=== PATIENT | female | born 1965 | race African-American/Black ===

== ENCOUNTER 2018-02-28 01:24 | Emergency (ER) | payer OTHER ==
[2018-02-28 01:55] LABS: Protime INR 1.03
[2018-02-28 02:04] LABS: Absolute Lymphocytes (CBC) 0.8 K/uL (0.7-4.9); Absolute Monocytes 0.1 K/uL (0.1-1.3); Absolute Neutrophil 5.6 K/uL (1.8-8.0); Basophils % 0.3 % (0-1.3); Eosinophils % 0.2 % (0-4.4); Hematocrit 39.4 % (36.0-45.0); Lymphocytes % 12.7 % (15.3-44.8); MCH 26.5 pg (27.0-35.0); MCV 85.3 fL (80-100); MPV 8.9 fL (7.6-11.3); Monocytes % 2.3 % (3.3-12.3); RBC Red Blood Cell Count 4.62 M/uL (3.86-4.86)
[2018-02-28 02:11] LABS: ALT/SGPT 14 U/L (12-78); AST/SGOT 15 U/L (15-37); Albumin 3.5 g/dL (3.4-5.0); Alkaline Phosphatase 72 U/L (45-117); BUN Blood Urea Nitrogen 8 mg/dL (7-18); Bicarbonate 28 mmol/L (21-32); Bilirubin Direct < 0.1 mg/dL (0-0.2); Bilirubin Total 0.1 mg/dL (0.2-1.0); Glucose Level 106 mg/dL (74-106); Magnesium 2.1 mg/dL (1.8-2.4); Potassium 4.2 mmol/L (3.5-5.1); Protein, Total 7.3 g/dL (6.4-8.2); Sodium Level 139 mmol/L (136-145)
[2018-02-28] MEDS ORDERED: IPRATROPIUM BROM 0.5MG/2.5ML ONE (02:43)
[2018-02-28] MEDS ORDERED: ALBUTEROL 2.5 MG/3 ML NEB SOL ONE (02:43)
[2018-02-28] MEDS ORDERED: ONDANSETRON 4 MG/2 ML VIAL ONE (02:43)
[2018-02-28] MEDS ORDERED: KETOROLAC 30 MG/ML INJ ONE (04:12)
--- NOTE | 2018-02-28 05:50 | ER ---
Nurse's Notes [facility] Name: Martha Riojas Age: 52 yrs Sex: Female : 1965 Arrival Date: 02/28/2018 Time: 01:30 Bed 27 Private MD: Diagnosis: Chest pain, unspecified Presentation: 02/28 01:31 Presenting complaint: EMS states: they were toned out for report of chest pain, SOB x 4 bb days pain is worsening. Transition of care: patient was not received from another setting of care. Onset of symptoms was February 23, 2018. Risk Assessment: Do you want to hurt yourself or someone else? Patient reports no desire to harm self or others. Initial Sepsis Screen: Does the patient meet any 2 criteria? No. Patient's initial sepsis screen is negative. Does the patient have a suspected source of infection? No. Patient's initial sepsis screen is negative. Care prior to arrival: Medication(s) given: ASA, 325 mg, x 1, Nitroglycerin, 0.4 mg SL x 1, zofran 4 mg, IV initiated. 20 GA, in the left antecubital area, Oxygen administered. via nasal cannula. 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 bb Historical: - Allergies: 01:40 Prednisone; I'M ALLERGIC TO IT BUT I HAVE TO TAKE IT FROM TIME TO TIME.; bb - Home Meds: 01:40 amlodipine 5 mg tab 1 tab once daily [Active]; metoprolol tartrate 100 mg Oral tab 1 bb tab 2 times per day [Active]; potassium chloride 10 mEq Oral cpER 1 cap once daily [Active]; metoprolol tartrate 25 mg Oral tab [Active]; furosemide 40 mg Oral tab 1 tab 2 times per day [Active]; nitroglycerin 0.4 mg SL subl as needed [Active]; cyclobenzaprine 10 mg Oral tab [Active]; Promethazine Oral [Active]; Zolpidem Tartrate Oral [Active]; - PMHx: 01:40 CHF; COPD; CVA; Diabetes - IDDM; Hypertension; Myocardial infarction; bb - PSHx: 01:40 Tubal ligation; cyst removal; bb - Immunization history:: Adult Immunizations up to date. - Social history:: Smoking status: Patient/guardian denies using tobacco, Patient/guardian denies using alcohol, street drugs. - Ebola Screening: : No symptoms or risks identified at this time. Screenin:43 Abuse screen: Denies threats or abuse. Nutritional screening: No deficits noted. bb Tuberculosis screening: No symptoms or risk factors identified. Fall Risk Secondary diagnosis (15 points) IV access (20 points). Ambulatory Aid- None/Bed Rest/Nurse Assist (0 pts). Mental Status- Oriented to own ability (0 pts). Total Lovell Fall Scale indicates Low Risk Score (25-44 pts). Fall prevention measures have been instituted. Side Rails Up X 2 As available Patient and Family Educated on Fall Prevention Program and strategies. Assessment: 02:25 General: Appears distressed, uncomfortable, Behavior is calm, cooperative, appropriate mb3 for age. Pain: Complains of pain in chest Pain does not radiate. Pain began gradually. Neuro: Level of Consciousness is awake, alert, obeys commands, Oriented to person, place, time, situation, Appropriate for age. Cardiovascular: Reports chest pain, nausea, shortness of breath, Heart tones present Capillary refill < 3 seconds Patient's skin is warm and dry. Pulses are palpable in right radial artery, right dorsalis pedis artery, left radial artery and left dorsalis pedis artery. Respiratory: Airway is patent Respiratory effort is even, labored, Respiratory pattern is tachypnea Stridor noted Breath sounds with wheezes bilaterally. GI: Abdomen is round obese, Bowel sounds present X 4 quads. Abd is soft and non tender Reports nausea. : No deficits noted. No signs and/or symptoms were reported regarding the genitourinary system. 04:03 Reassessment: Patient and/or family updated on plan of care and expected duration. Pain bb level reassessed. pt returned from CT scan via stretcher and is A\T\O x 4, resp unlabored, states she is having chest pain 06/18 Dr Solorio notified awaiting new orders. 05:05 Reassessment: pt appears to be sleeping, eyes closed, resp unlabored, no signs of bb discomfort noted, pt is awaiting CT results. 06:01 Reassessment: Pt is A\T\O x 4, resp unlabored, Dr Solorio at bedside for discussion of bb findings and recommendations pt to be discharged home and follow-up with PCP pt verbalized understanding of and agrees to plan of care. Pt awaiting arrival of daughter for transport home. Vital Signs: 01:40 BP 153 / 93; Pulse 69; Resp 18 S; Temp 97.8(O); Pulse Ox 96% on 2 lpm NC; Weight 81.65 bb kg (R); Height 5 ft. 3 in. (160.02 cm) (R); Pain 8/10; 02:54 BP 129 / 87; Pulse 70; Resp 19; Pulse Ox 100% on 3 lpm NC; mb3 04:04 BP 146 / 69; Pulse 80; Resp 20 S; Temp 98.4(O); Pulse Ox 96% on 2 lpm NC; Pain 10/10; bb 05:06 BP 104 / 68; Pulse 71; Resp 16; Pulse Ox 96% on 2 lpm NC; bb 06:02 BP 136 / 90; Pulse 72; Resp 14 S; Temp 98.4(O); Pulse Ox 97% on R/A; Pain 4/10; bb 01:40 Body Mass Index 31.89 (81.65 kg, 160.02 cm) bb ED Course: 01:30 Patient arrived in ED. bb 01:32 Bran Solorio MD is Attending Physician. gs 01:34 Triage completed. bb 01:40 Arm band placed on Patient placed in an exam room, on a stretcher, on oxygen. EKG bb completed in triage. Results shown to MD. 01:43 Initial lab(s) drawn, by ED staff, sent to lab. EKG done. Oxygen administration via bb nasal cannula \T\ 2L/min. 01:44 Patient has correct armband on for positive identification. Placed in gown. Bed in low bb position. Call light in reach. Side rails up X2. quality assurance monitor chassis on. Pulse ox on. NIBP on. 01:50 X-ray completed. Portable x-ray completed in exam room. Patient tolerated procedure kw well. 01:51 XRAY Chest (1 view) In Process Unspecified. EDMS 04:11 CT completed. Patient tolerated procedure well. Patient moved to CT via stretcher. Patient moved back from CT. 04:16 CT Chest For PE Angio In Process Unspecified. EDMS 04:23 Repeat lab(s) drawn. by me, sent to lab. bb 06:03 No provider procedures requiring assistance completed. IV discontinued, intact, bb bleeding controlled, No redness/swelling at site. Pressure dressing applied. Administered Medications: 02:47 Drug: Zofran 4 mg Route: IVP; Site: left antecubital; mb3 04:15 Follow up: Response: No adverse reaction bb 02:47 Drug: Albuterol 2.5 mg Route: Inhalation; mb3 02:47 Drug: AtroVENT Aerosol 0.5 mg Route: Inhalation; mb3 04:15 Drug: TORadol 30 mg Route: IVP; Site: left antecubital; bb 05:07 Follow up: Response: No adverse reaction; Pain is decreased bb Outcome: 05:49 Discharge ordered by . 06:06 Discharged to home with family. bb 06:06 Condition: stable 06:06 Discharge instructions given to patient, Instructed on discharge instructions, follow up and referral plans. medication usage, Demonstrated understanding of instructions, follow-up care. 06:58 Patient left the ED. bb Signatures: Dispatcher [employer] EDMS Evans Ochoa Brenda, RN RN bb Alize Millan Gregory, MD MD Shaw Townsend, RN RN mb3
--- NOTE | 2018-02-28 05:50 | EDPHYS ---
Physician Documentation [facility] Name: Martha Riojas Age: 52 yrs Sex: Female : 1965 Arrival Date: 02/28/2018 Time: 01:30 Bed 27 Private MD: ED Physician Bran Solorio HPI: 02/28 05:42 This 52 yrs old Black Female presents to ER via EMS with complaints of Chest Pain > 30 gs y/o. 05:42 The patient or guardian reports chest pain that is located primarily in the anterior gs chest wall. Onset: 5 day(s) ago. Associated signs and symptoms: Pertinent negatives: diaphoresis, shortness of breath, syncope. The chest pain is described as dull. Duration: The patient or guardian reports a single episode, that is still ongoing, and unchanged. Modifying factors: The symptoms are alleviated by nothing. the symptoms are aggravated by nothing. Severity of pain: At its worst the pain was moderate in the emergency department the pain has improved mildly. The patient has experienced similar episodes in the past, a few times. 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 bb Historical: - Allergies: 01:40 Prednisone; I'M ALLERGIC TO IT BUT I HAVE TO TAKE IT FROM TIME TO TIME.; bb - Home Meds: 01:40 amlodipine 5 mg tab 1 tab once daily [Active]; metoprolol tartrate 100 mg Oral tab 1 bb tab 2 times per day [Active]; potassium chloride 10 mEq Oral cpER 1 cap once daily [Active]; metoprolol tartrate 25 mg Oral tab [Active]; furosemide 40 mg Oral tab 1 tab 2 times per day [Active]; nitroglycerin 0.4 mg SL subl as needed [Active]; cyclobenzaprine 10 mg Oral tab [Active]; Promethazine Oral [Active]; Zolpidem Tartrate Oral [Active]; - PMHx: 01:40 CHF; COPD; CVA; Diabetes - IDDM; Hypertension; Myocardial infarction; bb - PSHx: 01:40 Tubal ligation; cyst removal; bb - Immunization history:: Adult Immunizations up to date. - Social history:: Smoking status: Patient/guardian denies using tobacco, Patient/guardian denies using alcohol, street drugs. - Ebola Screening: : No symptoms or risks identified at this time. ROS: 05:42 All other systems are negative. gs Exam: 05:42 Head/Face: Normocephalic, atraumatic. Eyes: Pupils equal round and reactive to light, gs extra-ocular motions intact. Lids and lashes normal. Conjunctiva and sclera are non-icteric and not injected. Cornea within normal limits. Periorbital areas with no swelling, redness, or edema. ENT: Nares patent. No nasal discharge, no septal abnormalities noted. Tympanic membranes are normal and external auditory canals are clear. Oropharynx with no redness, swelling, or masses, exudates, or evidence of obstruction, uvula midline. Mucous membranes moist. Neck: Trachea midline, no thyromegaly or masses palpated, and no cervical lymphadenopathy. Supple, full range of motion without nuchal rigidity, or vertebral point tenderness. No Meningismus. Chest/axilla: Normal chest wall appearance and motion. Nontender with no deformity. No lesions are appreciated. Cardiovascular: Regular rate and rhythm with a normal S1 and S2. No gallops, murmurs, or rubs. Normal PMI, no JVD. No pulse deficits. Respiratory: Lungs have equal breath sounds bilaterally, clear to auscultation and percussion. No rales, rhonchi or wheezes noted. No increased work of breathing, no retractions or nasal flaring. Abdomen/GI: Soft, non-tender, with normal bowel sounds. No distension or tympany. No guarding or rebound. No evidence of tenderness throughout. Back: No spinal tenderness. No costovertebral tenderness. Full range of motion. Skin: Warm, dry with normal turgor. Normal color with no rashes, no lesions, and no evidence of cellulitis. MS/ Extremity: Pulses equal, no cyanosis. Neurovascular intact. Full, normal range of motion. Neuro: Awake and alert, GCS 15, oriented to person, place, time, and situation. Cranial nerves II-XII grossly intact. Motor strength 5/5 in all extremities. Sensory grossly intact. Cerebellar exam normal. Normal gait. 05:42 Constitutional: The patient appears alert, awake. 05:42 ECG was reviewed by the Attending Physician. Vital Signs: 01:40 BP 153 / 93; Pulse 69; Resp 18 S; Temp 97.8(O); Pulse Ox 96% on 2 lpm NC; Weight 81.65 bb kg (R); Height 5 ft. 3 in. (160.02 cm) (R); Pain 8/10; 02:54 BP 129 / 87; Pulse 70; Resp 19; Pulse Ox 100% on 3 lpm NC; mb3 04:04 BP 146 / 69; Pulse 80; Resp 20 S; Temp 98.4(O); Pulse Ox 96% on 2 lpm NC; Pain 10/10; bb 05:06 BP 104 / 68; Pulse 71; Resp 16; Pulse Ox 96% on 2 lpm NC; bb 06:02 BP 136 / 90; Pulse 72; Resp 14 S; Temp 98.4(O); Pulse Ox 97% on R/A; Pain 4/10; bb 01:40 Body Mass Index 31.89 (81.65 kg, 160.02 cm) MDM: 01:39 Patient medically screened. 05:42 Differential diagnosis: abnormal EKG, coronary artery disease chest wall pain. Data gs reviewed: vital signs, nurses notes. Data reviewed: lab test result(s), EKG, radiologic studies. Response to treatment: the patient's symptoms have resolved after treatment, and as a result, I will discharge patient. 02/28 01:40 Order name: Basic Metabolic Panel 02/28 01:40 Order name: CBC with Diff 02/28 01:40 Order name: LFT's; Complete Time: 02:26 02/28 01:40 Order name: Magnesium; Complete Time: 02:26 02/28 01:40 Order name: PT-INR; Complete Time: 02:26 02/28 01:40 Order name: Troponin (emerg Dept Use Only); Complete Time: 02:26 02/28 01:40 Order name: XRAY Chest (1 view) 02/28 01:40 Order name: Basic Metabolic Panel; Complete Time: 02:26 EDMS 02/28 01:40 Order name: CBC with Automated Diff; Complete Time: 02:26 EDMS 02/28 03:23 Order name: CT Chest For PE Angio 02/28 03:23 Order name: Troponin I; Complete Time: 05:29 02/28 01:40 Order name: EKG; Complete Time: 01:41 02/28 01:40 Order name: Cardiac monitoring; Complete Time: 01:42 02/28 01:40 Order name: EKG - Nurse/Tech; Complete Time: :42 02/28 01:40 Order name: IV Saline Lock; Complete Time: 02/28 01:40 Order name: Labs collected and sent; Complete Time: :43 02/28 01:40 Order name: O2 Per Protocol; Complete Time: : 02/28 01:40 Order name: O2 Sat Monitoring; Complete Time: EC:42 Rate is 63 beats/min. Rhythm is regular. MT interval is normal. QRS interval is normal. QT interval is normal. T waves are Flattened in lead aVL. Clinical impression: Abnormal EKG without significant change. Interpreted by me. Administered Medications: 02:47 Drug: Zofran 4 mg Route: IVP; Site: left antecubital; mb3 04:15 Follow up: Response: No adverse reaction bb 02:47 Drug: Albuterol 2.5 mg Route: Inhalation; mb3 02:47 Drug: AtroVENT Aerosol 0.5 mg Route: Inhalation; mb3 04:15 Drug: TORadol 30 mg Route: IVP; Site: left antecubital; bb 05:07 Follow up: Response: No adverse reaction; Pain is decreased bb Disposition: 02/28/18 05:49 Discharged to Home. Impression: Chest pain, unspecified. - Condition is Stable. - Discharge Instructions: Nonspecific Chest Pain. - Medication Reconciliation Form, Thank You Letter, Antibiotic Education, Prescription Opioid Use form. - Follow up: Private Physician; When: 2 - 3 days; Reason: Re-evaluation by your physician. Signatures: Dispatcher [employer] Crissy Lauren RN RN Bran Green MD MD gs Barnett, Mark, RN RN mb3 Corrections: (The following items were deleted from the chart) 06:58 05:49 02/28/2018 05:49 Discharged to Home. Impression: Chest pain, unspecified. bb Condition is Stable. Forms are Medication Reconciliation Form, Thank You Letter, Antibiotic Education, Prescription Opioid Use. Follow up: Private Physician; When: 2 - 3 days; Reason: Re-evaluation by your physician.
[2018-02-28 07:05] VITALS: TEMP 98.4
[2018-02-28 07:08] VITALS: BP 136/90; O2SAT 97
--- NOTE | 2018-02-28 09:39 | RAD REPORT ---
EXAM DESCRIPTION: CT - Chest For Pe Angio - 02/28/2018 6:58 am CLINICAL HISTORY: Chest pain and shortness of breath for 4 days COMPARISON: January 2017 TECHNIQUE: Dynamically enhanced axial 3 mm thick images of the chest were obtained during administra tion of <100> mL Isovue 370 IV contrast. Coronal and oblique reconstruction images were generated and reviewed. Exam utilizes a protocol for optimal evaluation of pulmonary arterial tree.A preliminary r eport was generated by virtual radiologic and reviewed prior to this dictation Maximum intensity projections 3D imaging was utilized All CT scans are performed using dose optimization technique as appropriate and may include automated exposure control or mA/KV adjustment according to patient size. FINDINGS: A pulmonary embolus is not seen. Evaluation of the peripheral pulmonary arteries is somewh at limited secondary to respiratory motion artifact. A thoracic aortic aneurysm is not noted. A pleural effusion is not seen. A pericardial effusion is not seen. A lung consolidation is not present. IMPRESSION: Negative for a pulmonary embolism.
--- NOTE | 2018-02-28 09:55 | RAD REPORT ---
EXAM DESCRIPTION: Jo Single View02/28/2018 1:53 am CLINICAL HISTORY: Chest pain COMPARISON: January 2017 FINDINGS: The lungs appear clear of acute infiltrate. The heart is normal size IMPRESSION: No acute abnormalities displayed
--- NOTE | 2018-02-28 11:13 | EKG ---
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
== END 2018-02-28 06:58 | disposition home or self-care (01) ==
LOC: ER 01:24
DX: R07.9 Chest pain, unspecified (principal); I10 Essential (primary) hypertension; I25.2 Old myocardial infarction; J44.9 Chronic obstructive pulmonary disease, unspecified
CPT/HCPCS: 36415; 71045; 71275; 80048; 80076; 83735; 84484 ×2; 85025; 85610; 93005; 96374; 96375; 99285; J2405; Q9967

== ENCOUNTER 2018-04-06 06:46 | Emergency (ER) | payer OTHER ==
[2018-04-06] MEDS ORDERED: NA CHLORIDE 0.9% 1,000 ML ONE (07:31)
--- NOTE | 2018-04-06 07:42 | RAD REPORT ---
EXAM DESCRIPTION: CT - Ct Stroke Brain Wo Cont - 04/06/2018 7:30 am CLINICAL HISTORY: Left-sided weakness, slurred speech CLINICAL HISTORY: None. TECHNIQUE: Axial 5 millimeter thick images of the head were obtained without IV contrast. All CT scans are performed using dose optimization technique as appropriate and may include automated exposure control or mA/KV adjustment according to patient size. FINDINGS: No intracranial hemorrhage, mass, or cerebral edema. No acute cortical based infarction. A trophy changes are minimal. Moderate chronic ischemic change in the cerebral white matter. Findings a re advanced for age. Chronic ischemic changes still most likely rather than metabolic white matter di sease. No extra-axial fluid collections. Soni matter-white matter differentiation is preserved. Visualized portions of the mastoid air cells, paranasal sinuses, and orbits are unremarkable. Findings telephoned to the referring clinician 7:36 a.m. IMPRESSION: No intracranial hemorrhage and no acute cortical based infarction identifiable. Patient has moderate severity white matter disease. This is advanced for age but still favored to be chronic ischemic change rather than a metabolic white matter process.
[2018-04-06] MEDS ORDERED: IPRATROPIUM BROM 0.5MG/2.5ML ONE (08:16)
[2018-04-06] MEDS ORDERED: ALBUTEROL 2.5 MG/3 ML NEB SOL ONE (08:16)
[2018-04-06] MEDS ORDERED: HYDRALAZINE HCL 20 MG/ML VIAL ONE (08:17)
[2018-04-06] MEDS ORDERED: HYDROCODONE/APAP 7.5/325 MG TAB ONE (08:17)
[2018-04-06 08:37] LABS: Absolute Lymphocytes (CBC) 2.2 K/uL (0.7-4.9); Absolute Monocytes 0.5 K/uL (0.1-1.3); Absolute Neutrophil 2.9 K/uL (1.8-8.0); Basophils % 0.6 % (0-1.3); Eosinophils % 0.8 % (0-4.4); Hematocrit 36.9 % (36.0-45.0); Lymphocytes % 38.9 % (15.3-44.8); MCH 28.5 pg (27.0-35.0); MCV 87.4 fL (80-100); Monocytes % 8.9 % (3.3-12.3); RBC Red Blood Cell Count 4.22 M/uL (3.86-4.86)
[2018-04-06 08:41] LABS: Protime INR 1.03
[2018-04-06 08:54] LABS: ALT/SGPT 12 U/L (12-78); AST/SGOT 15 U/L (15-37); Albumin 3.2 g/dL (3.4-5.0); Alkaline Phosphatase 68 U/L (45-117); BUN Blood Urea Nitrogen 8 mg/dL (7-18); Bicarbonate 27 mmol/L (21-32); Bilirubin Direct < 0.1 mg/dL (0-0.2); Bilirubin Total 0.2 mg/dL (0.2-1.0); CKMB Creatine Kinase MB < 1.0 ng/mL (0.3-3.6); Creatine Phosphokinase 172 U/L (26-192); Glucose Level 78 mg/dL (74-106); Magnesium 2.3 mg/dL (1.8-2.4); NT PRO-BNP 31 pg/mL (<125); Potassium 3.9 mmol/L (3.5-5.1); Protein, Total 6.8 g/dL (6.4-8.2); Sodium Level 142 mmol/L (136-145)
[2018-04-06 09:15] LABS: Platelet Estimate DECR
[2018-04-06 09:16] LABS: Blood Morphology Comment NOT SEEN (NOT SEEN)
[2018-04-06 09:17] LABS: Urine White Blood Cell Casts OK
[2018-04-06 09:58] LABS: Urine Blood TRACE (NEG); Urine Glucose NEGATIVE (NEG); Urine Protein TRACE (NEG); Urine pH 5.5 (5.0-7.0)
[2018-04-06 10:04] LABS: Urine Amorphous Sediment 1+ /HPF (NONE SEEN); Urine Bacteria <20 /HPF (<20); Urine Culture Reflex Order REFLEXED; Urine Yeast FEW (NONE SEEN)
--- NOTE | 2018-04-06 10:19 | ER ---
Nurse's Notes [facility] Name: Martha Riojas Age: 52 yrs Sex: Female : 1965 Arrival Date: 04/06/2018 Time: 06:49 Bed 13 Private MD: Nikole Johnston H Diagnosis: Unspecified abdominal pain;Hypokalemia;Alcohol abuse with intoxication;Candidiasis of vulva and vagina Presentation: 04/06 06:50 Method Of Arrival: Ambulatory 06:50 Acuity: SOL 3 06:50 Presenting complaint: Patient states: that at 1800 last night she started to have left fc arm and leg numbness along with chest pain. Also having dizziness, nausea, vomiting and diarrhea. Pt states that she saw Dr Johnston last Saturday for a stroke that he thinks she had 1 week ago. Transition of care: patient was not received from another setting of care. Onset of symptoms was April 05, 2018 at 18:00. Risk Assessment: Do you want to hurt yourself or someone else? Patient reports no desire to harm self or others. Initial Sepsis Screen: Does the patient meet any 2 criteria? No. Patient's initial sepsis screen is negative. Does the patient have a suspected source of infection? No. Patient's initial sepsis screen is negative. Care prior to arrival: Medication(s) given: Nitroglycerin, 0.4 mg SL x 2, Tylenol, at 0100 at 0045. 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 Historical: - Allergies: 07:18 Prednisone; I'M ALLERGIC TO IT BUT I HAVE TO TAKE IT FROM TIME TO TIME.; fc - Home Meds: 07:00 amlodipine 5 mg tab 1 tab once daily [Active]; cyclobenzaprine 10 mg Oral tab [Active]; rb1 furosemide 40 mg Oral tab 1 tab 2 times per day [Active]; metoprolol tartrate 100 mg Oral tab 1 tab 2 times per day [Active]; metoprolol tartrate 25 mg Oral tab [Active]; nitroglycerin 0.4 mg SL subl as needed [Active]; potassium chloride 10 mEq Oral cpER 1 cap once daily [Active]; Promethazine Oral [Active]; Zolpidem Tartrate Oral [Active]; - PMHx: 07:18 CHF; COPD; CVA; Diabetes - IDDM; Hypertension; Myocardial infarction; fc - PSHx: 07:18 ; fc 07:00 Tubal ligation; rb1 - Immunization history:: Last tetanus immunization: unknown. - Social history:: Smoking status: Patient/guardian denies using tobacco. - Ebola Screening: : Patient negative for fever greater than or equal to 101.5 degrees Fahrenheit, and additional compatible Ebola Virus Disease symptoms Patient denies exposure to infectious person Patient denies travel to an Ebola-affected area in the 21 days before illness onset. Screenin:50 Abuse screen: Denies threats or abuse. Nutritional screening: No deficits noted. fc Tuberculosis screening: No symptoms or risk factors identified. Fall Risk None identified. Assessment: 06:55 General: Appears in no apparent distress. comfortable, Behavior is Denies fever. Pain: rb1 Complains of pain in mid-sternal area Pain currently is 6 out of 10 on a pain scale. Pain began last night. Neuro: Level of Consciousness is awake, alert, obeys commands, Oriented to person, place, time, situation. Neuro: Box Tender are weak on left Weakness in left Gait is steady, Speech is normal, Facial symmetry appears normal, Pupils are PERRLA. Cardiovascular: Capillary refill < 3 seconds is brisk in bilateral fingers. Respiratory: Airway is patent Respiratory effort is even, unlabored, Respiratory pattern is regular, symmetrical. GI: Reports diarrhea, nausea. : No signs and/or symptoms were reported regarding the genitourinary system. Derm: Skin is dry, Skin is normal, Skin temperature is warm. Musculoskeletal: Range of motion: intact in all extremities. 07:52 Reassessment: Patient appears in no apparent distress at this time. No changes from rb1 previously documented assessment. 08:50 Reassessment: Patient appears in no apparent distress at this time. Patient and/or rb1 family updated on plan of care and expected duration. Pain level reassessed. Patient is alert, oriented x 3, equal unlabored respirations, skin warm/dry/pink. 09:10 Reassessment: Pt. ambulated to the restroom with standby assist without difficulty. rb1 10:00 Reassessment: Patient and/or family updated on plan of care and expected duration. Pain rb1 level reassessed. Patient is alert, oriented x 3, equal unlabored respirations, skin warm/dry/pink. 10:45 Reassessment: Patient appears in no apparent distress at this time. No changes from rb1 previously documented assessment. Vital Signs: 06:50 BP 190 / 82; Pulse 70; Resp 20; Temp 97.2(O); Pulse Ox 97% on R/A; Weight 83.01 kg (R); fc Height 5 ft. 3 in. (160.02 cm) (R); Pain 6/10; 07:45 BP 131 / 70; Pulse 58; Resp 15; Pulse Ox 97% on R/A; rb1 08:30 BP 165 / 67; Pulse 51; Resp 13; Pulse Ox 97% on R/A; rb1 09:00 BP 139 / 79; Pulse 74; Resp 20; Pulse Ox 95% on R/A; rb1 10:00 BP 141 / 82; Pulse 68; Resp 19; Pulse Ox 99% on R/A; rb1 06:50 Body Mass Index 32.42 (83.01 kg, 160.02 cm) ED Course: 06:49 Patient arrived in ED. es 06:50 Nikole Johnston DO is Private Physician. es 06:50 Karine Sanchez F[facility] kav 06:50 Thanh Echevarria MD is Attending Physician. kav 06:50 Arm band placed on Patient placed in an exam room, on a stretcher. fc 06:50 Patient has correct armband on for positive identification. Placed in gown. Bed in low fc position. Call light in reach. Side rails up X 1. cafeteria monitor on. Pulse ox on. NIBP on. 06:50 No provider procedures requiring assistance completed. fc 07:12 Triage completed. fc 07:15 Vale Basurto, RN is Primary Nurse. rb1 07:30 CT Stroke Brain w/o Contrast In Process Unspecified. EDMS 08:00 X-ray completed. Portable x-ray completed in exam room. Patient tolerated procedure mh1 well. 08:01 XRAY Chest (1 view) In Process Unspecified. EDMS 08:23 Inserted saline lock: 20 gauge in left antecubital area, using aseptic technique. em 08:28 Missed attempt(s): 20 gauge in right antecubital area. Blood collected and sent.. ag Bleeding controlled, band aid applied, catheter tip intact. 08:31 Basic Metabolic Panel Sent. ag 08:31 CBC with Diff Sent. ag 08:31 Ckmb Sent. ag 08:31 CPK Sent. ag 08:31 LFT's Sent. ag 08:31 Magnesium Sent. ag 08:31 NT PRO-BNP Sent. ag 08:31 PT-INR Sent. ag 08:31 Ptt, Activated Sent. ag 10:17 Vickie EmmaDO Sebastian is Referral Physician. kav 10:53 Patient did not have IV access during this emergency room visit. rb1 Administered Medications: 08:23 Drug: DuoNeb (3:1) (2.5 mg - 0.5 mg) 3 ml {Note: I was in with a trauma pt..} Route: rb1 Nebulizer; 08:43 Follow up: Response: No adverse reaction; Marked relief of symptoms rb1 08:23 Drug: [place] (7.5 mg-325 mg) 1 tabs {Note: I was in with a trauma pt..} Route: PO; rb1 09:00 Follow up: Response: No adverse reaction; Pain is decreased rb1 09:40 Not Given (md): hydrALAZINE 10 mg IV at bolus once [facility] Point of Care Testing: Blood Glucose: 08:37 Blood Glucose: 65 mg/dL; rb1 09:18 Blood Glucose: 113 mg/dL; rb1 Ranges: Outcome: 10:18 Discharge ordered by MD. ka 10:53 Patient left the ED. ss 10:53 Discharged to home ambulatory. rb1 10:53 Discharged to home with family. 10:53 Condition: stable 10:53 Discharge instructions given to patient, Instructed on discharge instructions, follow up and referral plans. Demonstrated understanding of instructions, follow-up care, medications, Prescriptions given X 2. Signatures: Dispatcher [employer] Karine Eng, WELCOME DESK AGENT WELCOME DESK AGENT kaMelissa Maki Martha 1 Tati Shay, Louis Chaidez RN, TRANSISTOR TESTER TRANSISTOR TESTER Mercedes Souza RN RN Kinza Cochran Rebecca, RN RN rb1
--- NOTE | 2018-04-06 10:19 | EDPHYS ---
Physician Documentation [facility] Name: Martha Riojas Age: 52 yrs Sex: Female : 1965 Arrival Date: 04/06/2018 Time: 06:49 Bed 13 Private MD: Nikole Johnston H ED Physician Thanh Echevarria HPI: 04/06 06:50 This 52 yrs old Black Female presents to ER via Unassigned with complaints of Numbness. kav 07:04 This 52 yrs old Black Female presents to ER via Unassigned with complaints of Numbness. kav 07:04 The patient's problem is reported as weakness, in the left upper extremity. Onset: The kav symptoms/episode began/occurred acutely, 24 hour(s) ago. Duration: The episode is continuous. Context:. Associated signs and symptoms: Pertinent positives: chest pain, weakness. Severity of symptoms: At their worst the symptoms were moderate just prior to arrival. Patient's baseline: Neuro: alert and fully oriented, Motor: left-sided weakness, Ambulation: walks without assistance, Speech: normal, The patient has a previous history of CVA, approximately 1 week ago. The patient has experienced a previous episode, approximately 1 weeks ago. Patient reports that she had a stroke approximately 1 week ago. She reports that she was seen by her PCP/Dr. Johnston 3 days ago and is schedule to have an outpatient MRI this next week. She reports having chest pain \T\ 1200 midnight and increasing weakness in the LUE.. 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 fc Historical: - Allergies: 07:18 Prednisone; I'M ALLERGIC TO IT BUT I HAVE TO TAKE IT FROM TIME TO TIME.; fc - Home Meds: 07:00 amlodipine 5 mg tab 1 tab once daily [Active]; cyclobenzaprine 10 mg Oral tab [Active]; rb1 furosemide 40 mg Oral tab 1 tab 2 times per day [Active]; metoprolol tartrate 100 mg Oral tab 1 tab 2 times per day [Active]; metoprolol tartrate 25 mg Oral tab [Active]; nitroglycerin 0.4 mg SL subl as needed [Active]; potassium chloride 10 mEq Oral cpER 1 cap once daily [Active]; Promethazine Oral [Active]; Zolpidem Tartrate Oral [Active]; - PMHx: 07:18 CHF; COPD; CVA; Diabetes - IDDM; Hypertension; Myocardial infarction; fc - PSHx: 07:18 ; fc 07:00 Tubal ligation; rb1 - Immunization history:: Last tetanus immunization: unknown. - Social history:: Smoking status: Patient/guardian denies using tobacco. - Ebola Screening: : Patient negative for fever greater than or equal to 101.5 degrees Fahrenheit, and additional compatible Ebola Virus Disease symptoms Patient denies exposure to infectious person Patient denies travel to an Ebola-affected area in the 21 days before illness onset. ROS: 07:09 Constitutional: Negative for fever, chills, and weight loss, Eyes: Negative for injury, kav pain, redness, and discharge, ENT: Negative for injury, pain, and discharge, Neck: Negative for injury, pain, and swelling, Respiratory: Negative for shortness of breath, cough, wheezing, and pleuritic chest pain, Abdomen/GI: Negative for abdominal pain, nausea, vomiting, diarrhea, and constipation, Back: Negative for injury and pain, : Negative for injury, bleeding, discharge, and swelling, MS/Extremity: Negative for injury and deformity, Skin: Negative for injury, rash, and discoloration, Psych: Negative for depression, anxiety, suicide ideation, homicidal ideation, and hallucinations, Allergy/Immunology: Negative for hives, rash, and allergies, Endocrine: Negative for neck swelling, polydipsia, polyuria, polyphagia, and marked weight changes, Hematologic/Lymphatic: Negative for swollen nodes, abnormal bleeding, and unusual bruising. 07:14 Cardiovascular: Positive for chest pain, of the mid-sternal area. kav 07:14 Neuro: Positive for weakness, of the left arm. Exam: 07:15 Constitutional: This is a well developed, well nourished patient who is awake, alert, kav and in no acute distress. Head/Face: Normocephalic, atraumatic. Eyes: Pupils equal round and reactive to light, extra-ocular motions intact. Lids and lashes normal. Conjunctiva and sclera are non-icteric and not injected. Cornea within normal limits. Periorbital areas with no swelling, redness, or edema. ENT: Nares patent. No nasal discharge, no septal abnormalities noted. Tympanic membranes are normal and external auditory canals are clear. Oropharynx with no redness, swelling, or masses, exudates, or evidence of obstruction, uvula midline. Mucous membranes moist. Neck: Trachea midline, no thyromegaly or masses palpated, and no cervical lymphadenopathy. Supple, full range of motion without nuchal rigidity, or vertebral point tenderness. No Meningismus. Chest/axilla: Normal chest wall appearance and motion. Nontender with no deformity. No lesions are appreciated. Abdomen/GI: Soft, non-tender, with normal bowel sounds. No distension or tympany. No guarding or rebound. No evidence of tenderness throughout. Back: No spinal tenderness. No costovertebral tenderness. Full range of motion. Skin: Warm, dry with normal turgor. Normal color with no rashes, no lesions, and no evidence of cellulitis. MS/ Extremity: Pulses equal, no cyanosis. Neurovascular intact. Full, normal range of motion. Psych: Awake, alert, with orientation to person, place and time. Behavior, mood, and affect are within normal limits. 10:19 Radiologist reports: negative for acute findings [facility] Vital Signs: 06:50 BP 190 / 82; Pulse 70; Resp 20; Temp 97.2(O); Pulse Ox 97% on R/A; Weight 83.01 kg (R); fc Height 5 ft. 3 in. (160.02 cm) (R); Pain 6/10; 07:45 BP 131 / 70; Pulse 58; Resp 15; Pulse Ox 97% on R/A; rb1 08:30 BP 165 / 67; Pulse 51; Resp 13; Pulse Ox 97% on R/A; rb1 09:00 BP 139 / 79; Pulse 74; Resp 20; Pulse Ox 95% on R/A; rb1 10:00 BP 141 / 82; Pulse 68; Resp 19; Pulse Ox 99% on R/A; rb1 06:50 Body Mass Index 32.42 (83.01 kg, 160.02 cm) MDM: 07:09 Patient medically screened. [facility] 07:44 Data reviewed: radiologic studies, CT scan. [facility] 08:02 ED course: awaiting labs and urine results. [facility] 09:24 ED course: Awaiting Urine Results. [facility] 04/06 07:13 Order name: Basic Metabolic Panel; Complete Time: 08:56 [facility] 04/06 07:13 Order name: CBC with Diff; Complete Time: 09:23 04/06 07:13 Order name: Ckmb; Complete Time: 08:56 04/06 07:13 Order name: CPK; Complete Time: 08:56 04/06 07:13 Order name: LFT's; Complete Time: 08:56 04/06 07:13 Order name: Magnesium; Complete Time: 08:56 04/06 07:13 Order name: NT PRO-BNP; Complete Time: 08:56 04/06 07:13 Order name: PT-INR; Complete Time: 08:48 04/06 07:13 Order name: Ptt, Activated; Complete Time: 08:48 04/06 07:13 Order name: Troponin (emerg Dept Use Only); Complete Time: 08:48 04/06 07:13 Order name: Urine Microscopic Only; Complete Time: 10:13 04/06 08:38 Order name: CBC Smear Scan; Complete Time: 09:23 EDMS 04/06 09:48 Order name: Urine Dipstick--Ancillary (enter results) 04/06 09:48 Order name: Urine --Ancillary (enter results) 04/06 07:13 Order name: Urine Test (obtain specimen); Complete Time: 09:40 04/06 07:13 Order name: XRAY Chest (1 view) 04/06 07:13 Order name: EKG; Complete Time: 07:14 04/06 07:13 Order name: Cardiac monitoring; Complete Time: 08:30 04/06 07:13 Order name: EKG - Nurse/Tech; Complete Time: 08:30 04/06 07:13 Order name: IV Saline Lock; Complete Time: 08:30 04/06 07:13 Order name: Labs collected and sent; Complete Time: 08:30 04/06 07:13 Order name: O2 Per Protocol; Complete Time: 08:30 04/06 07:13 Order name: O2 Sat Monitoring; Complete Time: 08:30 04/06 07:13 Order name: CT Stroke Brain w/o Contrast; Complete Time: 08:01 04/06 09:48 Order name: Urine Dipstick-Ancillary [facility] 04/06 09:48 Order name: Urine --Ancillary [facility] 04/06 10:06 Order name: Urine Culture [facility] 04/06 07:13 Order name: Urine Dipstick-Ancillary (obtain specimen); Complete Time: 09:40 kav 04/06 07:13 Order name: Accucheck; Complete Time: 08:49 kav 04/06 07:13 Order name: NPO; Complete Time: 08:39 kav 04/06 07:13 Order name: Stroke Swallow Screen; Complete Time: 08:39 kav 04/06 08:21 Order name: VS Recheck; Complete Time: 08:49 kav Administered Medications: 08:23 Drug: DuoNeb (3:1) (2.5 mg - 0.5 mg) 3 ml {Note: I was in with a trauma pt..} Route: rb1 Nebulizer; 08:43 Follow up: Response: No adverse reaction; Marked relief of symptoms rb1 08:23 Drug: [place] (7.5 mg-325 mg) 1 tabs {Note: I was in with a trauma pt..} Route: PO; rb1 09:00 Follow up: Response: No adverse reaction; Pain is decreased rb1 09:40 Not Given (): hydrALAZINE 10 mg IV at bolus once kav Point of Care Testing: Blood Glucose: 08:37 Blood Glucose: 65 mg/dL; rb1 09:18 Blood Glucose: 113 mg/dL; rb1 Ranges: Critical Glucose Levels:Adult <50 mg/dl or >400 mg/dl <40 mg/dl or >180 mg/dl Disposition: 04/07 10:49 Co-signature as Attending Physician, Thanh Echevarria MD I agree with the assessment and guilherme plan of care. Disposition: 04/06/18 10:18 Discharged to Home. Impression: Unspecified abdominal pain, Hypokalemia, Alcohol abuse with intoxication, Candidiasis of vulva and vagina. - Condition is Stable. - Discharge Instructions: Abdominal Pain, Adult, Potassium Content of Foods, Vaginal Yeast Infection, Adult, Hypokalemia. - Prescriptions for Pepcid 20 mg Oral Tablet - take 1 tablet by ORAL route every 12 hours for 10 days; 20 tablet. Diflucan 150 mg Oral Tablet - take 1 tablet by ORAL route one time for 1 day; 1 tablet. - Medication Reconciliation Form, Thank You Letter, Antibiotic Education form. - Follow up: Nikole Johnston; When: 2 - 3 days; Reason: Recheck today's complaints, Continuance of care, Re-evaluation by your physician. - Problem is new. - Symptoms have improved. Signatures: Dispatcher [employer] EDMS Thanh Echevarria MD MD cha Vern, Katherine, DATABASES COMPUTER CONSULTANT DATABASES COMPUTER CONSULTANT Tati Moran RN RN Mercedes King RN RN Vale Hernandez, OSITO RN rb1 Corrections: (The following items were deleted from the chart) 04/06 07:08 06:50 Onset: The symptoms/episode began/occurred acutely, 6 hour(s) ago, gaston feldman 07:08 06:50 Associated signs and symptoms: Pertinent positives: chest pain, gaston feldman 10:53 10:18 04/06/2018 10:18 Discharged to Home. Impression: Unspecified abdominal pain; ss Hypokalemia; Alcohol abuse with intoxication; Candidiasis of vulva and vagina. Condition is Stable. Discharge Instructions: Abdominal Pain, Adult, Potassium Content of Foods, Hypokalemia. Prescriptions for Pepcid 20 mg Oral Tablet - take 1 tablet by ORAL route every 12 hours for 10 days; 20 tablet. and Forms are Medication Reconciliation Form, Thank You Letter, Antibiotic Education, Prescription Opioid Use. Follow up: Nikole Johnston; When: 2 - 3 days; Reason: Recheck today's complaints, Continuance of care, Re-evaluation by your physician. Problem is new. Symptoms have improved. kav
[2018-04-06 10:59] VITALS: TEMP 97.2
[2018-04-06 11:02] VITALS: BP 139/79; O2SAT 95
--- NOTE | 2018-04-06 11:59 | RAD REPORT ---
EXAM DESCRIPTION: RAD - Chest Single View - 04/06/2018 8:01 am CLINICAL HISTORY: Left-sided chest pain COMPARISON: February 2018 TECHNIQUE: AP portable chest image was obtained 0753 hours . FINDINGS: Lungs are clear. Heart and vasculature are normal. No measurable pleural effusion and no p neumothorax. No gross bony abnormality seen. No acute aortic findings suspected. IMPRESSION: No acute cardiopulmonary process. No significant interval change.
--- NOTE | 2018-04-06 12:10 | EKG ---
Test Date: 2018-04-06 Test Time: 09:21:32 Ships Equipment Engineer: [facility] MEASUREMENT RESULTS: Intervals: Rate: 65 GA: 142 QRSD: 82 QT: 382 QTc: 397 [place]: P: 63 GA: 142 QRS: 62 T: -11 INTERPRETIVE STATEMENTS: Sinus rhythm with marked sinus arrhythmia Nonspecific T wave abnormality Abnormal ECG Compared to ECG 02/28/2018 01:31:21 T-wave abnormality now present Electronically Signed On 04-06-18 12:09:44 CDT by Darrin Jackson
== END 2018-04-06 10:53 | disposition home or self-care (01) ==
LOC: ER 06:46
DX: R10.9 Unspecified abdominal pain (principal); E87.6 Hypokalemia; F10.120 Alcohol abuse with intoxication, uncomplicated; B37.3 Candidiasis of vulva and vagina; I11.0 Hypertensive heart disease with heart failure; I50.9 Heart failure, unspecified; J44.9 Chronic obstructive pulmonary disease, unspecified; E11.9 Type 2 diabetes mellitus without complications; Z79.4 Long term (current) use of insulin; Z88.8 Allergy status to other drugs, medicaments and biological substances
CPT/HCPCS: 36415; 70450; 71045; 80048; 80076; 81025; 82550; 82553; 82962; 83735; 83880; 84484; 85025; 85610; 85730; 87086; 87088; 93005; J0360; J7030; 81003; 81015; 94640; 99285

== ENCOUNTER 2018-12-18 08:51 | Observation (INO) | payer OTHER ==
[2018-12-18 09:20] LABS: Absolute Lymphocytes (CBC) 1.7 K/uL (0.7-4.9); Absolute Monocytes 0.5 K/uL (0.1-1.3); Absolute Neutrophil 7.4 K/uL (1.8-8.0); Basophils % 0.3 % (0-1.3); Eosinophils % 0.8 % (0-4.4); Hematocrit 43.8 % (36.0-45.0); Lymphocytes % 17.7 % (15.3-44.8); Monocytes % 5.3 % (3.3-12.3); RBC Red Blood Cell Count 4.75 M/uL (3.86-4.86)
[2018-12-18] MEDS ORDERED: LEVALBUTEROL 1.25 MG/3 ML NEB ONE (09:20)
[2018-12-18] MEDS ORDERED: METHYLPREDNISOLONE 125 MG INJ ONE (09:20)
[2018-12-18 09:40] LABS: BUN Blood Urea Nitrogen 12 mg/dL (7-18); Bicarbonate 29 mmol/L (21-32); Glucose Level 83 mg/dL (74-106); NT PRO-BNP 16 pg/mL (<125); Potassium 3.9 mmol/L (3.5-5.1); Sodium Level 143 mmol/L (136-145); Troponin (Emerg Dept Use Only) < 0.02 ng/mL (0.0-0.045)
--- NOTE | 2018-12-18 10:04 | RAD REPORT ---
EXAM DESCRIPTION: RAD - Chest Single View - 12/18/2018 9:49 am CLINICAL HISTORY: Chest pain;Dyspnea Chest pain. COMPARISON: Chest Single View dated 04/06/2018; Chest Single View dated 02/28/2018; Chest Single View dated 01/21/2017; Chest Single View dated 01/20/2017 FINDINGS: Portable technique limits examination quality. Mild linear opacity is present in the right lung base probably representing atelectasis or developing pneumonia. The lungs are otherwise clear. The heart is normal in size. No displaced fractures.
[2018-12-18] MEDS ORDERED: AZITHROMYCIN IV 500 MG in NA CHLORIDE 0.9% 250 ML IVPB ONE (10:30)
--- NOTE | 2018-12-18 10:37 | EDPHYS ---
Physician Documentation [facility] Name: Martha Riojas Age: 53 yrs Sex: Female : 1965 Arrival Date: 12/18/2018 Time: 08:57 Bed 8 Private MD: ED Physician Jeff Bobo HPI: 12/18 09:05 This 53 yrs old Black Female presents to ER via Unassigned with complaints of Breathing rn Difficulty. 09:05 The patient has shortness of breath at rest, with light activity. Onset: The rn symptoms/episode began/occurred 3 day(s) ago. Duration: The symptoms are intermittent. The patient's shortness of breath is aggravated by exertion, light activity, supine position, talking, walking. Associated signs and symptoms: Pertinent positives: chest pain, non-productive cough, Pertinent negatives: fever, hemoptysis. Severity of symptoms: At their worst the symptoms were moderate in the emergency department the symptoms are unchanged. The patient has experienced similar episodes in the past. The patient has not recently seen a physician. 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 [facility] N/A - iw Historical: - Allergies: 09:28 Prednisone; I'M ALLERGIC TO IT BUT I HAVE TO TAKE IT FROM TIME TO TIME.; iw - Home Meds: 09:41 metoprolol tartrate 100 mg oral tab once daily [Active]; amlodipine 5 mg tab 1 tab once iw daily [Active]; clonidine HCl 0.3 mg Oral tab 1 tab 2 times per day [Active]; carvedilol 6.25 mg oral tab 1 tab 2 times per day [Active]; furosemide 40 mg Oral tab 1 tab once daily [Active]; potassium chloride 10 mEq Oral TbER 1 tab once daily [Active]; - PMHx: 09:28 CHF; CVA; COPD; Diabetes - IDDM; Hypertension; Myocardial infarction; iw - PSHx: :28 ; Tubal ligation; iw - Immunization history:: Adult Immunizations up to date. - Social history:: Smoking status: Patient/guardian denies using tobacco. - Family history:: not pertinent. - Ebola Screening: : Patient negative for fever greater than or equal to 101.5 degrees Fahrenheit, and additional compatible Ebola Virus Disease symptoms Patient denies exposure to infectious person Patient denies travel to an Ebola-affected area in the 21 days before illness onset No symptoms or risks identified at this time. - Hospitalizations: : No recent hospitalization is reported. ROS: 09:05 Constitutional: Negative for fever, chills, and weight loss, Eyes: Negative for injury, rn pain, redness, and discharge, Neck: Negative for injury, pain, and swelling, Cardiovascular: + chest pain Respiratory: + cough and sob, + wheezing Abdomen/GI: Negative for abdominal pain, nausea, vomiting, diarrhea, and constipation, MS/Extremity: Negative for injury and deformity, Skin: Negative for injury, rash, and discoloration, Neuro: Negative for headache, numbness, tingling, and seizure. Exam: 09:05 Constitutional: This is a well developed, well nourished patient who is awake, alert, rn + mild tachypnea Head/Face: Normocephalic, atraumatic. Eyes: Pupils equal round and reactive to light, extra-ocular motions intact. Lids and lashes normal. Conjunctiva and sclera are non-icteric and not injected. Cornea within normal limits. Periorbital areas with no swelling, redness, or edema. ENT: no oral swelling, no stridor, + dry MM Cardiovascular: Regular, no murmur, no pulse deficits Respiratory: + mild tachypnea with coarse bilateral breath sounds and exp wheezing Abdomen/GI: soft, non-tender MS/ Extremity: Pulses equal, no cyanosis. Neurovascular intact. Full, normal range of motion. Equal circumference. Neuro: Awake and alert, GCS 15, oriented to person, place, time, and situation. 09:55 ECG was reviewed by the Attending Physician. rn Vital Signs: 09:05 BP 167 / 85; Pulse 78; Resp 20 S; Pulse Ox 90% on R/A; Pain 8/10; iw 09:20 BP 124 / 81; Pulse 72; Resp 20; Temp 98.1(TE); Pulse Ox 94% on R/A; Pain 8/10; iw 09:30 Pulse Ox 100% on Nebulizer Mask; iw 09:41 BP 121 / 74; Pulse 72; Resp 18 S; Pulse Ox 100% on Nebulizer Mask; iw 11:13 BP 129 / 63; Pulse 83; Resp 18 S; Pulse Ox 97% on 4 lpm NC; iw MDM: 08:57 Patient medically screened. rn 10:34 Differential diagnosis: Bronchitis Chronic Obstructive Pulmonary Disease Myocardial rn Infarction pneumonia, Pneumothorax pulmonary edema, reactive airway disease. Data reviewed: vital signs, nurses notes, lab test result(s), EKG, radiologic studies, plain films, and as a result, I will admit patient. Counseling: I had a detailed discussion with the patient and/or guardian regarding: the historical points, exam findings, and any diagnostic results supporting the discharge/admit diagnosis, lab results, radiology results, the need for further work-up and treatment in the hospital. Response to treatment: the patient's symptoms have mildly improved after treatment, and as a result, I will admit patient. Admission orders: after a detailed discussion of the patient's condition and case, the admit orders are written by me. ED course: Pt with COPD exacerbation, hypoxemia, dips down to 83% on 2L NC, will admit given still wheezing and dyspnea. . 12/18 08:58 Order name: Blood Culture Adult (2) rn 12/18 08:58 Order name: BMP rn 12/18 08:58 Order name: CBC with Diff; Complete Time: 10:10 rn 12/18 08:58 Order name: NT PRO-BNP; Complete Time: 10:10 rn 12/18 08:58 Order name: Troponin (emerg Dept Use Only); Complete Time: 10:10 rn 12/18 08:58 Order name: Procalcitonin; Complete Time: 10:10 rn 12/18 08:58 Order name: XRAY CXR (1 view); Complete Time: 10:10 rn 12/18 08:58 Order name: EKG; Complete Time: 08:58 rn 12/18 08:58 Order name: Blood Culture [facility] 12/18 08:58 Order name: Basic Metabolic Panel; Complete Time: 10:10 [facility] 12/18 08:58 Order name: Cardiac monitoring; Complete Time: 09:45 rn 12/18 08:58 Order name: EKG - Nurse/Tech; Complete Time: 09:46 rn 12/18 08:58 Order name: IV Saline Lock; Complete Time: 09:17 rn 12/18 08:58 Order name: Labs collected and sent; Complete Time: 09:17 rn 12/18 08:58 Order name: O2 Per Protocol; Complete Time: 09:17 rn 12/18 08:58 Order name: O2 Sat Monitoring; Complete Time: 09:17 rn EC:55 Rate is 69 beats/min. Rhythm is regular. QRS [place] is Normal. IN interval is normal. QRS rn interval is normal. QT interval is normal. No Q waves. T waves are Normal. No ST changes noted. Clinical impression: NSR w/ Non-specific ST/T Changes. Interpreted by me. Reviewed by me. Administered Medications: 09:15 Drug: SOLU-Medrol 125 mg Route: IVP; Site: right antecubital; sg 10:30 Follow up: Response: No adverse reaction iw 09:15 Drug: Xopenex (3) 1.25 mg Route: Inhalation; sg 10:47 Drug: AZITHromycin 500 mg Route: IVPB; Infused Over: 1 hrs; Site: right antecubital; sg 12:00 Follow up: IV Status: Completed infusion iw 11:02 Drug: Phenergan 12.5 mg Route: IVP; Site: right antecubital; sg 12:00 Follow up: Response: No adverse reaction iw Disposition: 12/18/18 10:35 Hospitalization ordered by Snow Cheek for Inpatient Admission. Preliminary diagnosis are Chronic obstructive pulmonary disease with (acute) exacerbation, Hypoxemia. - Bed requested for Telemetry/MedSurg (Inpatient). - Status is Inpatient Admission. iw - Condition is Stable. - Problem is an acute exacerbation. - Symptoms have improved. UTI on Admission? No Signatures: Dispatcher [employer] EDMS Tosha Puckett RN RN Sherif Vogt RN RN Yareli Castaneda RN RN Jeff Bobo MD MD return to vendor: (The following items were deleted from the chart) 11:46 10:35 Hospitalization Ordered by Snow Cheek MD for Inpatient Admission. Preliminary diagnosis is Chronic obstructive pulmonary disease with (acute) exacerbation; Hypoxemia. Bed requested for Telemetry/MedSurg (Inpatient). Status is Inpatient Admission. Condition is Stable. Problem is an acute exacerbation. Symptoms have improved. UTI on Admission? No. rn 13:04 11:46 12/18/2018 10:35 Hospitalization Ordered by Snow Cheek MD for Inpatient iw Admission. Preliminary diagnosis is Chronic obstructive pulmonary disease with (acute) exacerbation; Hypoxemia. Bed requested for Telemetry/MedSurg (Inpatient). Status is Inpatient Admission. Condition is Stable. Problem is an acute exacerbation. Symptoms have improved. UTI on Admission? No. dw
--- NOTE | 2018-12-18 10:37 | ER ---
Nurse's Notes [facility] Name: Martha Riojas Age: 53 yrs Sex: Female : 1965 Arrival Date: 12/18/2018 Time: 08:57 Bed 8 Private MD: Diagnosis: Chronic obstructive pulmonary disease with (acute) exacerbation;Hypoxemia Presentation: 12/18 09:05 Presenting complaint: Patient states: difficulty breathing X 2 days, worse this iw morning, also had chest pain this morning, 8/10, midsternal, hx of COPD. Transition of care: patient was not received from another setting of care. Onset of symptoms was December 16, 2018. Risk Assessment: Do you want to hurt yourself or someone else? Patient reports no desire to harm self or others. Initial Sepsis Screen: Does the patient meet any 2 criteria? No. Patient's initial sepsis screen is negative. Does the patient have a suspected source of infection? No. Patient's initial sepsis screen is negative. Care prior to arrival: Medication(s) given: Albuterol Neb Atrovent Neb. 09:05 Method Of Arrival: EMS: [facility] iw 09:05 Acuity: SOL 3 iw Triage Assessment: 09:20 Respiratory: Reports shortness of breath Onset: The symptoms/episode began/occurred iw yesterday, the patient has moderate shortness of breath. 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 - iw Historical: - Allergies: 09:28 Prednisone; I'M ALLERGIC TO IT BUT I HAVE TO TAKE IT FROM TIME TO TIME.; iw - Home Meds: 09:41 metoprolol tartrate 100 mg oral tab once daily [Active]; amlodipine 5 mg tab 1 tab once iw daily [Active]; clonidine HCl 0.3 mg Oral tab 1 tab 2 times per day [Active]; carvedilol 6.25 mg oral tab 1 tab 2 times per day [Active]; furosemide 40 mg Oral tab 1 tab once daily [Active]; potassium chloride 10 mEq Oral TbER 1 tab once daily [Active]; - PMHx: 09:28 CHF; CVA; COPD; Diabetes - IDDM; Hypertension; Myocardial infarction; iw - PSHx: :28 ; Tubal ligation; iw - Immunization history:: Adult Immunizations up to date. - Social history:: Smoking status: Patient/guardian denies using tobacco. - Family history:: not pertinent. - Ebola Screening: : Patient negative for fever greater than or equal to 101.5 degrees Fahrenheit, and additional compatible Ebola Virus Disease symptoms Patient denies exposure to infectious person Patient denies travel to an Ebola-affected area in the 21 days before illness onset No symptoms or risks identified at this time. - Hospitalizations: : No recent hospitalization is reported. Screenin:15 Abuse screen: Denies threats or abuse. Denies injuries from another. Nutritional iw screening: No deficits noted. Tuberculosis screening: No symptoms or risk factors identified. Fall Risk IV access (20 points). Assessment: 09:20 General: Appears uncomfortable, Behavior is calm, cooperative. General: Reports fatigue iw for Denies fever. Pain: Complains of pain in mid-sternal area Pain currently is 8 out of 10 on a pain scale. Neuro: Level of Consciousness is awake, alert, obeys commands, Oriented to person, place, time, situation, Moves all extremities. Cardiovascular: Reports chest pain, shortness of breath, Heart tones S1 S2 present Patient's skin is warm and dry. Rhythm is regular. Respiratory: Airway is patent Respiratory effort is even, unlabored, Respiratory pattern is regular, Breath sounds are diminished bilaterally. Breath sounds with rales in right upper lobe, left upper lobe, right middle lobe, left posterior upper lobe, right posterior upper lobe and right posterior middle lobe. Derm: Skin is intact, is healthy with good turgor. Musculoskeletal: Range of motion: intact in all extremities. 10:14 Reassessment: Patient appears in no apparent distress at this time. Patient and/or iw family updated on plan of care and expected duration. Pain level reassessed. Patient is alert, oriented x 3, equal unlabored respirations, skin warm/dry/pink. 10:53 Reassessment: Patient appears in no apparent distress at this time. pt c/o midsternal iw chest pain 9/10, pt requesting pain medicine, and water, pt also feeling very nauseous and dry heaving. Vital Signs: 09:05 BP 167 / 85; Pulse 78; Resp 20 S; Pulse Ox 90% on R/A; Pain 8/10; iw 09:20 BP 124 / 81; Pulse 72; Resp 20; Temp 98.1(TE); Pulse Ox 94% on R/A; Pain 8/10; iw 09:30 Pulse Ox 100% on Nebulizer Mask; iw 09:41 BP 121 / 74; Pulse 72; Resp 18 S; Pulse Ox 100% on Nebulizer Mask; iw 11:13 BP 129 / 63; Pulse 83; Resp 18 S; Pulse Ox 97% on 4 lpm NC; iw ED Course: 08:57 Patient arrived in ED. iw 08:57 Jeff Bobo MD is Attending Physician. rn 09:10 Initial lab(s) drawn, by ak, sent to lab. Inserted saline lock: 20 gauge in right iw antecubital area, using aseptic technique. Blood collected. 09:20 Arm band placed on. iw 09:26 Triage completed. iw 09:30 X-ray completed. Portable x-ray completed in exam room. Patient tolerated procedure jb2 well. 09:30 Patient has correct armband on for positive identification. Bed in low position. Call sg light in reach. Side rails up X2. shelter monitor on. Pulse ox on. NIBP on. 09:31 XRAY CXR (1 view) In Process Unspecified. EDMS 09:37 Yareli Castaneda, RN is Primary Nurse. iw 09:49 EKG done, by career technical education teacher. reviewed by Jeff Bobo MD. at1 10:35 Snow Cheek MD is Hospitalizing Provider. rn 12:36 No provider procedures requiring assistance completed. Patient admitted, IV remains in iw place. Administered Medications: 09:15 Drug: SOLU-Medrol 125 mg Route: IVP; Site: right antecubital; sg 10:30 Follow up: Response: No adverse reaction iw 09:15 Drug: Xopenex (3) 1.25 mg Route: Inhalation; sg 10:47 Drug: AZITHromycin 500 mg Route: IVPB; Infused Over: 1 hrs; Site: right antecubital; sg 12:00 Follow up: IV Status: Completed infusion iw 11:02 Drug: Phenergan 12.5 mg Route: IVP; Site: right antecubital; sg 12:00 Follow up: Response: No adverse reaction iw Outcome: 10:35 Decision to Hospitalize by Provider. rn 12:17 Admitted to Tele accompanied by tech, via wheelchair, with chart, Report called to gordon Olivarez RN 12:17 Condition: stable 12:17 Instructed on the need for admit, safety practices, Demonstrated understanding of instructions. 13:04 Patient left the ED. iw Signatures: Dispatcher [employer] EDMS Sherif Vogt RN RN sg Buechter, Jesse jb2 Williams, Irene, RN RN iw Nieto, Roman, MD MD rn Gonzales, Amanda, inspection supervisor EKG Tat1 Corrections: (The following items were deleted from the chart) 11:02 10:53 Reassessment: Patient appears in no apparent distress at this time. pt c/o iw midsternal chest pain 05/19, pt requesting pain medicine, and water iw
[2018-12-18] MEDS ORDERED: PROMETHAZINE 25 MG/ML VIAL ONE (11:09)
[2018-12-18] MEDS ORDERED: ALBUTEROL 2.5 MG/3 ML NEB SOL NEB PRN ×2 (12:00→19:00)
[2018-12-18] MEDS ORDERED: ONDANSETRON 4 MG/2 ML VIAL IV PRN (13:13)
[2018-12-18] MEDS: IPRATROPIUM BROM 0.5MG/2.5ML NEB SCH ×2 (13:41→20:00)
[2018-12-18] MEDS ORDERED: ACETAMINOPHEN 500 MG TAB PO PRN (15:39)
--- NOTE | 2018-12-18 17:15 | EKG ---
Test Date: 2018-12-18 Test Time: 09:34:26 Medical Delivery Technician: ELE MEASUREMENT RESULTS: Intervals: Rate: 69 MO: 132 QRSD: 84 QT: 376 QTc: 402 [place]: P: 65 MO: 132 QRS: 68 T: 14 INTERPRETIVE STATEMENTS: Normal sinus rhythm Nonspecific T wave abnormality Abnormal ECG Compared to ECG 04/06/2018 09:21:32 Sinus arrhythmia no longer present T-wave abnormality still present Electronically Signed On 12-18-18 17:14:41 CDT by Darrin Jackson
--- NOTE | 2018-12-18 18:09 | P.HP ---
Certification for Inpatient Patient admitted to: Observation With expected LOS: <2 Midnights Patient will require the following post-hospital care: None Practitioner: I am a practitioner with admitting privileges, knowledge of patient current condition, hospital course, and medical plan of care. Services: Services provided to patient in accordance with Admission requirements found in Title 42 Section 412.3 of the Code of Federal Regulations Patient History Date of Service: 12/18/18 Primary Care Provider: Dr Johnston Reason for admission: SOB History of Present Illness: This is a 53-year-old female patient with underlying history of COPD, who sees Dr. Johnston, came into the emergency room with complaints of shortness of breath, cough, chest congestion that started 2 to 3 days ago and continued to get worse , so she came into the emergency room with this. Patient States she has inhalers and Nebs treatment at home which she tired however it did not help her. The patient says her chest discomfort has been intermittent and sometime it goes to right and sometime it goes to left arm. No aggravating or relieving factor. She coughs up some mucus from time to time. Denies any fever, chills, N /V or abd pain. Denies any sick contact and states she is complaint with her medication. In the ER pt had Labs and imaging Done. She was found to have COPD exacerbation and thus admitted for further care. Allergies prednisone Allergy (Verified 04/29/17 09:06) Hives/Rash steroids Allergy (Uncoded 04/29/17 09:06) Hives/Rash Home Medications: Albuterol Neb [Proventil 0.083% Neb Soln] 2.5 mg IH Q4H PRN 12/18/18 Amlodipine [Norvasc] 5 mg PO BID 12/18/18 Amoxicillin [Amoxil] 875 mg PO DAILY 12/18/18 Carvedilol [Coreg] 6.25 mg PO BID 12/18/18 Clonidine HCl [Catapres] 0.3 mg PO DAILY 12/18/18 Furosemide [Lasix] 40 mg PO SEECOM 12/18/18 Levalbuterol HCl [Xopenex] 0.63 mg IH Q4H PRN 12/18/18 Metoprolol Tartrate [Lopressor] 100 mg PO DAILY 12/18/18 Potassium Chloride [Klor-Con M10] 10 meq PO DAILY 12/18/18 - Past Medical/Surgical History Has patient received pneumonia vaccine in the past: Yes Diabetic: Yes -: Diastolic dysfunction -: HTN -: Diabetes mellitus type 2 -: COPD -: Previous [place] -: Previous CVA -: Hyperlipidemia -: Asthma -: Right arm cyst removed -: Back surgery -: Hernia repair Psychosocial/ Personal History: She is a , has 5 children. She does not work. - Family History Mother -: Heart disease, Lung disease Father -: Heart disease - Social History Smoking Status: Never smoker Alcohol use: No CD- Drugs: No Caffeine use: No Place of Residence: Home Review of Systems 10-point ROS is otherwise unremarkable Physical Examination - Vital Signs Temperature: 97.6 F Blood Pressure: 120/69 Pulse: 77 Respirations: 16 Pulse Ox (%): 96 - Physical Exam General: Alert, In no apparent distress HEENT: Atraumatic, PERRLA, Mucous membr. moist/pink, EOMI, Sclerae nonicteric Neck: Supple, 2+ carotid pulse no bruit, No LAD, Without JVD or thyroid abnormality Respiratory: Normal air movement, Expiratory wheezes, Inspiratory wheezes Cardiovascular: Regular rate/rhythm, Normal S1 S2 Gastrointestinal: Normal bowel sounds, No tenderness Musculoskeletal: No tenderness Integumentary: No rashes Neurological: Normal gait, Normal speech, Normal strength at 5/5 x4 extr, Normal tone, Normal affect Lymphatics: No axilla or inguinal lymphadenopathy - Studies Laboratory Data (last 24 hrs) 12/18/18 09:10: WBC 9.8, Hgb 14.1, Hct 43.8, Plt Count 239 12/18/18 09:10: Sodium 143, Potassium 3.9, BUN 12, Creatinine 0.93, Glucose 83 Assessment and Plan - Problems (Diagnosis) (1) COPD exacerbation Onset Date: 05/15/16 Current Visit: No Status: Acute Plan: COPD exacerbation most likely 2.2 to Seasonal Allergy vs Viral Illness -Duonebs, Steriods and Oxygen -Pulmonology consult. Awaiting reccs (2) CHF (congestive heart failure) Current Visit: No Status: Chronic Qualifiers: Heart failure type: diastolic Heart failure chronicity: chronic Qualified Code(s): I50.32 - Chronic diastolic (congestive) heart failure (3) Coronary artery disease Onset Date: 10/19/16 Current Visit: No Status: Chronic Qualifiers: Coronary Disease-Associated Artery/Lesion type: [place] artery [place] vs. transplanted heart: [place] heart Associated angina: without angina Qualified Code(s): I25.10 - Atherosclerotic heart disease of [place] coronary artery without angina pectoris (4) Diabetes mellitus, type II Current Visit: No Status: Chronic Qualifiers: Diabetes mellitus fdc insulin use: without salvage determiner use Diabetes mellitus complication status: without complication Qualified Code(s): E11.9 - Type 2 diabetes mellitus without complications (5) Hyperlipidemia Onset Date: 10/19/16 Current Visit: No Status: Chronic Qualifiers: Hyperlipidemia type: mixed hyperlipidemia Qualified Code(s): E78.2 - Mixed hyperlipidemia (6) Hypertension Current Visit: No Status: Chronic Qualifiers: Hypertension type: essential hypertension - Plan Admit to med surg for COPD exacerbation. Treatment with Duonebs, Steriods and pulmonology consult. Discharge Plan: Home Plan to discharge in: 24 Hours - Advance Directives Does patient have a Living Will: No Does patient have a Durable POA for Healthcare: No - Code Status/Comfort Care Code Status Assessed: Yes Critical Care: No
[2018-12-18] MEDS: AMLODIPINE 5 MG TAB PO SCH (21:31)
[2018-12-18] MEDS: predniSONE 10 MG TAB PO SCH (21:32)
[2018-12-18] MEDS: CARVEDILOL 6.25 MG TAB PO SCH (21:32)
[2018-12-19] MEDS: IPRATROPIUM BROM 0.5MG/2.5ML NEB SCH ×4 (02:00→19:43)
[2018-12-19 05:30] LABS: Urine Appearance CLEAR; Urine Bilirubin NEGATIVE (NEG); Urine Blood NEGATIVE (NEG); Urine Color YELLOW; Urine Glucose 2+ (NEG); Urine Protein NEGATIVE (NEG)
[2018-12-19 05:34] LABS: Urine Microscopic Reflex ORDER UMIC
[2018-12-19 06:06] LABS: Urine Bacteria 20-50 /HPF (<20); Urine Culture Reflex Order REFLEXED; Urine RBC NONE SEEN /HPF (NONE SEEN); Urine Trichomonas PRESENT (NONE SEEN)
[2018-12-19 06:12] VITALS: BMI 30.8
[2018-12-19 06:16] LABS: Absolute Monocytes 0.5 K/uL (0.1-1.3); Absolute Neutrophil 12.7 K/uL (1.8-8.0); Basophils % 0.1 % (0-1.3); Hematocrit 43.1 % (36.0-45.0); Lymphocytes % 7.1 % (15.3-44.8); MPV 8.3 fL (7.6-11.3); Monocytes % 3.6 % (3.3-12.3); RBC Red Blood Cell Count 4.66 M/uL (3.86-4.86)
[2018-12-19 06:36] LABS: Albumin 3.3 g/dL (3.4-5.0); Bilirubin Total 0.2 mg/dL (0.2-1.0); Potassium 4.8 mmol/L (3.5-5.1); Protein, Total 7.2 g/dL (6.4-8.2)
[2018-12-19 07:01] LABS: Blood Morphology Comment NOT SEEN (NOT SEEN); Platelet Estimate ADEQ; Urine White Blood Cell Casts OK
[2018-12-19] MEDS ORDERED: METOPROLOL TAR 50 MG TAB PO SCH (09:00)
[2018-12-19] MEDS ORDERED: HOME MED 1 EA UNK (Metoprolol Tartrate [Lopressor] 100 MG) PO SCH (09:00)
[2018-12-19] MEDS: predniSONE 10 MG TAB PO SCH (10:11)
[2018-12-19] MEDS: AMLODIPINE 5 MG TAB PO SCH (10:11)
[2018-12-19] MEDS: metroNIDAZOLE 500 MG TABLET PO SCH ×2 (10:11→21:14)
[2018-12-19] MEDS: CARVEDILOL 6.25 MG TAB PO SCH ×2 (10:12→21:00)
[2018-12-19] MEDS: CLONIDINE HCL 0.3 MG TAB PO SCH (10:12)
[2018-12-19] MEDS ORDERED: predniSONE 20 MG TAB PO ONE (11:50)
--- NOTE | 2018-12-19 11:50 | P.CNS ---
Date of Consult: 12/19/18 Primary Care Provider: Dr Blanco Chief Complaint: SOB History of Present Illness: Patient is 53 years of age admitted with worsening dyspnea since last Saturday cough congestion shortness of breath still not feeling better takes bronchodilators at home patient does not smoke denies any fever or chills of dizziness for the past month Allergies prednisone Allergy (Verified 04/29/17 09:06) Hives/Rash steroids Allergy (Uncoded 04/29/17 09:06) Hives/Rash Home Medications: Albuterol Neb [Proventil 0.083% Neb Soln] 2.5 mg IH Q4H PRN 12/18/18 Amlodipine [Norvasc] 5 mg PO BID 12/18/18 Amoxicillin [Amoxil] 875 mg PO DAILY 12/18/18 Carvedilol [Coreg] 6.25 mg PO BID 12/18/18 Clonidine HCl [Catapres] 0.3 mg PO DAILY 12/18/18 Furosemide [Lasix] 40 mg PO SEECOM 12/18/18 Levalbuterol HCl [Xopenex] 0.63 mg IH Q4H PRN 12/18/18 Metoprolol Tartrate [Lopressor] 100 mg PO DAILY 12/18/18 Potassium Chloride [Klor-Con M10] 10 meq PO DAILY 12/18/18 - Past Medical/Surgical History Diabetic: Yes -: Diastolic dysfunction -: HTN -: Diabetes mellitus type 2 -: COPD -: Previous [place] -: Previous CVA -: Hyperlipidemia -: Asthma -: Right arm cyst removed -: Back surgery -: Hernia repair Psychosocial/ Personal History: She is a , has 5 children. She does not work. - Family History Mother Medical History: Heart disease, Lung disease Father Medical History: Heart disease - Social History Smoking Status: Never smoker Alcohol use: No CD- Drugs: No Caffeine use: No Place of Residence: Home Review of Systems 10-point ROS is otherwise unremarkable General: Weakness ENT: Nose Discharge Respiratory: Cough, Shortness of Breath Neurological: As per HPI Physical Examination Temp Pulse Resp BP Pulse Ox 97.6 F 79 18 130/67 100 12/19/18 08:00 12/19/18 10:12 12/19/18 08:00 12/19/18 10:12 12/19/18 08:00 General: Alert, Oriented x3 HEENT: Atraumatic Neck: Supple Respiratory: Expiratory wheezes Cardiovascular: No edema, Regular rate/rhythm, Normal S1 S2 Gastrointestinal: Normal bowel sounds, Soft and benign - Problems (1) Asthma exacerbation Current Visit: No Status: Acute Plan: Patient is 53 years of age admitted with worsening dyspnea for the past 3 days I suspect that she has an exacerbation of burned underlying obstructive airways disease patient has never smoked. She has had exacerbations before but not for long time patient does not take any long-acting bronchodilators at home uses short-acting on a p.r.n. basis also complaining of chronic dizziness patient is still wheezing chest x-ray clear labs unremarkable Qualifiers: Asthma severity: severe (2) Dizziness Current Visit: Yes Status: Acute Plan: Patient has been complaining of significant dizziness for the past month. Metoprolol may be a relative contraindication due to her underlying obstructive airways disease in also. . Stopped Norvasc for now and not sure why she is on Lasix presumed lower extremity edema suggest low-dose spironolactone instead I have also ordered an echocardiogram with Doppler
[2018-12-19] MEDS: ARFORMOTEROL TARTRATE 15 MCG/2 ML VIAL.NEB NEB SCH ×2 (13:47→19:42)
--- NOTE | 2018-12-19 14:14 | P.PN ---
Subjective Date of Service: 12/19/18 Primary Care Provider: Dr Blanco Chief Complaint: SOB Subjective: No C/O voiced, Tolerating diet, Ambulating, Improving, Working w/ PT , Doing well (Denies SOB, CP and Chills) Review of Systems 10-point ROS is otherwise unremarkable Physical Examination - Vital Signs Temperature: 97.6 F Blood Pressure: 110/62 Pulse: 65 Respirations: 18 Pulse Ox (%): 98 - Physical Exam General: Alert, In no apparent distress Respiratory: Normal air movement, Expiratory wheezes, Inspiratory wheezes Cardiovascular: Regular rate/rhythm, Normal S1 S2 Gastrointestinal: Normal bowel sounds, No tenderness Musculoskeletal: No tenderness Integumentary: No rashes Neurological: Normal speech, Normal tone, Normal affect Lymphatics: No axilla or inguinal lymphadenopathy - Studies Medications List Reviewed: Yes Assessment And Plan - Current Problems (Diagnosis) (1) COPD exacerbation Onset Date: 05/15/16 Current Visit: No Status: Acute Plan: COPD exacerbation most likely 2.2 to Seasonal Allergy vs Viral Illness -Duonebs, Steriods and Oxygen -Pulmonology consult. reccs Appreciated (2) CHF (congestive heart failure) Current Visit: No Status: Chronic Qualifiers: Heart failure type: diastolic Heart failure chronicity: chronic Qualified Code(s): I50.32 - Chronic diastolic (congestive) heart failure (3) Coronary artery disease Onset Date: 10/19/16 Current Visit: No Status: Chronic Qualifiers: Coronary Disease-Associated Artery/Lesion type: [place] artery [place] vs. transplanted heart: [place] heart Associated angina: without angina Qualified Code(s): I25.10 - Atherosclerotic heart disease of [place] coronary artery without angina pectoris (4) Diabetes mellitus, type II Current Visit: No Status: Chronic Qualifiers: Diabetes mellitus bed bug exterminator insulin use: without bed bug exterminator use Diabetes mellitus complication status: without complication Qualified Code(s): E11.9 - Type 2 diabetes mellitus without complications (5) Hyperlipidemia Onset Date: 10/19/16 Current Visit: No Status: Chronic Qualifiers: Hyperlipidemia type: mixed hyperlipidemia Qualified Code(s): E78.2 - Mixed hyperlipidemia (6) Hypertension Current Visit: No Status: Chronic Qualifiers: Hypertension type: essential hypertension - Plan Pending Clinical Improvement at this time. Discharge Plan: Home Plan to discharge in: 48 Hours - Code Status/Comfort Care Code Status Assessed: Yes Critical Care: No
[2018-12-19] MEDS ORDERED: FUROSEMIDE 40 MG TABLET PO SCH (17:00)
[2018-12-19] MEDS: predniSONE 20 MG TAB PO SCH (21:14)
[2018-12-20] MEDS: IPRATROPIUM BROM 0.5MG/2.5ML NEB SCH ×2 (01:46→08:23)
[2018-12-20] MEDS ORDERED: MORPHINE 2 MG/ML SYR IV STA (02:02)
[2018-12-20 06:18] LABS: Absolute Lymphocytes (CBC) 1.3 K/uL (0.7-4.9); Absolute Monocytes 0.3 K/uL (0.1-1.3); Absolute Neutrophil 9.2 K/uL (1.8-8.0); Basophils % 0.1 % (0-1.3); Hematocrit 41.9 % (36.0-45.0); Lymphocytes % 12.2 % (15.3-44.8); MPV 8.7 fL (7.6-11.3); Monocytes % 3.1 % (3.3-12.3); RBC Red Blood Cell Count 4.53 M/uL (3.86-4.86)
[2018-12-20 06:29] LABS: Albumin 3.3 g/dL (3.4-5.0); Bilirubin Total 0.2 mg/dL (0.2-1.0); Magnesium 2.4 mg/dL (1.8-2.4); Phosphorus 3.2 mg/dL (2.5-4.9); Potassium 5.1 mmol/L (3.5-5.1)
[2018-12-20] MEDS: ARFORMOTEROL TARTRATE 15 MCG/2 ML VIAL.NEB NEB SCH (08:23)
[2018-12-20 08:58] VITALS: BP 138/77; TEMP 97.7
[2018-12-20] MEDS: metroNIDAZOLE 500 MG TABLET PO SCH (09:16)
[2018-12-20] MEDS: CLONIDINE HCL 0.3 MG TAB PO SCH (09:16)
[2018-12-20] MEDS: predniSONE 20 MG TAB PO SCH (09:17)
[2018-12-20] MEDS: CARVEDILOL 6.25 MG TAB PO SCH (09:17)
--- NOTE | 2018-12-20 09:43 | EKG ---
Test Date: 2018-12-20 Test Time: 02:04:43 Gym Teacher: ARY MEASUREMENT RESULTS: Intervals: Rate: 54 [place]: 134 QRSD: 100 QT: 408 QTc: 386 [place]: P: 60 WA: 134 QRS: 51 T: 45 INTERPRETIVE STATEMENTS: Sinus bradycardia Otherwise normal ECG Compared to ECG 12/18/2018 09:34:26 Sinus rhythm no longer present T-wave abnormality no longer present Electronically Signed On 12-20-18 09:42:49 CDT by Singh Lees
[2018-12-20 10:41] VITALS: O2SAT 98
--- NOTE | 2018-12-20 11:19 | P.PN ---
Subjective Date of Service: 12/20/18 Primary Care Provider: Dr Blanco Chief Complaint: Asthma exacerbation Subjective: Improving (As she is doing better still feels weak patient is still wheezing) Review of Systems General: Weakness Respiratory: Shortness of Breath Physical Examination - Vital Signs Temperature: 97.7 F Blood Pressure: 138/77 Pulse: 54 Respirations: 16 Pulse Ox (%): 98 - Physical Exam General: Alert, Oriented x3 Respiratory: Expiratory wheezes Cardiovascular: No edema, Regular rate/rhythm - Studies Medications List Reviewed: Yes Assessment & Plan - Problems (Diagnosis) (1) Asthma exacerbation Current Visit: No Status: Acute Plan: Patient is 53 years of age admitted with an asthma exacerbation she is doing better still feeling weak patient is to continue with bronchodilators steroids in addition she will need a long-acting bronchodilator with inhaled steroid at home and I have faxed Advair to the pharmacy vital signs are stable patient has home O2 check room air pulse ox blood pressure under control use Lasix p.r.n. Qualifiers: Asthma severity: severe (2) Dizziness Current Visit: Yes Status: Acute Plan: Patient has been complaining of significant dizziness for the past month. Metoprolol may be a relative contraindication due to her underlying obstructive airways disease in also. . Stopped Norvasc for now and not sure why she is on Lasix presumed lower extremity edema suggest low-dose spironolactone instead I have also ordered an echocardiogram with Doppler
--- NOTE | 2018-12-20 14:11 | P.DS ---
Admission Date: 12/18/18 Discharge Date: 12/20/18 Primary Care Provider: Dr Johnston Disposition: ROUTINE DISCHARGE Discharge Condition: GOOD Reason for Admission: Asthma exacerbation - Problems (1) COPD exacerbation Onset Date: 05/15/16 Status: Acute (2) CHF (congestive heart failure) Status: Chronic Qualifiers: Heart failure type: diastolic Heart failure chronicity: chronic Qualified Code(s): I50.32 - Chronic diastolic (congestive) heart failure (3) Coronary artery disease Onset Date: 10/19/16 Status: Chronic Qualifiers: Coronary Disease-Associated Artery/Lesion type: [place] artery [place] vs. transplanted heart: [place] heart Associated angina: without angina Qualified Code(s): I25.10 - Atherosclerotic heart disease of [place] coronary artery without angina pectoris (4) Diabetes mellitus, type II Status: Chronic Qualifiers: Diabetes mellitus chcf insulin use: without chcf use Diabetes mellitus complication status: without complication Qualified Code(s): E11.9 - Type 2 diabetes mellitus without complications (5) Hyperlipidemia Onset Date: 10/19/16 Status: Chronic Qualifiers: Hyperlipidemia type: mixed hyperlipidemia Qualified Code(s): E78.2 - Mixed hyperlipidemia (6) Hypertension Status: Chronic Qualifiers: Hypertension type: essential hypertension Brief History of Present Illness: This is a 53-year-old female patient with underlying history of COPD, who sees Dr. Johnston, came into the emergency room with complaints of shortness of breath, cough, chest congestion that started 2 to 3 days ago and continued to get worse , so she came into the emergency room with this. Patient States she has inhalers and Nebs treatment at home which she tired however it did not help her. The patient says her chest discomfort has been intermittent and sometime it goes to right and sometime it goes to left arm. No aggravating or relieving factor. She coughs up some mucus from time to time. Denies any fever, chills, N /V or abd pain. Denies any sick contact and states she is complaint with her medication. In the ER pt had Labs and imaging Done. She was found to have COPD exacerbation and thus admitted for further care. Hospital Course: Overall during the hospital stay patient remained stable Patient was initially admitted to the hospital for COPD exacerbation. Was started on duo nebs, steroids, oxygenation here in hospital. Patient had marked improvement in her symptoms. Patient also had pulmonology consulted who recommended the patient be placed on Symbicort or Advair. Both of which were sent over to the pharmacy. Patient does have a history of noncompliance at home is states that she has both inhalers and has been using them. However from that she has not filled the meanwhile as well. Patient was educated extensively on medication compliance and then was discharged home under stable condition once she was able to ambulate have adequate intake and was doing well on 2 L of nasal cannula which she uses at home. Patient also had a urine culture done here in the hospital which was positive for trichomoniasis and thus was treated with Flagyl. Patient was educated on getting the partner treated as well. Vital Signs/Physical Exam: Temp Pulse Resp BP Pulse Ox 97.7 F 54 16 138/77 98 12/20/18 11:19 12/20/18 11:19 12/20/18 11:19 12/20/18 11:19 12/20/18 11:19 General: Alert, In no apparent distress HEENT: Atraumatic, PERRLA, EOMI Neck: Supple, JVD not distended Respiratory: Clear to auscultation bilaterally, Normal air movement Cardiovascular: Regular rate/rhythm, Normal S1 S2 Gastrointestinal: Normal bowel sounds, No tenderness Musculoskeletal: No tenderness Integumentary: No rashes Neurological: Normal speech, Normal tone, Normal affect Lymphatics: No axilla or inguinal lymphadenopathy Laboratory Data at Discharge: WBC 10.8 K/uL (4.3-10.9) D 12/20/18 05:48 Hgb 13.7 g/dL (12.0-15.0) 12/20/18 05:48 Hct 41.9 % (36.0-45.0) 12/20/18 05:48 Plt Count 233 K/uL (152-406) 12/20/18 05:48 Sodium 139 mmol/L (136-145) 12/20/18 05:48 Potassium 5.1 mmol/L (3.5-5.1) 12/20/18 05:48 BUN 17 mg/dL (7-18) 12/20/18 05:48 Creatinine 0.93 mg/dL (0.55-1.3) 12/20/18 05:48 Glucose 110 mg/dL (74-106) H 12/20/18 05:48 Phosphorus 3.2 mg/dL (2.5-4.9) 12/20/18 05:48 Magnesium 2.4 mg/dL (1.8-2.4) 12/20/18 05:48 Total Bilirubin 0.2 mg/dL (0.2-1.0) 12/20/18 05:48 AST 7 U/L (15-37) L 12/20/18 05:48 ALT 17 U/L (12-78) 12/20/18 05:48 Alkaline Phosphatase 70 U/L (45-117) 12/20/18 05:48 Home Medications: Albuterol Neb [Proventil 0.083% Neb Soln] 2.5 mg IH Q4H PRN 12/18/18 Carvedilol [Coreg*] 6.25 mg PO BID 12/18/18 Clonidine HCl [Catapres] 0.3 mg PO DAILY 12/18/18 Furosemide [Lasix] 40 mg PO SEECOM 12/18/18 Levalbuterol HCl [Xopenex] 0.63 mg IH Q4H PRN 12/18/18 Metoprolol Tartrate [Lopressor] 100 mg PO DAILY 12/18/18 Potassium Chloride [Klor-Con M10] 10 meq PO DAILY 12/18/18 Amlodipine [Norvasc*] 5 mg PO DAILY #30 tab 12/20/18 Fluticasone/Salmeterol [Advair 250-50 Diskus] 1 each IH BID #1 blst.w.dev Nitroglycerin [Nitrostat] 0.25 mg SL BID PRN 12/20/18 metroNIDAZOLE [Flagyl*] 500 mg PO BID #28 tablet 12/20/18 predniSONE [Prednisone*] 20 mg PO BID #10 tab 12/20/18 New Medications: Amlodipine [Norvasc*] 5 mg PO DAILY #30 tab Fluticasone/Salmeterol [Advair 250-50 Diskus] 1 each IH BID #1 blst.w.dev metroNIDAZOLE [Flagyl*] 500 mg PO BID #28 tablet predniSONE [Prednisone*] 20 mg PO BID #10 tab Patient Discharge Instructions: Patient to follow up with Dr. Hamilton in 2 weeks. Reduce dose of Lasix to 20 mg use it on a p.r.n. basis for a lower extremity edema. Reduce dose of amlodipine to 5 mg once a day Diet: Regular Activity: Ad sean Followup: Luis A Hamilton MD [ACTIVE - CAN ADMIT] - 1 Week (call to schedule appointment)
--- NOTE | 2018-12-22 05:58 | EKG ---
Test Date: 2018-12-20 Test Time: 08:07:19 Mortgage Protection Specialist: LIZY MEASUREMENT RESULTS: Intervals: Rate: 51 CT: 134 QRSD: 92 QT: 420 QTc: 387 [place]: P: 59 CT: 134 QRS: 61 T: 34 INTERPRETIVE STATEMENTS: Sinus bradycardia Otherwise normal ECG Compared to ECG 12/20/2018 02:04:43 No significant changes Electronically Signed On 12-22-18 05:57:51 CDT by Darrin Jackson
--- NOTE | 2018-12-22 08:41 | ECHO ---
HEIGHT: 5 ft 3 in WEIGHT: 174 lb 0 oz DATE OF STUDY: 12/19/[address]: Luis A Hamilton MD 2-DIMENSIONAL: YES M.MODE: YES DOPPLER: YES COLOR FLOW: YES TDS: NO PORTABLE: NO DEFINITY: NO BUBBLE STUDY: NO DIAGNOSIS: SHORTNESS OF BREATH CARDIAC HISTORY: CATHERIZATION: NO SURGERY: NO PROSTHETIC VALVE: NO PACEMAKER: NO MEASUREMENTS (cm) DIASTOLIC (NORMALS) SYSTOLIC (NORMALS) IVSd 1.2 (0.6-1.2) LA Diam 3.0 (1.9-4.0) LVEF 76% LVIDd 4.5 (3.5-5.7) LVIDs 2.5 (2.0-3.5) %FS 45% LVPWd 1.0 (0.6-1.2) Ao Diam 2.6 (2.0-3.7) 2 DIMENSIONAL ASSESSMENT: RIGHT ATRIUM: NORMAL LEFT ATRIUM: NORMAL RIGHT VENTRICLE: NORMAL LEFT VENTRICLE: NORMAL TRICUSPID VALVE: NORMAL MITRAL VALVE: NORMAL PULMONIC VALVE: NORMAL AORTIC VALVE: NORMAL PERICARDIAL EFFUSION: NONE AORTIC ROOT: NORMAL LEFT VENTRICULAR WALL MOTION: NORMAL DOPPLER/COLOR FLOW: MILD TRICUSPID REGURGITATION. COMMENTS: MILD TRICUSPID REGURGITATION. NORMAL LEFT VENTRICULAR SIZE AND FUNCTION. NO WALL MOTION ABNORMALITY. TECHNOLOGIST: Perico BABIN
== END 2018-12-20 11:08 | disposition home or self-care (01) ==
LOC: ER 08:51 → ERHOLD 11:23 → 4TH 12:17
PROVIDERS: ADMIT Family Medicine; ATTEND Family Medicine
DX: J44.1 Chronic obstructive pulmonary disease with (acute) exacerbation (principal); I11.0 Hypertensive heart disease with heart failure; I50.32 Chronic diastolic (congestive) heart failure; I25.10 Atherosclerotic heart disease of native coronary artery without angina pectoris; E11.8 Type 2 diabetes mellitus with unspecified complications; E78.2 Mixed hyperlipidemia; R42 Dizziness and giddiness; N39.0 Urinary tract infection, site not specified; B96.89 Other specified bacterial agents as the cause of diseases classified elsewhere
CPT/HCPCS: 96365; 93005 ×3; 93306; 87040 ×2; 87088; 85025 ×3; 87086; 80048; 36415 ×2; 83735; 84100; 82962 ×9; 84484; 80053 ×2; 84145; 83880; 71045; 94640; 96375; 99285; J2550; J0456; J2270; J7605 ×3; J2930; J2405; G0378 ×2; 81003; 81015; J7512

== ENCOUNTER 2019-01-16 10:32 | Emergency (ER) | payer OTHER ==
[2019-01-16] MEDS ORDERED: PROMETHAZINE 25 MG/ML VIAL ONE (11:05)
[2019-01-16 11:12] LABS: Absolute Lymphocytes (CBC) 0.4 K/uL (0.7-4.9); Absolute Monocytes 0.5 K/uL (0.1-1.3); Absolute Neutrophil 2.6 K/uL (1.8-8.0); Basophils % 0.4 % (0-1.3); Eosinophils % 0.1 % (0-4.4); Hematocrit 41.8 % (36.0-45.0); Lymphocytes % 11.7 % (15.3-44.8); MPV 8.5 fL (7.6-11.3); Monocytes % 13.8 % (3.3-12.3); RBC Red Blood Cell Count 4.51 M/uL (3.86-4.86)
[2019-01-16 11:17] LABS: Protime INR 1.08
[2019-01-16 11:30] LABS: ALT/SGPT 20 U/L (12-78); AST/SGOT 17 U/L (15-37); Albumin 3.4 g/dL (3.4-5.0); Alkaline Phosphatase 63 U/L (45-117); BUN Blood Urea Nitrogen 7 mg/dL (7-18); Bicarbonate 28 mmol/L (21-32); Bilirubin Direct < 0.1 mg/dL (0-0.2); Bilirubin Total 0.2 mg/dL (0.2-1.0); Glucose Level 79 mg/dL (74-106); Magnesium 2.1 mg/dL (1.8-2.4); NT PRO-BNP 88 pg/mL (<125); Potassium 4.1 mmol/L (3.5-5.1); Protein, Total 7.1 g/dL (6.4-8.2); Sodium Level 141 mmol/L (136-145); Troponin (Emerg Dept Use Only) < 0.02 ng/mL (0.0-0.045)
--- NOTE | 2019-01-16 11:31 | RAD REPORT ---
EXAM DESCRIPTION: CT - Head Brain Wo Cont - 01/16/2019 11:24 am CLINICAL HISTORY: Dizziness;Mental status change Drowsiness, headache COMPARISON: Ct Stroke Brain Wo Cont dated 04/06/2018; MRA Head Wo Cont dated 04/09/2018; Brain Wo Cont dated 04/09/2018 TECHNIQUE: All CT scans are performed using dose optimization technique as appropriate and may inclu de automated exposure control or mA/KV adjustment according to patient size. FINDINGS: No intracranial hemorrhage, hydrocephalus or extra-axial fluid collection.Mild subcortical areas of diminished density in the periventricular region is unchanged.No areas of brain edema or ev idence of midline shift. The paranasal sinuses and mastoids are clear. The calvarium is intact. IMPRESSION: No acute intracranial abnormality.
--- NOTE | 2019-01-16 11:34 | RAD REPORT ---
EXAM DESCRIPTION: CT - Chest For Pe Angio - 01/16/2019 11:24 am CLINICAL HISTORY: Chest pain. Chest pain;SOB COMPARISON: Chest For Pe Angio dated 02/28/2018 TECHNIQUE: CT angiogram of the pulmonary arteries was performed with MIP. All CT scans are performed using dose optimization technique as appropriate and may include automated exposure control or mA/KV adjustment according to patient size. FINDINGS: No evidence of pulmonary thromboembolism. No acute aortic finding demonstrated. Mild linear opacities are present in the posterior right base likely representing atelectasis. No foc al pulmonary infiltrate seen. No significant pericardial or pleural fluid. No concerning bony finding. Small partially visualized mass is seen in the medial left breast measuring 23 mm. Follow-up nonemerg ent mammography recommended. IMPRESSION: No evidence of pulmonary thromboembolism. 23 mm soft tissue mass in the medial inferior left breast. Followup nonemergent mammography is recomm ended.
[2019-01-16] MEDS ORDERED: NA CHLORIDE 0.9% 500 ML ONE (11:48)
[2019-01-16] MEDS ORDERED: IBUPROFEN 200 MG TAB PO ONE (11:58)
[2019-01-16] MEDS ORDERED: ALBUTEROL 2.5 MG/3 ML NEB SOL ONE (12:23)
[2019-01-16] MEDS ORDERED: FENTANYL CITR 100 MCG/2 ML ONE (12:48)
[2019-01-16] MEDS ORDERED: DIAZEPAM 10 MG/2 ML INJ SYRINGE ONE (14:03)
[2019-01-16 14:37] LABS: Urine Blood TRACE (NEG); Urine Glucose NEGATIVE (NEG); Urine Protein NEGATIVE (NEG)
--- NOTE | 2019-01-16 14:42 | EKG ---
Test Date: 2019-01-16 Test Time: 10:41:44 Manager Of Sustainability: SARAH MEASUREMENT RESULTS: Intervals: Rate: 85 MD: 144 QRSD: 80 QT: 336 QTc: 399 [place]: P: 78 MD: 144 QRS: 73 T: 64 INTERPRETIVE STATEMENTS: Normal sinus rhythm Normal ECG Compared to ECG 12/20/2018 08:07:19 Sinus bradycardia no longer present Electronically Signed On 01-16-19 14:40:53 CDT by Singh Lees
[2019-01-16 14:59] LABS: Urine Bacteria <20 /HPF (<20); Urine Culture Reflex Order NOT NEEDED; Urine RBC <5 /HPF (NONE SEEN)
--- NOTE | 2019-01-16 15:17 | ER ---
Nurse's Notes [facility] Name: Martha Riojas Age: 53 yrs Sex: Female : 1965 Arrival Date: 01/16/2019 Time: 10:35 Bed 24 Private MD: Diagnosis: Chronic obstructive pulmonary disease with (acute) exacerbation;Dehydration Presentation: 01/16 10:37 Presenting complaint: EMS states: pt c/o SOB, dizziness, headache, cough, chest pain iw since last night, vomited this morning. Transition of care: patient was not received from another setting of care. Onset of symptoms was January 15, 2019. Risk Assessment: Do you want to hurt yourself or someone else? Patient reports no desire to harm self or others. Initial Sepsis Screen: Does the patient meet any 2 criteria? No. Patient's initial sepsis screen is negative. Does the patient have a suspected source of infection? No. Patient's initial sepsis screen is negative. Care prior to arrival: Medication(s) given: Normal saline infusion, 500 mL, zofran 4 mg, IV initiated. 20 GA, in the right antecubital area, Glucose check: 107 Oxygen administered. via nasal cannula. 10:37 Method Of Arrival: EMS: [facility] iw 10:37 Acuity: SOL 2 iw Triage Assessment: 11:30 Respiratory: the patient has moderate shortness of breath. iw 15:00 General: Appears in no apparent distress. Behavior is calm. Respiratory: Reports. 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 N/A - Irregular menses ca1 Historical: - Allergies: 10:41 Prednisone; I'M ALLERGIC TO IT BUT I HAVE TO TAKE IT FROM TIME TO TIME.; iw - Home Meds: 11:09 amlodipine 5 mg tab 1 tab once daily [Active]; carvedilol 6.25 mg Oral tab 1 tab 2 iw times per day [Active]; metoprolol tartrate 100 mg Oral tab 2 times per day [Active]; clopidogrel 75 mg oral tab 1 tab once daily [Active]; Nitrostat 0.4 mg SL subl 1 tab every 5 minutes [Active]; Advair Diskus Inhl 2 times per day [Active]; ProAir HFA 90 mcg/actuation inhalation HFAA every 4-6 hours [Active]; prednisone 20 mg Oral tab once daily [Active]; metolazone 5 mg oral tab 1 tab once daily [Active]; aspirin 81 mg Oral TbEC 1 tab once daily [Active]; - PMHx: 10:41 CHF; COPD; CVA; Diabetes - IDDM; Hypertension; Myocardial infarction; iw - Immunization history:: Adult Immunizations up to date. - Social history:: Smoking status: Patient/guardian denies using tobacco. - Ebola Screening: : Patient negative for fever greater than or equal to 101.5 degrees Fahrenheit, and additional compatible Ebola Virus Disease symptoms Patient denies exposure to infectious person Patient denies travel to an Ebola-affected area in the 21 days before illness onset No symptoms or risks identified at this time. Screenin:34 Abuse screen: Denies threats or abuse. Denies injuries from another. Nutritional iw screening: No deficits noted. Tuberculosis screening: No symptoms or risk factors identified. Fall Risk IV access (20 points). Assessment: 11:29 Reassessment: pt back from CT. NAD at this time. Respirations remain even and unlabored.ss 11:45 Reassessment: pt carbonating stone cleaner light c/o pain states "can i please have something for pain", tw2 provider notified. 11:45 Cardiovascular: Rhythm is regular. iw 12:12 Neuro: Level of Consciousness is awake, alert, obeys commands. Respiratory: Airway is ss patent Respiratory effort is even, unlabored, Respiratory pattern is regular, symmetrical, Breath sounds with wheezes bilaterally. EENT: Nares are clear Oral mucosa is moist. Derm: Skin is pink, warm \\T\\ dry. normal. 12:31 Reassessment: Pt is resting at this time, eyes closed, respirations remain even and ss unlabored. 13:31 Reassessment: Patient appears in no apparent distress at this time. Patient and/or ss family updated on plan of care and expected duration. Pain level reassessed. Patient is alert, oriented x 3, equal unlabored respirations, skin warm/dry/pink. Reassessment: Pt reports after intial administration of Fentanyl, her pain decreased momentarily, but now her pain is still 10/10. Eli Griffith, HOST notified. Lights dimmed for comfort, patient is resting with eyes closed in exam room. Respirations even and unlabored. Pain: Complains of pain in back and chest, head in entire Pain currently is 10 out of 10 on a pain scale. Pain began last night Is continuous. Musculoskeletal: Circulation, motion, and sensation intact. Range of motion: intact in all extremities. 14:30 Reassessment: Patient appears in no apparent distress at this time. Pt is resting at this time, eyes closed, mouth open. Respirations remain even and unlabored., on all monitors. VS remain within normal limits. 15:22 Reassessment: PT awoken from resting with loud verbal stimuli. Patient is grateful that she was able to rest, but still reports p has minimally decreased to a now 8/10. Ambulated patient in hallway. Steady, slow gait noted. reports minimal dizziness. Eli Griffith NP notified, awaiting discharge. 15:30 Reassessment: Pt given orange juice. And states that her sister will come pick her up. ca1 Vital Signs: 10:39 BP 156 / 104; Pulse 90; Resp 20 S; Temp 99.5(O); Pulse Ox 99% on 2 lpm NC; Weight 81.19 iw kg; Height 5 ft. 3 in. (160.02 cm); Pain 10/10; 11:57 BP 146 / 75; Pulse 89; Resp 19; Temp 100.2(O); Pulse Ox 100% on R/A; Pain 10/10; ss 12:30 Temp 99.1(O); ss 12:30 BP 141 / 77; Pulse 81; Resp 18; Pulse Ox 97% on 2 lpm NC; Pain 10/10; ss 13:09 BP 125 / 87; Pulse 79; Resp 17 S; Temp 99.1(O); Pulse Ox 98% on R/A; ca1 13:30 BP 125 / 87; Pulse 77; Resp 15; Pulse Ox 99% on 2 lpm NC; Pain 10/10; ss 10:39 Body Mass Index 31.71 (81.19 kg, 160.02 cm) iw ED Course: 10:35 Patient arrived in ED. iw 10:35 Maintain EMS IV. Dressing intact. Good blood return noted. Site clean \\T\\ dry. Gauge \\T\\ iw site: 20 RAC. 10:36 Yareli Castaneda RN is Primary Nurse. iw 10:38 [facility]. snw 10:38 Juan José Roger MD is Attending Physician. snw 10:39 Triage completed. iw 10:41 Arm band placed on. iw 11:15 conveyor monitor on. Pulse ox on. NIBP on. ss 11:21 CT completed. Patient tolerated procedure well. Patient moved to CT via stretcher. sj Patient moved back from CT. 11:23 CT Head Brain wo Cont In Process Unspecified. EDMS 11:24 CT Chest For PE Angio In Process Unspecified. EDMS 11:38 Inserted saline lock: 22 gauge in left antecubital area, using aseptic technique. Blood ss collected. 11:58 Flu Sent. ss 12:12 Patient has correct armband on for positive identification. Bed in low position. Call ss light in reach. Side rails up X2. 14:30 No provider procedures requiring assistance completed. ss 15:33 IV discontinued, intact, bleeding controlled, No redness/swelling at site. Pressure ca1 dressing applied. Administered Medications: 10:54 Drug: Phenergan 6.25 mg Route: IVP; Site: right antecubital; iw 11:31 Follow up: Response: No adverse reaction; Nausea is decreased ss 11:30 Drug: NS 0.9% 1000 ml Route: IV; Rate: 125 ml/hr; Site: left antecubital; ss 15:38 Follow up: IV Status: Pt discharged ca1 11:58 Drug: Motrin 400 mg Route: PO; ss 12:38 Follow up: Response: No adverse reaction; Temperature is decreased ss 12:38 Drug: fentaNYL (PF) 25 mcg Route: IVP; Site: left antecubital; ss 13:29 Follow up: Response: No adverse reaction ss 13:50 Drug: Valium 2 mg Route: IVP; Site: left antecubital; ca1 15:18 Follow up: Response: No adverse reaction; No adverse reaction, minimal relief of ss symptoms. Outcome: 15:16 Discharge ordered by . snw 15:33 Discharged to home via wheelchair. ca1 15:33 Condition: stable 15:33 Discharge instructions given to patient, Instructed on discharge instructions, follow up and referral plans. medication usage, Demonstrated understanding of instructions, follow-up care, medications, Prescriptions given X 1. 15:37 Patient left the ED. ca1 Signatures: Dispatcher [employer] EDMI Eli Griffith, JANE-C GLASS INSERTER-Csnw Vanesa Henao Irene, RN RN iw Mercedes Escamilla, RN RN ss Annie Hope, OSITO RN tw2 Tavia Belcher RN RN ca1 Corrections: (The following items were deleted from the chart) 10:42 10:39 BP 156 / 104; Pulse 90bpm; Resp 20bpm; Spontaneous; Pulse Ox 99% 2 lpm Nasal iw Cannula; Temp 99.5F Oral; iw
--- NOTE | 2019-01-16 15:18 | EDPHYS ---
Physician Documentation [facility] Name: Martha Riojas Age: 53 yrs Sex: Female : 1965 Arrival Date: 01/16/2019 Time: 10:35 Bed 24 Private MD: ED Physician Juan José Roger HPI: 01/16 14:11 This 53 yrs old Black Female presents to ER via EMS with complaints of Shortness Of snw Breath, Dizziness, Headache. 14:11 The patient has shortness of breath at rest. Onset: The symptoms/episode began/occurred snw gradually, yesterday. Duration: The symptoms are continuous. Associated signs and symptoms: Pertinent positives: dizziness, fever, nausea, vomiting. Severity of symptoms: At their worst the symptoms were moderate. The patient has not experienced similar symptoms in the past. The patient has not recently seen a physician. 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 N/A - Irregular menses ca1 Historical: - Allergies: 10:41 Prednisone; I'M ALLERGIC TO IT BUT I HAVE TO TAKE IT FROM TIME TO TIME.; iw - Home Meds: 11:09 amlodipine 5 mg tab 1 tab once daily [Active]; carvedilol 6.25 mg Oral tab 1 tab 2 iw times per day [Active]; metoprolol tartrate 100 mg Oral tab 2 times per day [Active]; clopidogrel 75 mg oral tab 1 tab once daily [Active]; Nitrostat 0.4 mg SL subl 1 tab every 5 minutes [Active]; Advair Diskus Inhl 2 times per day [Active]; ProAir HFA 90 mcg/actuation inhalation HFAA every 4-6 hours [Active]; prednisone 20 mg Oral tab once daily [Active]; metolazone 5 mg oral tab 1 tab once daily [Active]; aspirin 81 mg Oral TbEC 1 tab once daily [Active]; - PMHx: 10:41 CHF; COPD; CVA; Diabetes - IDDM; Hypertension; Myocardial infarction; iw - Immunization history:: Adult Immunizations up to date. - Social history:: Smoking status: Patient/guardian denies using tobacco. - Ebola Screening: : Patient negative for fever greater than or equal to 101.5 degrees Fahrenheit, and additional compatible Ebola Virus Disease symptoms Patient denies exposure to infectious person Patient denies travel to an Ebola-affected area in the 21 days before illness onset No symptoms or risks identified at this time. ROS: 14:08 Eyes: Negative for injury, pain, redness, and discharge, ENT: Negative for injury, snw pain, and discharge, Neck: Negative for injury, pain, and swelling, Cardiovascular: Negative for chest pain, palpitations, and edema. 14:08 : Negative for injury, bleeding, discharge, and swelling, MS/Extremity: Negative for injury and deformity, Skin: Negative for injury, rash, and discoloration. 14:08 Constitutional: Positive for body aches, fever, malaise, poor PO intake. 14:08 Respiratory: Positive for cough, wheezing. 14:08 Abdomen/GI: Positive for nausea and vomiting. 14:08 Back: Positive for pain at rest. 14:08 Neuro: Positive for headache. Exam: 14:08 Head/Face: Normocephalic, atraumatic. Eyes: Pupils equal round and reactive to light, snw extra-ocular motions intact. Lids and lashes normal. Conjunctiva and sclera are non-icteric and not injected. Cornea within normal limits. Periorbital areas with no swelling, redness, or edema. ENT: Nares patent. No nasal discharge, no septal abnormalities noted. Tympanic membranes are normal and external auditory canals are clear. Oropharynx with no redness, swelling, or masses, exudates, or evidence of obstruction, uvula midline. Mucous membranes moist. Neck: Trachea midline, no thyromegaly or masses palpated, and no cervical lymphadenopathy. Supple, full range of motion without nuchal rigidity, or vertebral point tenderness. No Meningismus. Chest/axilla: Normal chest wall appearance and motion. Nontender with no deformity. No lesions are appreciated. Cardiovascular: Regular rate and rhythm with a normal S1 and S2. No gallops, murmurs, or rubs. Normal PMI, no JVD. No pulse deficits. 14:08 Abdomen/GI: Soft, non-tender, with normal bowel sounds. No distension or tympany. No guarding or rebound. No evidence of tenderness throughout. Back: No spinal tenderness. No costovertebral tenderness. Full range of motion. Skin: Warm, dry with normal turgor. Normal color with no rashes, no lesions, and no evidence of cellulitis. MS/ Extremity: Pulses equal, no cyanosis. Neurovascular intact. Full, normal range of motion. Neuro: Awake and alert, GCS 15, oriented to person, place, time, and situation. Cranial nerves II-XII grossly intact. Motor strength 5/5 in all extremities. Sensory grossly intact. Cerebellar exam normal. Normal gait. Psych: Awake, alert, with orientation to person, place and time. Behavior, mood, and affect are within normal limits. 14:08 Constitutional: The patient appears alert, awake, anxious, uncomfortable. 14:08 Respiratory: the patient does not display signs of respiratory distress, Respirations: shallow respirations, tachypnea, that is moderate, Breath sounds: decreased breath sounds, + upper airway congestion. wheezing: Vital Signs: 10:39 BP 156 / 104; Pulse 90; Resp 20 S; Temp 99.5(O); Pulse Ox 99% on 2 lpm NC; Weight 81.19 iw kg; Height 5 ft. 3 in. (160.02 cm); Pain 10/10; 11:57 BP 146 / 75; Pulse 89; Resp 19; Temp 100.2(O); Pulse Ox 100% on R/A; Pain 10/10; ss 12:30 Temp 99.1(O); ss 12:30 BP 141 / 77; Pulse 81; Resp 18; Pulse Ox 97% on 2 lpm NC; Pain 10/10; ss 13:09 BP 125 / 87; Pulse 79; Resp 17 S; Temp 99.1(O); Pulse Ox 98% on R/A; ca1 13:30 BP 125 / 87; Pulse 77; Resp 15; Pulse Ox 99% on 2 lpm NC; Pain 10/10; ss 10:39 Body Mass Index 31.71 (81.19 kg, 160.02 cm) iw MDM: 10:38 Patient medically screened. snw 15:13 Data reviewed: vital signs, nurses notes. Data interpreted: Pulse oximetry: on room air snw is 99 %. Interpretation: normal. Counseling: I had a detailed discussion with the patient and/or guardian regarding: the historical points, exam findings, and any diagnostic results supporting the discharge/admit diagnosis, lab results, radiology results, the need for outpatient follow up, to return to the emergency department if symptoms worsen or persist or if there are any questions or concerns that arise at home. Special discussion: I discussed with the patient the need to follow-up with the PCP/specialist for the noted incidental finding on X-ray/CT scanning. Based on the history and exam findings, there is no indication for further emergent testing or inpatient evaluation. I discussed with the patient/guardian the need to see the primary care provider for further evaluation of the symptoms. recommend mammogram for left breast mass noted on CT. . 15:14 Response to treatment: the patient's symptoms have mildly improved after treatment, snw Ambulatory in hallway with Nurse. 01/16 10:47 Order name: Basic Metabolic Panel [facility] 01/16 10:47 Order name: CBC with Diff; Complete Time: 11:16 sn 01/16 10:47 Order name: LFT's; Complete Time: 11:47 [facility] 01/16 10:47 Order name: Magnesium; Complete Time: 11:47 w 01/16 10:47 Order name: NT PRO-BNP; Complete Time: 11:47 [facility] 01/16 10:47 Order name: PT-INR; Complete Time: 11:47 [facility] 01/16 10:47 Order name: Troponin (emerg Dept Use Only); Complete Time: 11:47 snw 01/16 10:48 Order name: Basic Metabolic Panel; Complete Time: 11:47 EDUT 01/16 11:46 Order name: Flu; Complete Time: 12:27 eb 01/16 12:29 Order name: Add On-Lab [facility] 01/16 12:48 Order name: [place] Screen; Complete Time: 13:09 EDUT 01/16 14:08 Order name: Urine Culture [facility] 01/16 14:08 Order name: Urine Microscopic Only; Complete Time: 15:03 [facility] 01/16 14:29 Order name: Urine Dipstick--Ancillary (enter results); Complete Time: 14:46 eb 01/16 10:45 Order name: CT Head Brain wo Cont; Complete Time: 11:47 snw 01/16 10:47 Order name: FSBS; Complete Time: 11:38 snw 01/16 10:47 Order name: CT Chest For PE Angio; Complete Time: 11:47 snw 01/16 10:47 Order name: EKG; Complete Time: 10:49 snw 01/16 10:47 Order name: Cardiac monitoring; Complete Time: 10:54 snw 01/16 10:47 Order name: EKG - Nurse/Tech; Complete Time: 10:54 snw 01/16 10:47 Order name: IV Saline Lock; Complete Time: 10:55 snw 01/16 10:47 Order name: Labs collected and sent; Complete Time: 11:00 snw 01/16 10:47 Order name: O2 Per Protocol; Complete Time: 10:55 snw 01/16 10:47 Order name: O2 Sat Monitoring; Complete Time: 11:00 snw 01/16 14:29 Order name: Urine --Ancillary (enter results); Complete Time: 14:46 eb 01/16 14:08 Order name: Urine Dipstick-Ancillary (obtain specimen); Complete Time: 14:21 snw 01/16 15:03 Order name: Misc. Order: please assist pt with ambulation in hallway; Complete Time: snw 15:17 01/16 15:21 Order name: Misc. Order: juice; Complete Time: 15:23 snw Administered Medications: 10:54 Drug: Phenergan 6.25 mg Route: IVP; Site: right antecubital; iw 11:31 Follow up: Response: No adverse reaction; Nausea is decreased ss 11:30 Drug: NS 0.9% 1000 ml Route: IV; Rate: 125 ml/hr; Site: left antecubital; ss 15:38 Follow up: IV Status: Pt discharged ca1 11:58 Drug: Motrin 400 mg Route: PO; ss 12:38 Follow up: Response: No adverse reaction; Temperature is decreased ss 12:38 Drug: fentaNYL (PF) 25 mcg Route: IVP; Site: left antecubital; ss 13:29 Follow up: Response: No adverse reaction ss 13:50 Drug: Valium 2 mg Route: IVP; Site: left antecubital; ca1 15:18 Follow up: Response: No adverse reaction; No adverse reaction, minimal relief of ss symptoms. Disposition: 01/16/19 15:16 Discharged to Home. Impression: Chronic obstructive pulmonary disease with (acute) exacerbation, Dehydration. - Condition is Stable. - Discharge Instructions: Chronic Obstructive Pulmonary Disease, Dehydration, Adult, Mammogram, Chronic Obstructive Pulmonary Disease Exacerbation, Rehydration, Adult. - Prescriptions for Zofran 4 mg Oral Tablet - take 1 tablet by ORAL route every 12 hours As needed; 6 tablet. - Medication Reconciliation Form, Thank You Letter, Antibiotic Education, Prescription Opioid Use form. - Follow up: Emergency Department; When: As needed; Reason: Worsening of condition. Follow up: Private Physician; When: 2 - 3 days; Reason: Recheck today's complaints, Continuance of care, Re-evaluation by your physician. Addendum: 01/17/2019 19:28 Co-signature as Attending Physician, Juan José Roger MD I agree with the assessment and k dr plan of care. Signatures: Dispatcher [employer] EDMS Juan José Roger MD MD [facility] Eli Griffith, LITHOGRAPH PRINTER-C LITHOGRAPH PRINTER-Csnw Yareli Castaneda, RN RN iw Mercedes Escamilla RN RN ss Tavia Belcher RN RN ca1 Corrections: (The following items were deleted from the chart) 01/16 15:37 15:16 01/16/2019 15:16 Discharged to Home. Impression: Chronic obstructive pulmonary ca1 disease with (acute) exacerbation; Dehydration. Condition is Stable. Forms are Medication Reconciliation Form, Thank You Letter, Antibiotic Education, Prescription Opioid Use. Follow up: Emergency Department; When: As needed; Reason: Worsening of condition. Follow up: Private Physician; When: 2 - 3 days; Reason: Recheck today's complaints, Continuance of care, Re-evaluation by your physician. snw
[2019-01-16 17:08] VITALS: TEMP 99.1
[2019-01-16 17:09] VITALS: BP 125/87
[2019-01-16 17:10] VITALS: O2SAT 99
== END 2019-01-16 15:37 | disposition home or self-care (01) ==
LOC: ER 10:32
DX: J44.1 Chronic obstructive pulmonary disease with (acute) exacerbation (principal); E86.0 Dehydration; J44.9 Chronic obstructive pulmonary disease, unspecified; E11.9 Type 2 diabetes mellitus without complications; I10 Essential (primary) hypertension; I25.2 Old myocardial infarction; Z79.82 Long term (current) use of aspirin
CPT/HCPCS: 93005; 87088; 85025; 87086; 80048; 36415; 83735; 86308; 81025; 85610; 80076; 84484; 83880; 87804 ×2; 70450; 71275; 96375; 96374; 99285; Q9967; J2550; J3360; J3010; 81003; 81015

== ENCOUNTER 2021-08-24 08:32 | Emergency (ER) | payer OTHER ==
--- OUTSIDE RECORDS SUMMARY | 2021-08-24 08:39 | XMS REPORT | Clinical Summary ---
:[address] [facility] MD [facility] Address [address] [place] [address] Care Team Providers Name Role Phone Corky Juárez MD Unavailable Allergies Not on File Medications Not on file Active Problems Not on file Encounters Date Type Specialty Care Team Description 02/02/2021 Telephone Breast Medical Oncology Vanesa Rockwell, RN after 08/24/2020 Social History Tobacco Use Types Packs/Day Years Used Date Never Assessed Sex Assigned at Date Recorded Not on file Job Start Date Occupation Industry Not on file Not on file Not on file Last Filed Vital Signs Not on file Plan of Treatment Not on file Results Not on fileafter 08/24/2020 Insurance Payer Benefit Plan / Subscriber ID Effective Phone Address T ype Group Dates [employer] MEDICARE [employer] GOLD PLUS [id number] 2019-Pres [address] Medicare MEDICARE HMO ent [id number] [place] [address] [place] [id number] 2021-Pres [address] Medicaid TRADITIONAL 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
--- OUTSIDE RECORDS SUMMARY | 2021-08-24 08:40 | XMS REPORT | Continuity of Care Document ---
:1965 Author Organization [facility] t Address [address] [place] [address] Care Team Providers Name Role Phone GUTIERREZ Primary Care Physician Unavailable Dexter SHELLEY Attending Clinician Unavailable Stacey FARLEY Attending Clinician Unavailable Corky CLEMONS Attending Clinician Unavailable ABIMAEL HARRIS Attending Clinician Unavailable Doctor Unassigned, Name Attending Clinician Unavailable Moiz MCNEILL Attending Clinician Unavailable Dexter Alexander Attending Clinician FERMÍN Attending Clinician Unavailable Corky ROMAN Attending Clinician Unavailable Corky CLEMONS Admitting Clinician Unavailable Payers Payer Name Policy Policy Number Effective Expiration Source Type Date Date [employer]NA [facility] [id number] 2019 00:00:00 [facility] [id number] 2020 00:00:00 HUMANA MEDICAREHUMANA [id number] 2019 MD Wale DENNEY PLUS MEDICARE 00:00:00 [id number] 2019-Pr [address] [address], [place] [address]Medicare [place] [id number] 2021 MD Anderso n TRADITIONAL[place]ID [place] 00:00:00 TRADITIONAL STAR PLUS [id number] 2020-Pr es[address], [place] [address]Medicaid Problems Condition Condition Condition Status Onset Resolution Last Treating Co mments Source Name Details Category Date Date Treatment Clinician Date No known No known Disease Unive rs active active ity of problems problems [facility] Allergies, Adverse Reactions, Alerts Allergy Allergy Status Severity Reaction(s) Onset Inactive Treating Comm ents Source Name Type Date Date Clinician NO KNOWN Drug Active Univers ALLERGIE Class ity of S [facility] Social History Social Habit Start Date Stop Date Quantity Comments Source Exposure to Not sure [facility] SARS-CoV-2 [facility] (event) [place] Tobacco use and 2020-11-30 2020-11-30 Never used Universit y of exposure 00:00:00 00:00:00 [facility] Alcohol intake 2020-11-30 2020-11-30 Ex-drinker [facility] 00:00:00 00:00:00 (finding) [facility] Sex Ass[birth year] At [birth year] MD Godinez on 00:00:00 00:00:00 Smoking Status Start Date Stop Date Source Never smoker [facility] Medications Ordered Filled Start Stop Current Ordering Indication Dosage Frequency Signature Comments Components Source Medication Medication Date Date Medication? Clinician (SIG) Name Name insulin Yes inject Univers lispro 3-24 under the ity of (HUMALOG 15:16: skin. [place] PEN ID) [address] [place] [address] insulin Yes inject Univers lispro 3-24 under the ity of (HUMALOG 15:16: skin. [place] PEN SC) [address] [place] [address] insulin Yes inject Univers lispro 3-24 under the ity of (HUMALOG 15:16: skin. [place] PEN SC) [facility] insulin Yes inject Univers lispro 3-24 under the ity of (HUMALOG 15:16: skin. [place] PEN SC) [facility] insulin Yes inject Univers lispro 3-24 under the ity of (HUMALOG 15:16: skin. [place] PEN ID) [facility] insulin Yes inject Univers lispro 3-24 under the ity of (HUMALOG 15:16: skin. [place] PEN SC) [address] [place] [address] insulin Yes inject Univers lispro 3-24 under the ity of (HUMALOG 15:16: skin. [place] PEN ID) 19 [facility] insulin 0 Yes inject Univers lispro 3-24 under the ity of (HUMALOG 15:16: skin. [place] PEN ID) 19 [facility] Branch insulin Yes inject Univers lispro 3-24 under the ity of (HUMALOG 15:16: skin. [place] PEN ID) [facility] Branch insulin Yes inject Univers lispro 3-24 under the ity of (HUMALOG 15:16: skin. [place] PEN ID) [facility] Branch insulin Yes inject Univers lispro 3-24 under the ity of (HUMALOG 15:16: skin. [place] PEN ID) [facility] insulin Yes inject Univers lispro 3-24 under the ity of (HUMALOG 15:16: skin. [place] PEN ID) [facility] insulin Yes inject Univers lispro 3-24 under the ity of (HUMALOG 15:16: skin. [place] PEN ID) [facility] insulin Yes inject Univers lispro 3-24 under the ity of (HUMALOG 15:16: skin. [place] PEN ID) [facility] insulin Yes inject Univers lispro 3-24 under the ity of (HUMALOG 15:16: skin. [place] PEN ID) [facility] insulin Yes inject Univers lispro 3-24 under the ity of (HUMALOG 15:16: skin. [place] PEN ID) [facility] insulin Yes inject Univers lispro 3-24 under the ity of (HUMALOG 15:16: skin. [place] PEN ID) [address] [place] [address] predniSONE Yes 20mg Take 20 mg U nivers 10 mg 3-24 by mouth ity of tablet 15:13: daily. [address] furosemide Yes 40mg Take 40 mg U nivers (LASIX) 40 3-24 by mouth ity o f mg tablet 15:13: daily. [address] LISINOPRIL Yes Take by Uni vers ORAL 3-24 mouth. ity of 15:13: [address] amLODIPine Yes 10mg Take 10 mg U nivers 10 mg 3-24 by mouth ity of tablet 15:13: daily. [address] CARVEDILOL 2020-0 Yes Take by Uni vers ORAL 3-24 mouth. ity of 15:13: [address] predniSONE 2021-0 Yes 20mg Take 20 mg U nivers 10 mg 3-24 by mouth ity of tablet 15:13: daily. [address] furosemide 2021-0 Yes 40mg Take 40 mg U nivers (LASIX) 40 3-24 by mouth ity o f mg tablet 15:13: daily. [address] LISINOPRIL 2021-0 Yes Take by Uni vers ORAL 3-24 mouth. ity of 15:13: [address] amLODIPine 1-0 Yes 10mg Take 10 mg U nivers 10 mg 3-24 by mouth ity of tablet 15:13: daily. [address] CARVEDILOL 2020-0 Yes Take by Uni vers ORAL 3-24 mouth. ity of 15:13: [address] predniSONE 2021-0 Yes 20mg Take 20 mg U nivers 10 mg 3-24 by mouth ity of tablet 15:13: daily. [address] furosemide 1-0 Yes 40mg Take 40 mg U nivers (LASIX) 40 3-24 by mouth ity o f mg tablet 15:13: daily. [address] LISINOPRIL 1-0 Yes Take by Uni vers ORAL 3-24 mouth. ity of 15:13: [address] amLODIPine 1-0 Yes 10mg Take 10 mg U nivers 10 mg 3-24 by mouth ity of tablet 15:13: daily. [address] CARVEDILOL 2020-0 Yes Take by Uni vers ORAL 3-24 mouth. ity of 15:13: [address] predniSONE 2021-0 Yes 20mg Take 20 mg U nivers 10 mg 3-24 by mouth ity of tablet 15:13: daily. [address] furosemide 2021-0 Yes 40mg Take 40 mg U nivers (LASIX) 40 3-24 by mouth ity o f mg tablet 15:13: daily. [address] LISINOPRIL 2021-0 Yes Take by Uni vers ORAL 3-24 mouth. ity of 15:13: [address] amLODIPine 2021-0 Yes 10mg Take 10 mg U nivers 10 mg 3-24 by mouth ity of tablet 15:13: daily. [address] CARVEDILOL 2020-0 Yes Take by Uni vers ORAL 3-24 mouth. ity of 15:13: [address] predniSONE 2021-0 Yes 20mg Take 20 mg U nivers 10 mg 3-24 by mouth ity of tablet 15:13: daily. [address] furosemide 2020-0 Yes 40mg Take 40 mg U nivers (LASIX) 40 3-24 by mouth ity o f mg tablet 15:13: daily. [address] LISINOPRIL 2020-0 Yes Take by Uni vers ORAL 3-24 mouth. ity of 15:13: [address] amLODIPine 1-0 Yes 10mg Take 10 mg U nivers 10 mg 3-24 by mouth ity of tablet 15:13: daily. [address] CARVEDILOL 2020-0 Yes Take by Uni vers ORAL 3-24 mouth. ity of 15:13: [address] predniSONE 1-0 Yes 20mg Take 20 mg U nivers 10 mg 3-24 by mouth ity of tablet 15:13: daily. [address] furosemide 1-0 Yes 40mg Take 40 mg U nivers (LASIX) 40 3-24 by mouth ity o f mg tablet 15:13: daily. [address] LISINOPRIL 2020-0 Yes Take by Uni vers ORAL 3-24 mouth. ity of 15:13: [address] amLODIPine 1-0 Yes 10mg Take 10 mg U nivers 10 mg 3-24 by mouth ity of tablet 15:13: daily. [address] CARVEDILOL 1-0 Yes Take by Uni vers ORAL 3-24 mouth. ity of 15:13: [address] predniSONE 1-0 Yes 20mg Take 20 mg U nivers 10 mg 3-24 by mouth ity of tablet 15:13: daily. [address] furosemide 2021-0 Yes 40mg Take 40 mg U nivers (LASIX) 40 3-24 by mouth ity o f mg tablet 15:13: daily. [address] LISINOPRIL 1-0 Yes Take by Uni vers ORAL 3-24 mouth. ity of 15:13: [address] amLODIPine 2020-0 Yes 10mg Take 10 mg U nivers 10 mg 3-24 by mouth ity of tablet 15:13: daily. [address] CARVEDILOL 2020-0 Yes Take by Uni vers ORAL 3-24 mouth. ity of 15:13: [address] predniSONE 2020-0 Yes 20mg Take 20 mg U nivers 10 mg 3-24 by mouth ity of tablet 15:13: daily. [address] furosemide 2020-0 Yes 40mg Take 40 mg U nivers (LASIX) 40 3-24 by mouth ity o f mg tablet 15:13: daily. [address] LISINOPRIL 2020-0 Yes Take by Uni vers ORAL 3-24 mouth. ity of 15:13: [address] amLODIPine 2020-0 Yes 10mg Take 10 mg U nivers 10 mg 3-24 by mouth ity of tablet 15:13: daily. [address] CARVEDILOL 2020-0 Yes Take by Uni vers ORAL 3-24 mouth. ity of 15:13: [address] predniSONE 2020-0 Yes 20mg Take 20 mg U nivers 10 mg 3-24 by mouth ity of tablet 15:13: daily. [address] furosemide 2020-0 Yes 40mg Take 40 mg U nivers (LASIX) 40 3-24 by mouth ity o f mg tablet 15:13: daily. [address] LISINOPRIL 2020-0 Yes Take by Uni vers ORAL 3-24 mouth. ity of 15:13: [address] amLODIPine 2020-0 Yes 10mg Take 10 mg U nivers 10 mg 3-24 by mouth ity of tablet 15:13: daily. [address] CARVEDILOL 2020-0 Yes Take by Uni vers ORAL 3-24 mouth. ity of 15:13: [address] predniSONE 1-0 Yes 20mg Take 20 mg U nivers 10 mg 3-24 by mouth ity of tablet 15:13: daily. [address] furosemide 1-0 Yes 40mg Take 40 mg U nivers (LASIX) 40 3-24 by mouth ity o f mg tablet 15:13: daily. [address] LISINOPRIL 202-0 Yes Take by Uni vers ORAL 3-24 mouth. ity of 15:13: [address] amLODIPine 1-0 Yes 10mg Take 10 mg U nivers 10 mg 3-24 by mouth ity of tablet 15:13: daily. [address] CARVEDILOL 2020-0 Yes Take by Uni vers ORAL 3-24 mouth. ity of 15:13: [address] predniSONE 2021-0 Yes 20mg Take 20 mg U nivers 10 mg 3-24 by mouth ity of tablet 15:13: daily. [address] furosemide 1-0 Yes 40mg Take 40 mg U nivers (LASIX) 40 3-24 by mouth ity o f mg tablet 15:13: daily. [address] LISINOPRIL 2020-0 Yes Take by Uni vers ORAL 3-24 mouth. ity of 15:13: [address] amLODIPine 1-0 Yes 10mg Take 10 mg U nivers 10 mg 3-24 by mouth ity of tablet 15:13: daily. [address] CARVEDILOL 2020-0 Yes Take by Uni vers ORAL 3-24 mouth. ity of 15:13: [address] predniSONE 1-0 Yes 20mg Take 20 mg U nivers 10 mg 3-24 by mouth ity of tablet 15:13: daily. [address] furosemide 1-0 Yes 40mg Take 40 mg U nivers (LASIX) 40 3-24 by mouth ity o f mg tablet 15:13: daily. [address] LISINOPRIL 2020-0 Yes Take by Uni vers ORAL 3-24 mouth. ity of 15:13: [address] amLODIPine 1-0 Yes 10mg Take 10 mg U nivers 10 mg 3-24 by mouth ity of tablet 15:13: daily. [address] CARVEDILOL 1-0 Yes Take by Uni vers ORAL 3-24 mouth. ity of 15:13: [address] predniSONE 2021-0 Yes 20mg Take 20 mg U nivers 10 mg 3-24 by mouth ity of tablet 15:13: daily. [address] furosemide 2021-0 Yes 40mg Take 40 mg U nivers (LASIX) 40 3-24 by mouth ity o f mg tablet 15:13: daily. [address] LISINOPRIL 2020-0 Yes Take by Uni vers ORAL 3-24 mouth. ity of 15:13: [address] amLODIPine 2020-0 Yes 10mg Take 10 mg U nivers 10 mg 3-24 by mouth ity of tablet 15:13: daily. [address] CARVEDILOL 2020-0 Yes Take by Uni vers ORAL 3-24 mouth. ity of 15:13: [address] predniSONE 2020-0 Yes 20mg Take 20 mg U nivers 10 mg 3-24 by mouth ity of tablet 15:13: daily. [address] furosemide 2020-0 Yes 40mg Take 40 mg U nivers (LASIX) 40 3-24 by mouth ity o f mg tablet 15:13: daily. [address] LISINOPRIL 2020-0 Yes Take by Uni vers ORAL 3-24 mouth. ity of 15:13: [address] amLODIPine 2020-0 Yes 10mg Take 10 mg U nivers 10 mg 3-24 by mouth ity of tablet 15:13: daily. [address] CARVEDILOL 2020-0 Yes Take by Uni vers ORAL 3-24 mouth. ity of 15:13: [address] predniSONE 2020-0 Yes 20mg Take 20 mg U nivers 10 mg 3-24 by mouth ity of tablet 15:13: daily. [address] furosemide 2020-0 Yes 40mg Take 40 mg U nivers (LASIX) 40 3-24 by mouth ity o f mg tablet 15:13: daily. [address] LISINOPRIL 2020-0 Yes Take by Uni vers ORAL 3-24 mouth. ity of 15:13: [address] amLODIPine 2020-0 Yes 10mg Take 10 mg U nivers 10 mg 3-24 by mouth ity of tablet 15:13: daily. [address] CARVEDILOL 2020-0 Yes Take by Uni vers ORAL 3-24 mouth. ity of 15:13: [address] predniSONE 1-0 Yes 20mg Take 20 mg U nivers 10 mg 3-24 by mouth ity of tablet 15:13: daily. [address] furosemide 1-0 Yes 40mg Take 40 mg U nivers (LASIX) 40 3-24 by mouth ity o f mg tablet 15:13: daily. [address] LISINOPRIL 2020-0 Yes Take by Uni vers ORAL 3-24 mouth. ity of 15:13: [address] amLODIPine 2020-0 Yes 10mg Take 10 mg U nivers 10 mg 3-24 by mouth ity of tablet 15:13: daily. [address] CARVEDILOL 0 Yes Take by Uni vers ORAL 3-24 mouth. ity of 15:13: [address] predniSONE 2020-0 Yes 20mg Take 20 mg U nivers 10 mg 3-24 by mouth ity of tablet 15:13: daily. [address] furosemide 2020-0 Yes 40mg Take 40 mg U nivers (LASIX) 40 3-24 by mouth ity o f mg tablet 15:13: daily. [address] LISINOPRIL 0 Yes Take by Uni vers ORAL 3-24 mouth. ity of 15:13: [address] amLODIPine 0 Yes 10mg Take 10 mg U nivers 10 mg 3-24 by mouth ity of tablet 15:13: daily. [address] CARVEDILOL 0 Yes Take by Uni vers ORAL 3-24 mouth. ity of 15:13: [address] Immunizations Ordered Filled Immunization Date Status Comments [facility] e Immunization Name Name Influenza Virus 2020-11-30 Completed Universit y of Vaccine Quad .5 mL 00:00:00 [facility] 6+ MO Branch Influenza Virus 2020-11-30 Completed Universit y of Vaccine Quad .5 mL 00:00:00 [facility] IM 6+ MO Branch Influenza Virus 2020-11-30 Completed Universit y of Vaccine Quad .5 mL 00:00:00 [facility] IM 6+ MO Branch Influenza Virus 2020-11-30 Completed Universit y of Vaccine Quad .5 mL 00:00:00 [facility] IM 6+ MO Branch Influenza Virus 2020-11-30 Completed Universit y of Vaccine Quad .5 mL 00:00:00 [facility] IM 6+ MO Branch Influenza Virus 2020-11-30 Completed Universit y of Vaccine Quad .5 mL 00:00:00 [facility] 6+ MO Branch Influenza Virus 2020-11-30 Completed Universit y of Vaccine Quad .5 mL 00:00:00 [place] [facility] 6+ MO Branch Influenza Virus 2020-11-30 Completed Universit y of Vaccine Quad .5 mL 00:00:00 [place] [facility] IM 6+ MO Branch Influenza Virus 2020-11-30 Completed Universit y of Vaccine Quad .5 mL 00:00:00 [place] [facility] IM 6+ MO Branch Influenza Virus 2020-11-30 Completed Universit y of Vaccine Quad .5 mL 00:00:00 [place] [facility] IM 6+ MO Branch Influenza Virus 2020-11-30 Completed Universit y of Vaccine Quad .5 mL 00:00:00 [place] [facility] IM 6+ MO Branch Influenza Virus 2020-11-30 Completed Universit y of Vaccine Quad .5 mL 00:00:00 [place] [facility] IM 6+ MO Branch Influenza Virus 2020-11-30 Completed Universit y of Vaccine [place] .5 mL 00:00:00 [place] [facility] IM 6+ MO Branch Influenza Virus 2020-11-30 Completed Universit y of Vaccine [place] .5 mL 00:00:00 [place] [facility] 6+ MO Branch Influenza Virus 2020-11-30 Completed Universit y of Vaccine [place] .5 mL 00:00:00 [facility] 6+ MO Branch Influenza Virus 2020-11-30 Completed Universit y of Vaccine Quad .5 mL 00:00:00 [facility] 6+ MO Branch Influenza Virus 2020-11-30 Completed Universit y of Vaccine Quad .5 mL 00:00:00 [facility] 6+ MO Branch Vital Signs Vital Name Observation Time Observation Value Comments Source Systolic blood 2020-11-30 15:04:00 150 mm[Hg] Univer sity of pressure [facility] Diastolic blood 2020-11-30 15:04:00 98 mm[Hg] Unive rsity of pressure [facility] Heart rate 2020-11-30 15:03:00 73 /min [facility] Body temperature 2020-11-30 15:03:00 36.78 Milady [facility] ersity [facility] Respiratory rate 2020-11-30 15:03:00 16 /min [facility] ersity [facility] Body height 2020-11-30 15:03:00 160 cm [facility] Body weight 2020-11-30 15:03:00 83.717 kg [facility] BMI 2020-11-30 15:03:00 32.69 kg/m2 [facility] Medical [place] Procedures Procedure Date / Time Performing Clinician Source Performed AUTHORIZATION FOR 2021-02-08 05:01:00 Doctor Unassigned, No Univ [facility] RELEASE OF PHI Name Medical Branch BI BIOPSY LYMPHNODE 2020-12-26 19:18:53 [facility] Medical Branch BI US GUIDED CORE BREAST 2020-12-26 17:05:00 Nicole Shelley [facility] BIOPSY LEFT Medical Branch BI UPRIGHT STEREOTACTIC 2020-12-26 17:05:00 Nicole Shelley [facility] CORE BREAST BIOPSY RIGHT Medical Branch BI ULTRASOUND BREAST 2020-12-13 18:49:07 [facility] COMPLETE BILATERAL Medical Branc h BI DIAGNOSTIC 2020-12-13 17:57:04 Nicole Shelley [facility] TOMOSYNTHESIS BILATERAL Medical Branch FLU VACC ([id number]), 6+ 2020-11-30 15:05:23 Nicole Shelley [facility] MONTHS, IM, QUAD Medical Branch Encounters Start End Encounter Admission Attending Care Care Encounter Source Date/Time Date/Time Type Type Clinicians Facility Department ID 2021-08-15 2021-08-15 Outpatient R ARTURO, [facility] [id number] Univers 14:00:00 14:00:00 NICOLE [id number] mark o f [facility] 2021-08-15 2021-08-15 Outpatient R ARTURO, [facility] [id number] Univers 00:00:00 00:00:00 NICOLE flanagany o f [facility] 2021-06-27 2021-06-27 Outpatient ARTURO [facility] [id number] Univers 12:30:00 12:30:00 NICOLE [id number] ity o f [facility] 2021-06-27 2021-06-27 Outpatient R ARTURO, [facility] [id number] Univers 12:00:00 12:00:00 NICOLE ity o [facility] 2021-06-16 2021-06-16 Outpatient MARTINE [facility] [id number] [facility]FB 10:24:00 14:30:00 RAJEEV 2021-05-17 2021-05-17 Outpatient MARTINE, [facility] [id number] [facility] 11:14:00 16:30:00 RAJEEV 2021-05-08 2021-05-08 Outpatient DEONTE, [facility] [id number] [facility]FB 13:54:00 23:59:00 MARLENI 2021-04-08 2021-04-08 Outpatient KIMBERLY, [facility] [id number] [facility] 00:34:00 00:34:00 JESSICA 2021-03-21 2021-03-21 Outpatient KIMBERLY, [facility] [id number] MHSW 05:40:00 15:56:00 JESSICA 2021-02-08 2021-02-08 Orders Doctor VERENICE [id number] Univers 00:00:00 00:00:00 Only Unassigned, ISIDRA [id number] ity of [facility] [id number] [place] as [phone] [address] 2021-02-02 2021-02-02 Telephone [facility] [id number] [facility] 00:00:00 00:00:00 Nicole Renteria 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 [id number] ity [facility] [id number] Kraig as MATERNAL [id number] Med ical & CHILD [address] [place] [address] 2021-02-01 2021-02-01 Outpatient Kaveh KOVACS [facility] [id number] Univers 10:30:00 10:30:00 SELVIN [id number] [facility] 2021-02-01 2021-02-01 Outpatient Kaveh KOVACS [facility] [id number] Univers 10:30:00 10:30:00 SELVIN [facility] 2021-01-31 2021-01-31 Outpatient Kaveh ROMAN [facility] [id number] Univers 15:00:00 15:00:00 MARCIE [id number] [facility] 2021-01-31 2021-01-31 [facility] [id number] Univers 15:00:00 15:00:00 MARCIE [facility] 2021-01-03 2021-01-03 Outpatient Kaveh ROMAN [facility] [id number] Univers 16:00:00 16:00:00 MARCIE [id number] [facility] 2021-01-03 2021-01-03 Outpatient Kaveh ROMAN [facility] [id number] Univers 16:00:00 16:00:00 MARCIE [facility] 2020-12-29 2020-12-29 Telephone [facility] [id number] Univers 00:00:00 00:00:00 Nicole C 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 [id number] ity of [facility] [id number] Kraig as MATERNAL [phone] [facility] ical & CHILD [address] [place] [address] 2020-12-28 2020-12-28 [facility] [id number] Univers 00:00:00 00:00:00 Nicole C 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 [id number] ity of [facility] [id number] Kraig as MATERNAL [phone] [facility] [address] [place] [address] 2020-12-26 2020-12-26 [facility] [id number] Univers 09:18:28 23:59:00 Encounter Nicole C SPECIALTY [id number] ity of [id number] [phone] [address] 2020-12-26 2020-12-26 [facility] [id number] Univers 09:18:13 23:59:00 Encounter Nicole C SPECIALTY [id number] ity [id number] [id number] [address] 2020-12-26 2020-12-26 Outpatient [facility] [id number] Univers 11:05:00 11:05:00 NICOLE [id number] ity o f [facility] 2020-12-26 2020-12-26 [facility] [id number] Univers 09:00:00 09:17:00 Encounter Nicole Renteria SPECIALTY [id number] ity of [facility] [id number] [facility] AT [id number] Fl baldomero HOOD [address] [place] [address] 2020-12-26 2020-12-26 Outpatient R 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 [id number] ity of REGIONAL [id number] Kraig as MATERNAL [phone] Med ical & CHILD [address] [place] [address] 2020-12-14 2020-12-14 Outpatient R [facility] [id number] Univers 14:00:00 14:00:00 [id number] ity of [facility] 2020-12-14 2020-12-14 Outpatient R [facility] [id number] Univers 14:00:00 14:00:00 ity of [facility] 2020-12-13 2020-12-13 [facility] [id number] Univers 10:45:10 23:59:00 Encounter Nicole Pal [id number] ity of [place] [id number] [facility] [id number] [facility] 806 [place] 2020-12-13 2020-12-13 [facility] [id number] Univers 10:44:29 10:44:29 Encounter Nicole Pal [id number] ity of [place] [id number] [facility] [id number] [facility] 800 Branch 2020-12-132020-12-13 Outpatient R ARTURO [facility] [id number] Univers 00:00:00 00:00:00 NICOLE [id number] masharuperto ayala [facility] 2020-12-13 2020-12-13 Outpatient R ARTURO [facility] [id number] Univers 00:00:00 00:00:00 NICOLE flanaganruperto o jamie [facility] 2020-12-13 2020-12-13 Telephone [facility] [id number] Univers 00:00:00 00:00:00 Nicole Renteria 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 [id number] ity of [facility] [id number] Kraig as MATERNAL [phone] [facility] [address] [place] [address] 2020-11-30 2020-11-30 [facility] [id number] Univers 09:49:09 11:05:16 Visit Nicole Renteria 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 [id number] ity of [facility] [id number] Kraig as MATERNAL [phone] [facility] & CHILD [address] [place] [address] 2020-11-30 2020-11-30 [facility] [id number] Univers 09:30:00 09:30:00 NICOLE pelayo [facility] Results Test Description Test Time Test Comments Results Result Sour e Comments BI US GUIDED CORE 2020-12-08 Examination:BI University of BREAST BIOPSY LEFT 9 GUIDED CORE BREAST [facility] 21:21:40 BIOPSY LEFTBI US Branch GUIDED LYMPH NODE BIOPSY LEFT The procedure was explained to the patient including benefits and alternatives. ?The risks, including but not limited to infection and bleeding, were reviewed and the patient agreed to undergo the procedure, signing the consent form. ?Timeout was performed. History:Patient is a 55 year old year old female and is seen for: 12/13/20 mammogram: ?32 mm irregularly shaped palpable mass in the left breast at 8 o'clock, 6 cm from the nipple, BI-RADS 5. 18 mm round level I axillary lymph node with loss of the normal fatty hilum, BI-RADS 5. ? Comparisons: 12/26/2020 BI UPRIGHT STEREOTACTIC CORE BREAST BIOPSY RIGHT, 12/13/2020 BI DIAGNOSTIC TOMOSYNTHESIS BILATERAL, and 12/13/2020 BI ULTRASOUND BREAST COMPLETE BILATERAL The patient was positioned supine, and the area of interest was localized using real-time ultrasound guidance. Biopsy #1 - 32 mm mass in the left breast at 8 o'clock, 6 cm from the nipple After antiseptic preparation the skin puncture site was draped and infiltrated with lidocaine. ?A skin incision was made. ?A 14 gauge Bard automated core biopsy needle was advanced to the targeted 32 mm mass in the left breast at 8 o'clock, 6 cm from the nipple. ?Multiple tissue cores were obtained through the target. ?A COIL shaped tissue marker clip was then deployed. ?Continuous real-time ultrasound was used for guidance throughout the procedure. ?Post biopsy mammogram confirmed clip at the biopsy site. Biopsy #2 - 18 mm level I axillary lymph node After antiseptic preparation the skin puncture site was draped and infiltrated with lidocaine. ?A skin incision was made. ?A 14 gauge Parnell core biopsy needle was advanced to the targeted abnormal appearing 18 mm left axillary lymph node. ?Multiple tissue cores were obtained through the target. ?A RING shaped tissue marker clip was then deployed. ?Continuous real-time ultrasound was used for guidance throughout the procedure. ?Post biopsy mammogram confirmed clip at the biopsy site. Of note, the post biopsy mammograms are attached to the same date stereotactic biopsy image set, [id number]. Recommendation:Pend ing pathology results - Left Site 1- Tissue sampling of the 32 mm irregularly shaped palpable mass in the left breast at 8 o'clock, 6 cm from the nipple, BI-RADS 5. COIL clip. Site 2- Tissue sampling of the abnormal appearing level I axillary lymph node. BI-RADS 5. RING shaped clip. IGinger MD, personally reviewed the study and agree with the resident's/fellow's report.Ginger Oneal MD as teaching physician, was present during either the entire procedure and/or during the gonzalez components. BI US GUIDED LYMPH 2020-12-08 Examination:BI US [facility] NODE BIOPSY LEFT 9 GUIDED CORE BREAST [facility] 21:21:40 BIOPSY LEFTBI US Branch GUIDED LYMPH NODE BIOPSY LEFT The procedure was explained to the patient including benefits and alternatives. ?The risks, including but not limited to infection and bleeding, were reviewed and the patient agreed to undergo the procedure, signing the consent form. ?Timeout was performed. History:Patient is a 55 year old year old female and is seen for: 12/13/20 mammogram: ?32 mm irregularly shaped palpable mass in the left breast at 8 o'clock, 6 cm from the nipple, BI-RADS 5. 18 mm round level I axillary lymph node with loss of the normal fatty hilum, BI-RADS 5. ? Comparisons: 12/26/2020 BI UPRIGHT STEREOTACTIC CORE BREAST BIOPSY RIGHT, 12/13/2020 BI DIAGNOSTIC TOMOSYNTHESIS BILATERAL, and 12/13/2020 BI ULTRASOUND BREAST COMPLETE BILATERAL The patient was positioned supine, and the area of interest was localized using real-time ultrasound guidance. Biopsy #1 - 32 mm mass in the left breast at 8 o'clock, 6 cm from the nipple After antiseptic preparation the skin puncture site was draped and infiltrated with lidocaine. ?A skin incision was made. ?A 14 gauge Bard automated core biopsy needle was advanced to the targeted 32 mm mass in the left breast at 8 o'clock, 6 cm from the nipple. ?Multiple tissue cores were obtained through the target. ?A COIL shaped tissue marker clip was then deployed. ?Continuous real-time ultrasound was used for guidance throughout the procedure. ?Post biopsy mammogram confirmed clip at the biopsy site. Biopsy #2 - 18 mm level I axillary lymph node After antiseptic preparation the skin puncture site was draped and infiltrated with lidocaine. ?A skin incision was made. ?A 14 gauge Parnell core biopsy needle was advanced to the targeted abnormal appearing 18 mm left axillary lymph node. ?Multiple tissue cores were obtained through the target. ?A RING shaped tissue marker clip was then deployed. ?Continuous real-time ultrasound was used for guidance throughout the procedure. ?Post biopsy mammogram confirmed clip at the biopsy site. Of note, the post biopsy mammograms are attached to the same date stereotactic biopsy image set, [id number]. Recommendation:Pend ing pathology results - Left Site 1- Tissue sampling of the 32 mm irregularly shaped palpable mass in the left breast at 8 o'clock, 6 cm from the nipple, BI-RADS 5. COIL clip. Site 2- Tissue sampling of the abnormal appearing level I axillary lymph node. BI-RADS 5. RING shaped clip. I, Ginger Juárez MD, personally reviewed the study and agree with the resident's/fellow's report.I, Ginger Juárez MD as teaching physician, was present during either the entire procedure and/or during the gonzalez components. UPRIGHT 2020-12-08 Examination:[facility] STEREOTACTIC CORE 9 UPRIGHT [facility] BREAST BIOPSY 21:18:56 STEREOTACTIC CORE [facility] RIGHT BREAST BIOPSY RIGHT The procedure was explained to the patient including benefits and alternatives. ?The risks, including but not limited to infection and bleeding, were reviewed and the patient agreed to undergo the procedure, signing the consent form. ?Timeout was performed. History:Patient is a 55 year old year old female and is seen for: ?12/13/20 mammogram - ?9 mm amorphous calcifications in a grouped distribution seen in the lower inner quadrant of the right breast, middle depth, 9 cm from the nipple; best seen on RCC view 6 of 57, RML view 56 of 72. Comparisons: 12/13/2020 BI DIAGNOSTIC TOMOSYNTHESIS BILATERAL The patient was upright position for the biopsy. ?The area of interest (above mentioned lower inner quadrant calcifications) was localized and targeted via medial approach utilizing digital spot mammography with computer calculation. After antiseptic preparation the skin puncture site was infiltrated with lidocaine. ?Deep local anesthesia about the biopsy site was administered using lidocaine with epinephrine. ?A skin incision was made. ?A 9 gauge Brevera vacuum-assisted automated core biopsy needle was inserted to the computer determined depth, and stereotactic images showed satisfactory relationship of the needle position to the target. ?Tissue cores were obtained. ?Digital specimen radiography showed calcifications within some of the cores. ?A BAR shaped tissue marker clip was deployed through the needle, and the needle was withdrawn. Post biopsy mammogram confirmed the clip at the biopsy site. Recommendation:Pend ing pathology results - Right tissue sampling of the amorphous calcifications in the lower inner right breast, middle depth, 9 cm from the nipple. BI-RADS 4B. BAR-shaped clip. Short interval follow-up, as below. There are grouped 2 mm punctate calcifications in the right breast at 6 o'clock, middle depth, 6 cm from the nipple; best seen on RML image 36 of 72, RCC image 18 of 57, and the magnified views. ?Short interval follow-up mammogram may be obtained in 6 months to document stability. However, if the biopsy of the calcifications in the lower inner quadrant, 9 cm from the nipple (the biopsy which was performed earlier today) shows a surgical lesion, then tissue sampling of these calcifications may also be considered. BI-RADS 3.? IGinger MD, personally reviewed the study and agree with the resident's/fellow's report.IGinger MD as teaching physician, was present during either the entire procedure and/or during the gonzalez components. BI DIAGNOSTIC Examination:BI [facility] TOMOSYNTHESIS 6 ULTRASOUND BREAST [facility] BILATERAL 19:43:03 COMPLETE Branch BILATERALBI DIAGNOSTIC TOMOSYNTHESIS BILATERAL History:Patient is 55 year old and is seen for: ?Mass noted in left breast. ? Comparisons : None available Findings:The breasts have scattered areas of fibroglandular density. LeftBI DIAGNOSTIC TOMOSYNTHESIS BILATERALThere is an irregular mass seen in the left breast at 8 o'clock, 6 cm from the nipple; adjacent to the palpable marker. ?This is best seen on LLM image 10 of 56 and LSCC image 1 of 48. A prominent appearing left axillary lymph node is identified. BI ULTRASOUND BREAST COMPLETE BILATERALSurvey ultrasound of the left breast left axilla was performed. There is a 21 mm x 17 mm x 32 mm irregularly shaped, non-parallel mass seen in the left breast at 8 o'clock, 6 cm from the nipple. Associated increased vascularity is identified. This correlates with the mammographic findings. There is a single round level I axillary lymph node with loss of the normal fatty hilum measuring 18 x 13 x 17 mm. At least 3 normal-appearing level I axillary lymph nodes are also identified. There is no lymphadenopathy in the infraclavicular, supraclavicular, and internal mammary chain regions. RightBI DIAGNOSTIC TOMOSYNTHESIS BILATERALThere are 9 mm amorphous calcifications in a grouped distribution seen in the lower inner quadrant of the right breast in the middle depth, 9 cm from the nipple. This is best seen on RCC view 6 of 57, RML view 56 of 72, and the magnified views. There are grouped 2 mm punctate calcifications in the right breast at 6 o'clock in the middle depth, 6 cm from the nipple. BI ULTRASOUND BREAST COMPLETE BILATERALSurvey ultrasound of the right breast and right axilla was performed. No suspicious masses are identified in the right breast. No sonographic correlate is identified for the calcifications noted in the lower inner quadrant of the right breast, 9 cm from the nipple or for the calcifications noted at 6:00, 6 cm from the nipple. The remainder of the right breast right axillary ultrasound is unremarkable. Impression:Left: 1. There is a 32 mm irregularly shaped palpable mass in the left breast at 8 o'clock, 6 cm from the nipple; this correlates with the mammographic findings best seen on best seen on LLM image 10 of 56 and LSCC image 1 of 48. ?Ultrasound-guided core biopsy is recommended. BI-RADS 5. 2. There is a single 18 mm round level I axillary lymph node with loss of the normal fatty hilum; best seen on ultrasound images 9 - 19 of 55. Ultrasound-guided core biopsy is recommended. BI-RADS 5. Right: 3. There are 9 mm amorphous calcifications in a grouped distribution seen in the lower inner quadrant of the right breast, middle depth, 9 cm from the nipple; best seen on RCC view 6 of 57, RML view 56 of 72, and the magnified views. Upright stereotactic core biopsy is recommended; consider a medial or superior approach. Due to patient body habitus, an inferior approach may prove limited. BI-RADS 4B. 4. There are grouped 2 mm punctate calcifications in the right breast at 6 o'clock, middle depth, 6 cm from the nipple; best seen on RML image 36 of 72, RCC image 18 of 57, and the magnified views. Short interval follow-up mammogram may be obtained in 6 months to document stability. However, if the biopsy of the calcifications in the lower inner quadrant, 9 cm from the nipple (please see #3 above) shows a surgical lesion then tissue sampling of these calcifications may also be considered. BI-RADS 3. Recommendation:Ultr asound guided core biopsy - LeftUltrasound guided core biopsy - LeftUpright stereotactic biopsy - RightShort interval follow-up mammogram 6 months - Right ? BI-RADS Category: Left 5 - Highly Suggestive of MalignancyRight 4B - Suspicious Abnormality - Biopsy Should Be Considered - Moderate Suspicion for Malignancy BI ULTRASOUND Examination:BI [facility] BREAST COMPLETE 6 ULTRASOUND BREAST [facility] BILATERAL 19:43:02 COMPLETE Branch BILATERALBI DIAGNOSTIC TOMOSYNTHESIS BILATERAL History:Patient is 55 year old and is seen for: ?Mass noted in left breast. ? Comparisons : None available Findings:The breasts have scattered areas of fibroglandular density. LeftBI DIAGNOSTIC TOMOSYNTHESIS BILATERALThere is an irregular mass seen in the left breast at 8 o'clock, 6 cm from the nipple; adjacent to the palpable marker. ?This is best seen on LLM image 10 of 56 and LSCC image 1 of 48. A prominent appearing left axillary lymph node is identified. BI ULTRASOUND BREAST COMPLETE BILATERALSurvey ultrasound of the left breast left axilla was performed. There is a 21 mm x 17 mm x 32 mm irregularly shaped, non-parallel mass seen in the left breast at 8 o'clock, 6 cm from the nipple. Associated increased vascularity is identified. This correlates with the mammographic findings. There is a single round level I axillary lymph node with loss of the normal fatty hilum measuring 18 x 13 x 17 mm. At least 3 normal-appearing level I axillary lymph nodes are also identified. There is no lymphadenopathy in the infraclavicular, supraclavicular, and internal mammary chain regions. RightBI DIAGNOSTIC TOMOSYNTHESIS BILATERALThere are 9 mm amorphous calcifications in a grouped distribution seen in the lower inner quadrant of the right breast in the middle depth, 9 cm from the nipple. This is best seen on RCC view 6 of 57, RML view 56 of 72, and the magnified views. There are grouped 2 mm punctate calcifications in the right breast at 6 o'clock in the middle depth, 6 cm from the nipple. BI ULTRASOUND BREAST COMPLETE BILATERALSurvey ultrasound of the right breast and right axilla was performed. No suspicious masses are identified in the right breast. No sonographic correlate is identified for the calcifications noted in the lower inner quadrant of the right breast, 9 cm from the nipple or for the calcifications noted at 6:00, 6 cm from the nipple. The remainder of the right breast right axillary ultrasound is unremarkable. Impression:Left: 1. There is a 32 mm irregularly shaped palpable mass in the left breast at 8 o'clock, 6 cm from the nipple; this correlates with the mammographic findings best seen on best seen on LLM image 10 of 56 and LSCC image 1 of 48. ?Ultrasound-guided core biopsy is recommended. BI-RADS 5. 2. There is a single 18 mm round level I axillary lymph node with loss of the normal fatty hilum; best seen on ultrasound images 9 - 19 of 55. Ultrasound-guided core biopsy is recommended. BI-RADS 5. Right: 3. There are 9 mm amorphous calcifications in a grouped distribution seen in the lower inner quadrant of the right breast, middle depth, 9 cm from the nipple; best seen on RCC view 6 of 57, RML view 56 of 72, and the magnified views. Upright stereotactic core biopsy is recommended; consider a medial or superior approach. Due to patient body habitus, an inferior approach may prove limited. BI-RADS 4B. 4. There are grouped 2 mm punctate calcifications in the right breast at 6 o'clock, middle depth, 6 cm from the nipple; best seen on RML image 36 of 72, RCC image 18 of 57, and the magnified views. Short interval follow-up mammogram may be obtained in 6 months to document stability. However, if the biopsy of the calcifications in the lower inner quadrant, 9 cm from the nipple (please see #3 above) shows a surgical lesion then tissue sampling of these calcifications may also be considered. BI-RADS 3. Recommendation:Ultr asound guided core biopsy - LeftUltrasound guided core biopsy - LeftUpright stereotactic biopsy - RightShort interval follow-up mammogram 6 months - Right ? BI-RADS Category: Left 5 - Highly Suggestive of MalignancyRight 4B - Suspicious Abnormality - Biopsy Should Be Considered - Moderate Suspicion for Malignancy
[2021-08-24] MEDS ORDERED: ONDANSETRON 4 MG/2 ML VIAL ONE ×2 (09:29→13:07)
[2021-08-24] MEDS ORDERED: IPRATROPIUM BROM 0.5MG/2.5ML ONE (09:30)
[2021-08-24] MEDS ORDERED: FAMOTIDINE 20 MG/2 ML VIAL IV ONE (09:30)
[2021-08-24] MEDS ORDERED: ALBUTEROL 2.5 MG/3 ML NEB SOL ONE (09:30)
[2021-08-24 09:34] LABS: Absolute Lymphocytes (CBC) 1.4 K/uL (0.7-4.9); Basophils % 0.4 % (0-1.3); Hematocrit 36.5 % (36.0-45.0); Lymphocytes % 12.1 % (15.3-44.8); MPV 7.7 fL (7.6-11.3); RBC Red Blood Cell Count 3.96 M/uL (3.86-4.86)
[2021-08-24 09:39] LABS: Protime INR 1.03
[2021-08-24 09:53] LABS: ALT/SGPT 36 U/L (12-78); AST/SGOT 12 U/L (15-37); Albumin 2.6 g/dL (3.4-5.0); Alkaline Phosphatase 73 U/L (45-117); BUN Blood Urea Nitrogen 13 mg/dL (7-18); Bicarbonate 33 mmol/L (21-32); Bilirubin Direct < 0.1 mg/dL (0-0.2); Bilirubin Total 0.3 mg/dL (0.2-1.0); Glucose Level 86 mg/dL (74-106); Lipase 82 U/L (73-393); Potassium 3.7 mmol/L (3.5-5.1); Protein, Total 6.7 g/dL (6.4-8.2); Sodium Level 140 mmol/L (136-145)
[2021-08-24 09:57] LABS: Magnesium 2.3 mg/dL (1.8-2.4); NT PRO-BNP 31 pg/mL (<125); Troponin (Emerg Dept Use Only) < 0.02 ng/mL (0.0-0.045)
--- NOTE | 2021-08-24 10:49 | RAD REPORT ---
EXAM DESCRIPTION: CT - Chest For Pe Angio - 08/24/2021 10:34 am CLINICAL HISTORY: Chest pain COMPARISON: 2019 TECHNIQUE: Dynamically enhanced axial 3 mm thick images of the chest were obtained during administra tion of <100> mL Isovue 370 IV contrast. Coronal and oblique reconstruction images were generated and reviewed. Exam utilizes a protocol for optimal evaluation of pulmonary arterial tree. Maximum intensity projections 3D imaging was utilized All CT scans are performed using dose optimization technique as appropriate and may include automated exposure control or mA/KV adjustment according to patient size. FINDINGS: A pulmonary embolus is not seen. A thoracic aortic aneurysm is not noted. A pleural effusion is not seen. A pericardial effusion is not seen. Moderate tree-in-bud opacities within the lungs. 11 millimeter nodule right lobe thyroid gland IMPRESSION: Negative for a pulmonary embolism. Moderate tree-in-bud opacities within the lungs may indicate an atypical pneumonia
--- NOTE | 2021-08-24 10:58 | RAD REPORT ---
EXAM DESCRIPTION: CT - Abdomen Pelvis W Contrast - 08/24/2021 10:34 am CLINICAL HISTORY: Abdominal pain COMPARISON: none. TECHNIQUE: Computed axial tomography of the abdomen pelvis was obtained. 100 cc Isovue-300 was admin istered intravenously. Oral contrast was not requested which limits evaluation of bowel. All CT scans are performed using dose optimization technique as appropriate and may include automated exposure control or mA/KV adjustment according to patient size. FINDINGS: The liver contains several tiny low-density lesions which are too small to characterize bu t probably are benign. Spleen, pancreas, adrenal and kidneys appear unremarkable. There is no evidence of diverticulitis. A moderate amount stool within the colon IMPRESSION: The liver contains several tiny low-density lesions which are too small to characterize but probably are benign. Follow up ultrasound in 3 months is recommended for re-evaluation Moderate amount stool within the colon
--- NOTE | 2021-08-24 10:59 | RAD REPORT ---
EXAM DESCRIPTION: Jo Single View08/24/2021 10:14 am CLINICAL HISTORY: sob COMPARISON: 2019 FINDINGS: Moderate bilateral reticulonodular lung opacities. The heart is normal size A central venous catheter has its tip in the proximal superior vena cava. IMPRESSION: Moderate bilateral reticulonodular lung opacities may indicate an atypical infection
[2021-08-24] MEDS ORDERED: METHYLPREDNISOLONE 125 MG INJ ONE (12:02)
[2021-08-24] MEDS ORDERED: LEVALBUTEROL 1.25 MG/3 ML NEB ONE (12:02)
--- NOTE | 2021-08-24 13:42 | EDPHYS ---
Physician Documentation [facility] Name: Martha Riojas Age: 55 yrs Sex: Female : 1965 Arrival Date: 08/24/2021 Time: 08:34 Bed 4 Private MD: ED Physician Juan José Roger HPI: 08/24 09:21 This 55 yrs old Black Female presents to ER via Ambulatory with complaints of kdr Nausea/Vomiting, Epigastric Pain. 09:21 The patient presents to the emergency department with nausea, that is mild, that is kdr moderate, vomiting, that is intermittent, abdominal pain, of the abdomen diffusely. Onset: The symptoms/episode began/occurred The patient is currently receiving intermittent chemotherapy for breast cancer. Subsequent to the chemotherapy she has periods of nausea vomiting and generally feeling poorly.. Possible causes: Chemotherapy. The symptoms are aggravated by nothing. The symptoms are alleviated by nothing. Associated signs and symptoms: Pertinent positives: abdominal pain, nausea, vomiting. Severity of symptoms: At their worst the symptoms were mild just prior to arrival, in the emergency department the symptoms are unchanged. The patient has not experienced similar symptoms in the past. The patient has been recently seen by a physician:. Patient was diagnosed with breast cancer in February of this year. Since then she has had intermittent chemotherapy. She has had some difficulty tolerating the infusions and has subsequently had some of her treatments delayed until she felt better. She recently had another infusion and has subsequently been feeling poorly. She is receiving treatment at [facility]. They instructed her to come to the ED if she was feeling poorly and getting dehydrated. Additionally she has a history of asthma and although she is allergic to steroids, she has had intermittent steroids to aid in her breathing. 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 - Social history:: Smoking status: Patient denies any tobacco usage or history of. ROS: 09:21 Constitutional: Negative for fever, chills, and weight loss, Eyes: Negative for injury, kdr pain, redness, and discharge, Neck: Negative for injury, pain, and swelling, Cardiovascular: Negative for chest pain, palpitations, and edema, Back: Negative for injury and pain, : Negative for injury, bleeding, discharge, and swelling, MS/Extremity: Negative for injury and deformity, she has had swelling to the left upper extremity secondary to her prior lymph node ectomy from her breast surgery and cancer Skin: Negative for injury, rash, and discoloration, Neuro: Negative for headache, weakness, numbness, tingling, and seizure activity. Psych: Negative for depression, anxiety, suicide ideation, homicidal ideation, and hallucinations, Allergy/Immunology: Negative for hives, rash, and allergies, Endocrine: Negative for neck swelling, polydipsia, polyuria, polyphagia, and marked weight changes, Hematologic/Lymphatic: Negative for swollen nodes, abnormal bleeding, and unusual bruising. 09:21 Respiratory: Positive for cough, with no reported sputum, dyspnea on exertion, shortness of breath, on exertion. wheezing. 09:21 Abdomen/GI: Positive for abdominal pain, nausea and vomiting. Exam: 09:21 Constitutional: This is a well developed, well nourished patient who is awake, alert, kdr and in no acute distress. Head/Face: Normocephalic, atraumatic. Eyes: Pupils equal round and reactive to light, extra-ocular motions intact. Lids and lashes normal. Conjunctiva and sclera are non-icteric and not injected. Cornea within normal limits. Periorbital areas with no swelling, redness, or edema. Neck: Trachea midline, no thyromegaly or masses palpated, and no cervical lymphadenopathy. Supple, full range of motion without nuchal rigidity, or vertebral point tenderness. No Meningismus. Chest/axilla: Normal chest wall appearance and motion. Nontender with no deformity. No lesions are appreciated. Cardiovascular: Regular rate and rhythm with a normal S1 and S2. No gallops, murmurs, or rubs. Normal PMI, no JVD. No pulse deficits. Back: No spinal tenderness. No costovertebral tenderness. Full range of motion. Skin: Warm, dry with normal turgor. Normal color with no rashes, no lesions, and no evidence of cellulitis. MS/ Extremity: Pulses equal, no cyanosis. Neurovascular intact. Full, normal range of motion. Neuro: Awake and alert, GCS 15, oriented to person, place, time, and situation. Cranial nerves II-XII grossly intact. Motor strength 5/5 in all extremities. Sensory grossly intact. Cerebellar exam normal. Normal gait. Psych: Awake, alert, with orientation to person, place and time. Behavior, mood, and affect are within normal limits. 09:21 Respiratory: mild respiratory distress is noted, Breath sounds: rales, bronchial sounds, wheezin:21 Abdomen/GI: Inspection: obese Palpation: soft, mild abdominal tenderness, in all quadrants. 09:21 ECG was reviewed by the Attending Physician. kdr Vital Signs: 08:41 Pulse 93; Resp 18; Temp 97.3(T); Pulse Ox 86% on R/A; Weight 81.65 kg; Height 5 ft. 3 ww in. (160.02 cm); Pain 10/10; 08:41 BP 146 / 76; ww 09:30 BP 139 / 80; Pulse 93; Resp 19; Pulse Ox 97% on 2 lpm NC; bp 10:43 BP 146 / 86; Pulse 95; Resp 19; Pulse Ox 98% ; bp 11:33 BP 140 / 84; Pulse 96; Resp 17; Pulse Ox 98% ; bp 12:00 BP 143 / 75; Pulse 88; Resp 19; Pulse Ox 99% ; bp 13:00 BP 130 / 74; Pulse 96; Resp 17; Pulse Ox 99% ; bp 13:54 BP 133 / 71; Pulse 95; Resp 17; Pulse Ox 99% ; bp 14:07 BP 131 / 74; Pulse 80; Resp 17; Pulse Ox 99% ; bp 08:41 Body Mass Index 31.89 (81.65 kg, 160.02 cm) ww MDM: 09:21 Data reviewed: vital signs, nurses notes, lab test result(s), radiologic studies. kdr 13:42 Patient medically screened. kdr 13:45 ED course: Was greatly improved with the interventions given. I reviewed all of the lab kdr results with the patient and family. She was happy with the care provided and the plan for discharge and follow-up. I also discussed the case with Dr. Garcia and he recommended doxycycline for antibiotic coverage on discharge. 08/24 09:00 Order name: Basic Metabolic Panel; Complete Time: 10:32 kdr 12 09:00 Order name: CBC with Diff; Complete Time: 10:32 kdr 12 09:00 Order name: Hepatic Function; Complete Time: 10:32 kdr 08/24 09:00 Order name: Lipase; Complete Time: 10:32 kdr 08/24 09:10 Order name: Magnesium; Complete Time: 10:32 kdr 08/24 09:10 Order name: NT PRO-BNP; Complete Time: 10:32 kdr 08/24 09:10 Order name: PT-INR; Complete Time: 10:32 kdr 08/24 09:10 Order name: Troponin (emerg Dept Use Only); Complete Time: 10:32 kdr 08/24 09:10 Order name: XRAY Chest (1 view); Complete Time: 11:12 kdr 08/24 09:10 Order name: D-Dimer; Complete Time: 10:32 kdr 08/24 09:11 Order name: CT Chest For PE Angio; Complete Time: 11:12 kdr 08/24 09:43 Order name: CT Abd/Pelvis - IV Contrast Only; Complete Time: 11:12 kdr 08/24 09:00 Order name: IV Saline Lock; Complete Time: 09:41 kdr 08/24 09:00 Order name: Labs collected and sent; Complete Time: 09:41 kdr 08/24 09:10 Order name: EKG; Complete Time: 09:11 kdr 08/24 09:10 Order name: Cardiac monitoring; Complete Time: 09:40 kdr 08/24 09:10 Order name: EKG - Nurse/Tech; Complete Time: 09:40 kdr 08/24 09:10 Order name: O2 Per Protocol; Complete Time: 09:40 kdr 08/24 09:10 Order name: O2 Sat Monitoring; Complete Time: 09:40 kdr 08/24 11:47 Order name: PO challenge; Complete Time: 12:09 kdr EC:21 Rate is 83 beats/min. Rhythm is regular, Sinus Rhythm with No ectopy. QRS [place] is kdr Normal. [place] interval is normal. QRS interval is normal. Clinical impression: NSR w/ Non-specific ST/T Changes. Administered Medications: 09:30 Drug: Zofran (Ondansetron) 4 mg Route: IVP; Site: Port-a-cath; bp 11:34 Follow up: Response: Nausea is decreased bp 09:30 Drug: Pepcid (famotidine) 20 mg Route: IVP; Site: Port-a-cath; bp 11:35 Follow up: Response: Nausea is decreased bp 09:30 Drug: Albuterol - atroVENT (ipratropium) (3:1) (2.5 mg - 0.5 mg) 3 ml Route: Nebulizer; bp 11:34 Follow up: Response: No adverse reaction; Marked relief of symptoms bp 12:05 Drug: SOLU-Medrol (methylPrednisoLONE) 125 mg Route: IVP; Site: Port-a-cath; bp 12:43 Follow up: Response: No adverse reaction bp 12:05 Drug: Xopenex (levalbuterol) (3) 1.25 mg Route: Inhalation; bp 13:10 Drug: Zofran (Ondansetron) 4 mg Route: IVP; Site: Port-a-cath; bp 13:25 Follow up: Response: Nausea is decreased bp Disposition Summary: 08/24/21 13:42 Discharge Ordered Location: Home kdr Problem: new kdr Symptoms: have improved kdr Condition: Stable kdr Diagnosis - Shortness of breath kdr - Nausea kdr - Cough kdr - Unspecified bacterial pneumonia kdr Followup: kdr - With: Private Physician - When: 2 - 3 days - Reason: If symptoms return, Further diagnostic work-up, Recheck today's complaints, Continuance of care, Re-evaluation by your physician Discharge Instructions: - Discharge Summary Sheet kdr - Nausea, Adult kdr - Community-Acquired Pneumonia, Adult kdr - Shortness of Breath, Adult, [id number] kdr - Cough, Adult, [id number] kdr Forms: - Medication Reconciliation Form kdr - Thank You Letter kdr - Antibiotic Education kdr Prescriptions: - Doxycycline Hyclate 100 mg Oral Tablet - take 1 tablet by ORAL route every 12 hours; 20 tablet; Refills: 0, Product kdr Selection Permitted Signatures: Dispatcher [employer] EDJuan José Matias MD MD kdr Bakari Ashley RN RN bp Wood, Whitney, RN RN ww Corrections: (The following items were deleted from the chart) 08:45 08:44 PMHx: Diabetes - IDDM; 08:45 08:44 PMHx: CVA; 08:45 08:44 PMHx: Myocardial infarction; ww 08:45 08:44 PMHx: CHF; 08:45 08:44 PMHx: COPD; 08:45 08:44 PMHx: Hypertension; ww ww
--- NOTE | 2021-08-24 13:42 | ER ---
Nurse's Notes [facility] Name: Martha Riojas Age: 55 yrs Sex: Female : 1965 Arrival Date: 08/24/2021 Time: 08:34 Bed 4 Private MD: Diagnosis: Shortness of breath;Nausea;Cough;Unspecified bacterial pneumonia Presentation: 08/24 08:41 Chief complaint: Patient states: Shortness of breath, fatigue, nausea and burning upper ww quadrant abdominal pain that started last week after her chemo treatment. Coronavirus screen: Vaccine status: Patient reports receiving the 2nd dose of the covid vaccine. Ebola Screen: Patient negative for fever greater than or equal to 101.5 degrees Fahrenheit, and additional compatible Ebola Virus Disease symptoms Patient denies exposure to infectious person. Patient denies travel to an Ebola-affected area in the 21 days before illness onset. Initial Sepsis Screen: Does the patient meet any 2 criteria? No. Patient's initial sepsis screen is negative. Does the patient have a suspected source of infection? No. Patient's initial sepsis screen is negative. Risk Assessment: Do you want to hurt yourself or someone else? Patient reports no desire to harm self or others. Onset of symptoms was August 17, 2021. 08:41 Method Of Arrival: Ambulatory ww 08:41 Acuity: SOL 3 ww Triage Assessment: 08:44 General: Appears uncomfortable, well developed, well nourished, Behavior is calm, ww cooperative, appropriate for age. Pain: Complains of pain in abdomen Quality of pain is described as burning. EENT: No deficits noted. No signs and/or symptoms were reported regarding the EENT system. Neuro: No deficits noted. Level of Consciousness is awake, alert, obeys commands, Oriented to person, place, time, situation, Appropriate for age Speech is normal. Cardiovascular: Reports shortness of breath, Capillary refill < 3 seconds. Respiratory: Reports shortness of breath cough that is Airway is patent Respiratory effort is even, unlabored, Respiratory pattern is regular, symmetrical. GI: Abdomen is tender to palpation in epigastric area Reports upper abdominal pain, nausea, vomiting. : No deficits noted. No signs and/or symptoms were reported regarding the genitourinary system. Derm: No deficits noted. No signs and/or symptoms reported regarding the dermatologic system. Skin is dry, Skin is pink, warm \T\ dry. Skin temperature is warm. Musculoskeletal: No deficits noted. No signs and/or symptoms reported regarding the musculoskeletal system. 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 - Social history:: Smoking status: Patient denies any tobacco usage or history of. Screenin:44 Abuse screen: Denies threats or abuse. Denies injuries from another. Nutritional bp screening: No deficits noted. Tuberculosis screening: No symptoms or risk factors identified. Fall Risk None identified. Assessment: 08:45 General: SEE TRIAGE NOTE. bp 10:41 Reassessment: No changes from previously documented assessment. Patient and/or family bp updated on plan of care and expected duration. Pain level reassessed. PT RETURNED FROM CT. 11:33 Reassessment: No changes from previously documented assessment. Patient and/or family bp updated on plan of care and expected duration. Pain level reassessed. GI: Abdomen is non-distended, obese, Bowel sounds present X 4 quads. Vital Signs: 08:41 Pulse 93; Resp 18; Temp 97.3(T); Pulse Ox 86% on R/A; Weight 81.65 kg; Height 5 ft. 3 ww in. (160.02 cm); Pain 10/10; 08:41 BP 146 / 76; ww 09:30 BP 139 / 80; Pulse 93; Resp 19; Pulse Ox 97% on 2 lpm NC; bp 10:43 BP 146 / 86; Pulse 95; Resp 19; Pulse Ox 98% ; bp 11:33 BP 140 / 84; Pulse 96; Resp 17; Pulse Ox 98% ; bp 12:00 BP 143 / 75; Pulse 88; Resp 19; Pulse Ox 99% ; bp 13:00 BP 130 / 74; Pulse 96; Resp 17; Pulse Ox 99% ; bp 13:54 BP 133 / 71; Pulse 95; Resp 17; Pulse Ox 99% ; bp 14:07 BP 131 / 74; Pulse 80; Resp 17; Pulse Ox 99% ; bp 08:41 Body Mass Index 31.89 (81.65 kg, 160.02 cm) ED Course: 08:34 Patient arrived in ED. as 08:34 Juan José Roger MD is Attending Physician. kdr 08:44 Triage completed. ww 08:44 Arm band placed on right wrist. ww 08:45 Accessed Port-a-Cath. using accessed w/ #19 Woods needle, Clean \T\ dry. Dressing intact. bp Good blood return. Flushes easily. 08:51 Patient placed in an exam room, on a stretcher. ll1 08:59 Bakari Ashley, RN is Primary Nurse. bp 10:14 XRAY Chest (1 view) In Process Unspecified. EDMS 10:34 CT Chest For PE Angio In Process Unspecified. EDMS 10:34 CT Abd/Pelvis - IV Contrast Only In Process Unspecified. EDMS 10:44 Patient has correct armband on for positive identification. Bed in low position. Call bp light in reach. Side rails up X2. 14:10 No provider procedures requiring assistance completed. Patient transferred, IV remains bp in place. intact, bleeding controlled, No redness/swelling at site. Pressure dressing applied. Administered Medications: 09:30 Drug: Zofran (Ondansetron) 4 mg Route: IVP; Site: Port-a-cath; bp 11:34 Follow up: Response: Nausea is decreased bp 09:30 Drug: Pepcid (famotidine) 20 mg Route: IVP; Site: Port-a-cath; bp 11:35 Follow up: Response: Nausea is decreased bp 09:30 Drug: Albuterol - atroVENT (ipratropium) (3:1) (2.5 mg - 0.5 mg) 3 ml Route: Nebulizer; bp 11:34 Follow up: Response: No adverse reaction; Marked relief of symptoms bp 12:05 Drug: SOLU-Medrol (methylPrednisoLONE) 125 mg Route: IVP; Site: Port-a-cath; bp 12:43 Follow up: Response: No adverse reaction bp 12:05 Drug: Xopenex (levalbuterol) (3) 1.25 mg Route: Inhalation; bp 13:10 Drug: Zofran (Ondansetron) 4 mg Route: IVP; Site: Port-a-cath; bp 13:25 Follow up: Response: Nausea is decreased bp Output: 11:40 Urine: 400ml (Voided); Total: 400ml. bp Outcome: 13:42 Discharge ordered by MD. kdr 14:14 Discharged to home via wheelchair, with family. bp 14:14 Condition: stable 14:14 Instructed on discharge instructions, follow up and referral plans. medication usage. 14:53 Patient left the ED. bp Signatures: Dispatcher [employer] EDMS Juan José Roger MD MD kdr Martinez, Amelia as Peltier, Brian, RN RN bp Kala Espinoza RN RN [facility] Rhea Hay RN RN Corrections: (The following items were deleted from the chart) 08:45 08:44 PMHx: Diabetes - IDDM; 08:44 PMHx: CVA; 08:44 PMHx: Myocardial infarction; 45 08:44 PMHx: CHF; 0845 08:44 PMHx: COPD; 0845 08:44 PMHx: Hypertension; ww 10:43 10:41 BP 139 / 80; Pulse 93bpm; Resp 19bpm; Pulse Ox 97% 2 lpm Nasal Cannula; bp bp
[2021-08-24] MEDS ORDERED: DOXYCYCLINE 100 MG CAP PO ONE (13:59)
[2021-08-24] MEDS ORDERED: HEPARIN 500 UNIT/5 ML SYR IV ONE (14:01)
[2021-08-24 15:01] VITALS: TEMP 97.3
[2021-08-24 15:14] VITALS: O2SAT 99
[2021-08-24 15:21] VITALS: BP 131/74
--- NOTE | 2021-08-25 10:21 | EKG ---
Test Date: 2021-08-24 Test Time: 09:02:32 Pricer: HOLLY MEASUREMENT RESULTS: Intervals: Rate: 83 GA: 122 QRSD: 80 QT: 340 QTc: 399 [place]: P: 76 GA: 122 QRS: 68 T: 66 INTERPRETIVE STATEMENTS: Normal sinus rhythm Right atrial enlargement Nonspecific ST and T wave abnormality Abnormal ECG Compared to ECG 01/16/2019 10:41:44 Atrial abnormality now present ST (T wave) deviation now present Electronically Signed On 08-25-21 10:19:39 [employer] by Singh Lees
== END 2021-08-24 14:53 | disposition home or self-care (01) ==
LOC: ER 08:32
DX: J15.9 Unspecified bacterial pneumonia (principal); R06.02 Shortness of breath; R05.9 Cough, unspecified; C50.912 Malignant neoplasm of unspecified site of left female breast
CPT/HCPCS: 93005; 85025; 80048; 36415; 83735; 85610; 85379; 80076; 84484; 83690; 83880; 71275; 74177; 71045; 94640; 96375; 96374; 99284; Q9967; J1642; J2930; J2405 ×2

== ENCOUNTER 2021-09-08 10:36 | Observation (INO) | payer OTHER ==
--- OUTSIDE RECORDS SUMMARY | 2021-09-08 10:40 | XMS REPORT | Clinical Summary ---
:1965 Author Organization [facility] MD [facility] Address [address] [place] [address] Care Team Providers Name Role Phone Corky Juárez MD Unavailable Allergies Not on File Medications Not on file Active Problems Not on file Encounters Date Type Specialty Care Team Description 02/02/2021 Telephone Breast Medical Oncology Vanesa Rockwell, RN after 09/08/2020 Social History Tobacco Use Types Packs/Day Years Used Date Never Assessed Sex Assigned at Date Recorded Not on file Job Start Date Occupation Industry Not on file Not on file Not on file Last Filed Vital Signs Not on file Plan of Treatment Not on file Results Not on fileafter 09/08/2020 Insurance Payer Benefit Plan / Subscriber ID Effective Phone Address T ype Group Dates HUMANA MEDICARE HUMANA GOLD PLUS [id number] 2019-Pres [address] Medicare MEDICARE HMO [place] [address] [place] [address] [place] [id number] 2021-Pres [address] Medicaid 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
--- OUTSIDE RECORDS SUMMARY | 2021-09-08 10:41 | XMS REPORT | Continuity of Care Document ---
:1965 Author Organization [facility] t Address [address] [place] [place] [address] Care Team Providers Name Role Phone GUTIERREZ Primary Care Physician Unavailable Dexter SHELLEY Attending Clinician Unavailable Stacey FARLEY Attending Clinician Unavailable Corky CLEMONS Attending Clinician Unavailable ABIMAEL HARRIS Attending Clinician Unavailable Doctor Unassigned, Name Attending Clinician Unavailable Dexter Alexander Attending Clinician Moiz MCNEILL Attending Clinician Unavailable FERMÍN Attending Clinician Unavailable Corky ROMAN Attending Clinician Unavailable Corky CLEMONS Admitting Clinician Unavailable Payers Payer Name Policy Policy Number Effective Expiration Source Type Date Date [id number] 2019 00:00:00 [facility] [id number] 2020 00:00:00 HUMANA MEDICAREHUMANA [id number] 2019 MD Wale DENNEY PLUS MEDICARE 00:00:00 [id number] 2019-Pr esentPO [address] [place] [id number] [place] [id number] 2021 MD Anderso n TRADITIONALMEDICAID [place] 00:00:00 TRADITIONAL STAR PLUS [id number] 2020-Pr [id number], [place] [address]Medicaid Problems Condition Condition Condition Status Onset Resolution Last Treating Co mments Source Name Details Category Date Date Treatment Clinician Date No known No known Disease Unive rs active active ity of problems problems [facility] Allergies, Adverse Reactions, Alerts Allergy Allergy Status Severity Reaction(s) Onset Inactive Treating Comm ents Source Name Type Date Date Clinician NO KNOWN Drug Active Univers ALLERGIE Class ity of S [facility] Social History Social Habit Start Date Stop Date Quantity Comments Source Exposure to Not sure [facility] SARS-CoV-[address] [facility] (event) [place] Tobacco use and 2020-11-30 2020-11-30 Never used Universit y of exposure 00:00:00 00:00:00 [facility] Alcohol intake 2020-11-30 2020-11-30 Ex-drinker [facility] 00:00:00 00:00:00 (finding) [facility] Sex Ass[birth year] At [birth year] MD Godinez on 00:00:00 00:00:00 Smoking Status Start Date Stop Date Source Never smoker [facility] Medications Ordered Filled Start Stop Current Ordering Indication Dosage Frequency Signature Comments Components Source Medication Medication Date Date Medication? Clinician (SIG) Name Name insulin Yes inject Univers lispro 3-24 under the ity of (HUMALOG 15:16: skin. [place] [address] [place] [address] insulin Yes inject Univers lispro 3-24 under the ity of (HUMALOG 15:16: [place]. [place]) [facility] insulin Yes inject Univers lispro 3-24 under the ity of (HUMALOG 15:16: skin. [place] [facility] insulin Yes inject Univers lispro 3-24 under the ity of (HUMALOG 15:16: skin. [place]) [facility] insulin Yes inject Univers lispro 3-24 under the ity of (HUMALOG 15:16: skin. [place]) [facility] insulin Yes inject Univers lispro 3-24 under the ity of (HUMALOG 15:16: skin. [place]) [address] [place] [address] insulin 2021-0 Yes inject Univers lispro 3-24 under the ity of (HUMALOG 15:16: skin. [place]) [facility] insulin 0 Yes inject Univers lispro 3-24 under the ity of (HUMALOG 15:16: skin. [place]) [facility] insulin 0 Yes inject Univers lispro 3-24 under the ity of (HUMALOG 15:16: skin. [place]) [facility] insulin Yes inject Univers lispro 3-24 under the ity of (HUMALOG 15:16: skin. [place]) [facility] insulin 0 Yes inject Univers lispro 3-24 under the ity of (HUMALOG 15:16: skin. [place]) [facility] insulin Yes inject Univers lispro 3-24 under the ity of (HUMALOG 15:16: skin. [place]) 19 [facility] insulin Yes inject Univers lispro 3-24 under the ity of (HUMALOG 15:16: skin. [place]) 19 [facility] insulin Yes inject Univers lispro 3-24 under the ity of (HUMALOG 15:16: skin. [place]) 19 [facility] insulin Yes inject Univers lispro 3-24 under the ity of (HUMALOG 15:16: skin. [place]) [facility] insulin 0 Yes inject Univers lispro 3-24 under the ity of (HUMALOG 15:16: skin. [place]) 19 [facility] insulin Yes inject Univers lispro 3-24 under the ity of (HUMALOG 15:16: skin. [place]) 19 [facility] predniSONE 0 Yes 20mg Take 20 mg U nivers 10 mg 3-24 by mouth ity of tablet 15:13: daily. [address] furosemide 0 Yes 40mg Take 40 mg U nivers (LASIX) 40 3-24 by mouth ity o f mg tablet 15:13: daily. [address] LISINOPRIL 0 Yes Take by Uni vers ORAL 3-24 mouth. ity of 15:13: [address] amLODIPine Yes 10mg Take 10 mg U nivers 10 mg 3-24 by mouth ity of tablet 15:13: daily. [address] CARVEDILOL 2021-0 Yes Take by Uni vers ORAL 3-24 mouth. ity of 15:13: [address] predniSONE 2021-0 Yes 20mg Take 20 mg U nivers 10 mg 3-24 by mouth ity of tablet 15:13: daily. [address] furosemide 2021-0 Yes 40mg Take 40 mg U nivers (LASIX) 40 3-24 by mouth ity o f mg tablet 15:13: daily. [address] LISINOPRIL 2021-0 Yes Take by Uni vers ORAL 3-24 mouth. ity of 15:13: [address] amLODIPine 2021-0 Yes 10mg Take 10 mg U nivers 10 mg 3-24 by mouth ity of tablet 15:13: daily. [address] CARVEDILOL 2021-0 Yes Take by Uni vers ORAL 3-24 mouth. ity of 15:13: [address] predniSONE 2021-0 Yes 20mg Take 20 mg U nivers 10 mg 3-24 by mouth ity of tablet 15:13: daily. [address] furosemide 1-0 Yes 40mg Take 40 mg U nivers (LASIX) 40 3-24 by mouth ity o f mg tablet 15:13: daily. [address] LISINOPRIL 2021-0 Yes Take by Uni vers ORAL 3-24 mouth. ity of 15:13: [address] amLODIPine 1-0 Yes 10mg Take 10 mg U nivers 10 mg 3-24 by mouth ity of tablet 15:13: daily. [address] CARVEDILOL 2021-0 Yes Take by Uni vers ORAL 3-24 mouth. ity of 15:13: [address] predniSONE 2021-0 Yes 20mg Take 20 mg U nivers 10 mg 3-24 by mouth ity of tablet 15:13: daily. [address] furosemide 2021-0 Yes 40mg Take 40 mg U nivers (LASIX) 40 3-24 by mouth ity o f mg tablet 15:13: daily. [address] LISINOPRIL 2021-0 Yes Take by Uni vers ORAL 3-24 mouth. ity of 15:13: [address] amLODIPine 2021-0 Yes 10mg Take 10 mg U nivers 10 mg 3-24 by mouth ity of tablet 15:13: daily. [address] CARVEDILOL 2020-0 Yes Take by Uni vers ORAL 3-24 mouth. ity of 15:13: [address] predniSONE 2021-0 Yes 20mg Take 20 mg U nivers 10 mg 3-24 by mouth ity of tablet 15:13: daily. [address] furosemide 2020-0 Yes 40mg Take 40 mg U nivers (LASIX) 40 3-24 by mouth ity o f mg tablet 15:13: daily. [address] LISINOPRIL 2020-0 Yes Take by Uni vers ORAL 3-24 mouth. ity of 15:13: [address] amLODIPine 2020-0 Yes 10mg Take 10 mg U nivers 10 mg 3-24 by mouth ity of tablet 15:13: daily. [address] CARVEDILOL 2020-0 Yes Take by Uni vers ORAL 3-24 mouth. ity of 15:13: [address] predniSONE 1-0 Yes 20mg Take 20 mg U nivers 10 mg 3-24 by mouth ity of tablet 15:13: daily. [address] furosemide 1-0 Yes 40mg Take 40 mg U nivers (LASIX) 40 3-24 by mouth ity o f mg tablet 15:13: daily. [address] LISINOPRIL 2020-0 Yes Take by Uni vers ORAL 3-24 mouth. ity of 15:13: [address] amLODIPine 1-0 Yes 10mg Take 10 mg U nivers 10 mg 3-24 by mouth ity of tablet 15:13: daily. [address] CARVEDILOL 1-0 Yes Take by Uni vers ORAL 3-24 mouth. ity of 15:13: [address] predniSONE 2021-0 Yes 20mg Take 20 mg U nivers 10 mg 3-24 by mouth ity of tablet 15:13: daily. [address] furosemide 2021-0 Yes 40mg Take 40 mg U nivers (LASIX) 40 3-24 by mouth ity o f mg tablet 15:13: daily. [address] LISINOPRIL 2021-0 Yes Take by Uni vers ORAL 3-24 mouth. ity of 15:13: [address] amLODIPine 2021-0 Yes 10mg Take 10 mg U nivers 10 mg 3-24 by mouth ity of tablet 15:13: daily. [address] CARVEDILOL 2020-0 Yes Take by Uni vers ORAL 3-24 mouth. ity of 15:13: [address] predniSONE 1-0 Yes 20mg Take 20 mg U nivers 10 mg 3-24 by mouth ity of tablet 15:13: daily. [address] furosemide 2020-0 Yes 40mg Take 40 mg U nivers (LASIX) 40 3-24 by mouth ity o f mg tablet 15:13: daily. [address] LISINOPRIL 2020-0 Yes Take by Uni vers ORAL 3-24 mouth. ity of 15:13: [address] amLODIPine 2020-0 Yes 10mg Take 10 mg U nivers 10 mg 3-24 by mouth ity of tablet 15:13: daily. [address] CARVEDILOL 2020-0 Yes Take by Uni vers ORAL 3-24 mouth. ity of 15:13: [address] predniSONE 2020-0 Yes 20mg Take 20 mg U nivers 10 mg 3-24 by mouth ity of tablet 15:13: daily. [address] furosemide 2020-0 Yes 40mg Take 40 mg U nivers (LASIX) 40 3-24 by mouth ity o f mg tablet 15:13: daily. [address] LISINOPRIL 2020-0 Yes Take by Uni vers ORAL 3-24 mouth. ity of 15:13: [address] amLODIPine 2020-0 Yes 10mg Take 10 mg U nivers 10 mg 3-24 by mouth ity of tablet 15:13: daily. [address] CARVEDILOL 2020-0 Yes Take by Uni vers ORAL 3-24 mouth. ity of 15:13: [address] predniSONE 1-0 Yes 20mg Take 20 mg U nivers 10 mg 3-24 by mouth ity of tablet 15:13: daily. [address] furosemide 2021-0 Yes 40mg Take 40 mg U nivers (LASIX) 40 3-24 by mouth ity o f mg tablet 15:13: daily. [address] LISINOPRIL 2020-0 Yes Take by Uni vers ORAL 3-24 mouth. ity of 15:13: [address] amLODIPine 2020-0 Yes 10mg Take 10 mg U nivers 10 mg 3-24 by mouth ity of tablet 15:13: daily. [address] CARVEDILOL 2020-0 Yes Take by Uni vers ORAL 3-24 mouth. ity of 15:13: [address] predniSONE 2021-0 Yes 20mg Take 20 mg U nivers 10 mg 3-24 by mouth ity of tablet 15:13: daily. [address] furosemide 2020-0 Yes 40mg Take 40 mg U nivers (LASIX) 40 3-24 by mouth ity o f mg tablet 15:13: daily. [address] LISINOPRIL 2020-0 Yes Take by Uni vers ORAL 3-24 mouth. ity of 15:13: [address] amLODIPine 2020-0 Yes 10mg Take 10 mg U nivers 10 mg 3-24 by mouth ity of tablet 15:13: daily. [address] CARVEDILOL 2020-0 Yes Take by Uni vers ORAL 3-24 mouth. ity of 15:13: [address] predniSONE 2020-0 Yes 20mg Take 20 mg U nivers 10 mg 3-24 by mouth ity of tablet 15:13: daily. [address] furosemide 2020-0 Yes 40mg Take 40 mg U nivers (LASIX) 40 3-24 by mouth ity o f mg tablet 15:13: daily. [address] LISINOPRIL 2020-0 Yes Take by Uni vers ORAL 3-24 mouth. ity of 15:13: [address] amLODIPine 1-0 Yes 10mg Take 10 mg U nivers 10 mg 3-24 by mouth ity of tablet 15:13: daily. [address] CARVEDILOL 2020-0 Yes Take by Uni vers ORAL 3-24 mouth. ity of 15:13: [address] predniSONE 1-0 Yes 20mg Take 20 mg U nivers 10 mg 3-24 by mouth ity of tablet 15:13: daily. [address] furosemide 2021-0 Yes 40mg Take 40 mg U nivers (LASIX) 40 3-24 by mouth ity o f mg tablet 15:13: daily. [address] LISINOPRIL 0 Yes Take by Uni vers ORAL 3-24 mouth. ity of 15:13: [address] amLODIPine 2020-0 Yes 10mg Take 10 mg U nivers 10 mg 3-24 by mouth ity of tablet 15:13: daily. [address] CARVEDILOL 0 Yes Take by Uni vers ORAL 3-24 mouth. ity of 15:13: [address] predniSONE 2020-0 Yes 20mg Take 20 mg U nivers 10 mg 3-24 by mouth ity of tablet 15:13: daily. [address] furosemide 2020-0 Yes 40mg Take 40 mg U nivers (LASIX) 40 3-24 by mouth ity o f mg tablet 15:13: daily. [address] LISINOPRIL 2020-0 Yes Take by Uni vers ORAL 3-24 mouth. ity of 15:13: [address] amLODIPine 2020-0 Yes 10mg Take 10 mg U nivers 10 mg 3-24 by mouth ity of tablet 15:13: daily. [address] CARVEDILOL 0 Yes Take by Uni vers ORAL 3-24 mouth. ity of 15:13: [address] predniSONE 2020-0 Yes 20mg Take 20 mg U nivers 10 mg 3-24 by mouth ity of tablet 15:13: daily. [address] furosemide 2020-0 Yes 40mg Take 40 mg U nivers (LASIX) 40 3-24 by mouth ity o f mg tablet 15:13: daily. [address] LISINOPRIL 2020-0 Yes Take by Uni vers ORAL 3-24 mouth. ity of 15:13: [address] amLODIPine 2020-0 Yes 10mg Take 10 mg U nivers 10 mg 3-24 by mouth ity of tablet 15:13: daily. [address] CARVEDILOL 2020-0 Yes Take by Uni vers ORAL 3-24 mouth. ity of 15:13: [address] predniSONE 1-0 Yes 20mg Take 20 mg U nivers 10 mg 3-24 by mouth ity of tablet 15:13: daily. [address] furosemide 2020-0 Yes 40mg Take 40 mg U nivers (LASIX) 40 3-24 by mouth ity o f mg tablet 15:13: daily. [address] LISINOPRIL 2020-0 Yes Take by Uni vers ORAL 3-24 mouth. ity of 15:13: [address] amLODIPine 2020-0 Yes 10mg Take 10 mg U nivers 10 mg 3-24 by mouth ity of tablet 15:13: daily. [address] CARVEDILOL 0 Yes Take by Uni vers ORAL 3-24 mouth. ity of 15:13: [address] predniSONE 2020-0 Yes 20mg Take 20 mg U nivers 10 mg 3-24 by mouth ity of tablet 15:13: daily. [address] furosemide 2020-0 Yes 40mg Take 40 mg U nivers (LASIX) 40 3-24 by mouth ity o f mg tablet 15:13: daily. [address] LISINOPRIL 0 Yes Take by Uni vers ORAL 3-24 mouth. ity of 15:13: [address] amLODIPine 0 Yes 10mg Take 10 mg U nivers 10 mg 3-24 by mouth ity of tablet 15:13: daily. [address] CARVEDILOL 0 Yes Take by Uni vers ORAL 3-24 mouth. ity of 15:13: [address] Immunizations Ordered Filled Immunization Date Status Comments [facility] e Immunization Name Name Influenza Virus 2020-11-30 Completed Universit y of Vaccine Quad .5 mL 00:00:00 [facility] 6+ MO Branch Influenza Virus 2020-11-30 Completed Universit y of Vaccine Quad .5 mL 00:00:00 [facility] 6+ MO Branch Influenza Virus 2020-11-30 Completed Universit y of Vaccine Quad .5 mL 00:00:00 [facility] 6+ MO Branch Influenza Virus 2020-11-30 Completed Universit y of Vaccine Quad .5 mL 00:00:00 [facility] 6+ MO Branch Influenza Virus 2020-11-30 Completed Universit y of Vaccine Quad .5 mL 00:00:00 [facility] 6+ MO Branch Influenza Virus 2020-11-30 Completed Universit y of Vaccine Quad .5 mL 00:00:00 [facility] 6+ MO Branch Influenza Virus 2020-11-30 Completed Universit y of Vaccine Quad .5 mL 00:00:00 [place] [facility] 6+ [facility] Influenza Virus 2020-11-30 Completed Universit y of Vaccine Quad .5 mL 00:00:00 [place] [facility] 6+ MO Branch Influenza Virus 2020-11-30 Completed Universit y of Vaccine Quad .5 mL 00:00:00 [place] [facility] 6+ MO Branch Influenza Virus 2020-11-30 Completed Universit y of Vaccine Quad .5 mL 00:00:00 [facility] 6+ MO Branch Influenza Virus 2020-11-30 Completed Universit y of Vaccine Quad .5 mL 00:00:00 [place] [facility] 6+ MO Branch Influenza Virus 2020-11-30 Completed Universit y of Vaccine Quad .5 mL 00:00:00 [facility] 6+ MO Branch Influenza Virus 2020-11-30 Completed Universit y of Vaccine Quad .5 mL 00:00:00 [place] [facility] 6+ MO Branch Influenza Virus 2020-11-30 Completed Universit y of Vaccine Quad .5 mL 00:00:00 [facility] 6+ MO Branch Influenza Virus 2020-11-30 Completed Universit y of Vaccine Quad .5 mL 00:00:00 [facility] 6+ MO Branch Influenza Virus 2020-11-30 Completed Universit y of Vaccine Quad .5 mL 00:00:00 [facility] 6+ MO Branch Influenza Virus 2020-11-30 Completed Universit y of Vaccine Quad .5 mL 00:00:00 [facility] 6+ MO Branch Vital Signs Vital Name Observation Time Observation Value Comments Source Systolic blood 2020-11-30 15:04:00 150 mm[Hg] Univer sity of pressure [facility] Diastolic blood 2020-11-30 15:04:00 98 mm[Hg] Unive rsity of pressure [facility] Heart rate 2020-11-30 15:03:00 73 /min [facility] Body temperature 2020-11-30 15:03:00 36.78 Milady [facility] ersity [facility] Respiratory rate 2020-11-30 15:03:00 16 /min [facility] ersity [facility] Body height 2020-11-30 15:03:00 160 cm Universi ty [facility] Body weight 2020-11-30 15:03:00 83.717 kg Universi ty [facility] BMI 2020-11-30 15:03:00 32.69 kg/m2 Universi ty of [place] [facility] [place] Procedures Procedure Date / Time Performing Clinician Source Performed AUTHORIZATION FOR 2021-02-08 05:01:00 Doctor Unassigned, No Univ [facility] RELEASE OF PHI Name Medical Branch BI BIOPSY LYMPHNODE 2020-12-26 19:18:53 [facility] BI US GUIDED CORE BREAST 2020-12-26 17:05:[address] [facility] BIOPSY LEFT Medical Branch BI UPRIGHT STEREOTACTIC 2020-12-26 17:05:[address] [facility] CORE BREAST BIOPSY RIGHT Medical Branch BI ULTRASOUND BREAST 2020-12-13 18:49:07 [facility] Medical Branc h BI DIAGNOSTIC 2020-12-13 17:57:04 Nicole Shelley [facility] TOMOSYNTHESIS BILATERAL Medical Branch FLU VACC ([id number]), 6+ 2020-11-30 15:05:[address] [facility] MONTHS, IM, QUAD Medical Branch Encounters Start End Encounter Admission Attending Care Care Encounter Source Date/Time Date/Time Type Type Clinicians Facility Department ID 2021-08-15 2021-08-15 Outpatient R ARTURO, [facility] [id number] Univers 14:00:00 14:00:00 NICOLE [id number] mashay o f [facility] 2021-08-15 2021-08-15 Outpatient R ARTURO, [facility] [id number] Univers 00:00:00 00:00:00 NICOLE ity o f [facility] 2021-06-27 2021-06-27 Outpatient ARTURO, [facility] [id number] Univers 12:30:00 12:30:00 NICOLE [id number] ity o f [facility] 2021-06-27 2021-06-27 Outpatient R ARTURO, [facility] [id number] Univers 12:00:00 12:00:00 NICOLE ity o f [facility] 2021-06-16 2021-06-16 Outpatient MARTINE ERWIN [facility] [id number] [facility] 10:24:00 14:30:00 RAJEEV 2021-05-17 2021-05-17 Outpatient MARTINE, FB [facility] [id number] [facility] 11:14:00 16:30:00 RAJEEV 2021-05-08 2021-05-08 Outpatient DEONTE, FB [facility] [id number] [facility] 13:54:00 23:59:00 MARLENI 2021-04-08 2021-04-08 Outpatient KIMBERLY, [facility] [id number] [facility] 00:34:00 00:34:00 JESSICA 2021-03-21 2021-03-21 Outpatient KIMBERLY, [facility] [id number] [facility] 05:40:00 15:56:00 JESSICA 2021-02-08 2021-02-08 Orders Doctor VERENICE [id number] Univers 00:00:00 00:00:00 Only Unassigned, ISIDRA [id number] ity of [place] [facility] [id number] Kraig as [phone] [address] 2021-02-02 2021-02-02 Telephone [facility] [id number] [facility] [place] [facility] 00:00:00 00:00:00 Nicole Renteria PORTFOLIO MGR [id number] ity [facility] [id number] Kra[place] as MATERNAL [id number] Med ical & CHILD [address] [place] [address] 2021-02-01 2021-02-01 Outpatient Kaveh KOVACS [facility] [id number] Univers 10:30:00 10:30:00 SELVIN [id number] [facility] 2021-02-01 2021-02-01 Outpatient Kaveh KOVACS [facility] [id number] Univers 10:30:00 10:30:00 SELVIN [facility] 2021-01-31 2021-01-31 Outpatient Kaveh ROMAN [facility] [id number] Univers 15:00:00 15:00:00 MARCIE [id number] [facility] 2021-01-31 2021-01-31 Outpatient Kaveh ROMAN [facility] [id number] Univers 15:00:00 15:00:00 MARCIE [facility] 2021-01-03 2021-01-03 Outpatient Kaveh ROMAN [facility] [id number] Univers 16:00:00 16:00:00 MARCIE [id number] [facility] 2021-01-03 2021-01-03 Outpatient Kaveh ROMAN [facility] [id number] Univers 16:00:00 16:00:00 MARCIE [facility] 2020-12-29 2020-12-29 Telephone [facility] [id number] Univers 00:00:00 00:00:00 Nicole C PORTFOLIO MGR [id number] ity of REGIONAL [id number] [place] as MATERNAL [id number] [facility] ical & CHILD [address] [place] [address] 2020-12-28 2020-12-28 Telephone [facility] [id number] Univers 00:00:00 00:00:00 Nicole C PORTFOLIO MGR [id number] ity of [facility] [id number] Kra[place] as MATERNAL [phone] [facility] ical & CHILD [address] [place] [address] 2020-12-26 2020-12-26 [facility] [id number] Univers 09:18:28 23:59:00 Encounter Nicole C SPECIALTY [id number] ity [id number] [phone] [address] 2020-12-26 2020-12-26 [facility] [id number] Univers 09:18:13 23:59:00 Encounter Nicole C SPECIALTY [id number] ity [id number] [phone] [address] 2020-12-26 2020-12-26 Outpatient [facility] [id number] Univers 11:05:00 11:05:00 NICOLE [id number] ity o f [facility] 2020-12-26 2020-12-26 [facility] [id number] Univers 09:00:00 09:17:00 Encounter Nicole Renteria SPECIALTY [id number] ity of CARE [id number] [facility] AT [id number] [facility] [address] [place] [address] 2020-12-26 2020-12-26 Outpatient R [facility] [id number] Univers 00:00:00 00:00:00 NICOLE ity o f [facility] 2020-12-20 2020-12-20 [facility] [id number] Univers 00:00:00 00:00:00 Nicole Renteria PORTFOLIO MGR [id number] ity of REGIONAL [id number] [place] as MATERNAL [phone] Med ical & CHILD [address] [place] [address] 2020-12-14 2020-12-14 Outpatient R [facility] [id number] Univers 14:00:00 14:00:00 [id number] ity of [facility] 2020-12-14 2020-12-14 Outpatient R [facility] [id number] Univers 14:00:00 14:00:00 ity of [facility] 2020-12-13 2020-12-13 [facility] [id number] Univers 10:45:10 23:59:00 Encounter Nicole Pal [id number] ity of [place] [id number] [facility] [id number] [facility] [address] [place] 2020-12-13 2020-12-13 [facility] [id number] Univers 10:44:29 10:44:29 Encounter Nicole Pal [id number] ity of [place] [id number] [place] [phone] [facility] [address] [place] 2020-12-13 2020-12-13 [facility] [id number] Univers 00:00:00 00:00:00 NICOLE [id number] masharuperto ayala [facility] 2020-12-13 2020-12-13 Outpatient R ARTURO [facility] [id number] Univers 00:00:00 00:00:00 NICOLE flanaganruperto gita [facility] 2020-12-13 2020-12-13 [facility] 1.2.840.114 [id number] Univers 00:00:00 00:00:00 Nicole Renteria PORTFOLIO MGR [id number] ity of [facility] [id number] Kraig as MATERNAL [phone] [facility], Incl & CHILD [address] [place] [address] 2020-11-30 2020-11-30 Office [facility] [id number] Univers 09:49:09 11:05:16 Visit Nicole Renteria PORTFOLIO MGR [id number] ity of [facility] [id number] Kra[place] as MATERNAL [phone] [facility], Incl & CHILD [address] [place] [address] 2020-11-30 2020-11-30 Outpatient Kaveh [facility] [id number] [employer] 09:30:00 09:30:00 NICOLE mark pelayo [facility] Results Test Description Test Time Test Comments Results Result Sourc e Comments BI US GUIDED CORE 2020-12-08 Examination:BI [facility] BREAST BIOPSY LEFT 9 GUIDED CORE BREAST [facility] 21:21:40 BIOPSY LEFTBI US Branch GUIDED LYMPH [...] skin incision was made. ?A 14 gauge [place] core biopsy needle was advanced to the [...] the same date stereotactic biopsy image set, [id number]. Recommendation:Pend ing pathology results - Left Site [...] NODE BIOPSY LEFT 9 GUIDED CORE BREAST [facility] 21:21:40 BIOPSY LEFTBI US Branch GUIDED LYMPH [...] skin incision was made. ?A 14 gauge [place] core biopsy needle was advanced to the [...] the same date stereotactic biopsy image set, [id number]. Recommendation:Pend ing pathology results - Left Site [...] and/or during the gonzalez components. UPRIGHT 2020-12-08 Examination:[facility] STEREOTACTIC CORE 9 UPRIGHT [facility] BREAST BIOPSY 21:18:56 STEREOTACTIC CORE Bran ch [...]
[2021-09-08 11:19] LABS: Absolute Lymphocytes (CBC) 1.2 K/uL (0.7-4.9); Hematocrit 34.3 % (36.0-45.0); Lymphocytes % 38.3 % (15.3-44.8); MPV 7.7 fL (7.6-11.3); RBC Red Blood Cell Count 3.68 M/uL (3.86-4.86)
[2021-09-08 11:20] LABS: Protime INR 0.97
[2021-09-08 11:36] LABS: ALT/SGPT 23 U/L (12-78); AST/SGOT 21 U/L (15-37); Albumin 2.8 g/dL (3.4-5.0); Alkaline Phosphatase 46 U/L (45-117); BUN Blood Urea Nitrogen 7 mg/dL (7-18); Bicarbonate 29 mmol/L (21-32); Bilirubin Direct < 0.1 mg/dL (0-0.2); Bilirubin Total 0.2 mg/dL (0.2-1.0); Glucose Level 91 mg/dL (74-106); Magnesium 2.1 mg/dL (1.8-2.4); NT PRO-BNP 19 pg/mL (<125); Potassium 3.9 mmol/L (3.5-5.1); Protein, Total 6.7 g/dL (6.4-8.2); Sodium Level 137 mmol/L (136-145); Troponin (Emerg Dept Use Only) < 0.02 ng/mL (0.0-0.045)
--- NOTE | 2021-09-08 12:00 | RAD REPORT ---
EXAM DESCRIPTION: RADChest Single View09/08/2021 11:53 am CLINICAL HISTORY: Chest pain COMPARISON: 08/24/2021 FINDINGS: Moderate reticular opacities within the lungs. The heart is normal size. Central venous li ne with its tip in the superior vena cava IMPRESSION: Moderate reticular opacities within the lungs may indicate an atypical pneumonia
[2021-09-08] MEDS ORDERED: IPRATROPIUM BROM 0.5MG/2.5ML ONE (20:42)
[2021-09-08] MEDS ORDERED: ALBUTEROL 2.5 MG/3 ML NEB SOL ONE (20:42)
--- NOTE | 2021-09-08 21:01 | RAD REPORT ---
EXAM DESCRIPTION: CT - Chest For Pe Angio - 09/08/2021 8:24 pm CLINICAL HISTORY: Chest pain;Dyspnea History of bilateral breast cancer COMPARISON: Chest For Pe Angio dated 08/24/2021; Chest Single View dated 09/08/2021 TECHNIQUE: Dynamically enhanced 3 mm thick images of the chest were obtained during administration o f approximately 150mL Isovue 370 IV contrast. Coronal and oblique MIP reconstruction images were gene rated and reviewed. Exam utilizes a protocol to evaluate the pulmonary arterial tree. All CT scans are performed using dose optimization technique as appropriate and may include automated exposure control or mA/KV adjustment according to patient size. FINDINGS: No pulmonary emboli are identified. The aorta as imaged shows no acute or suspicious finding. No pericardial thickening or effusion. Bronchial wall thickening is present centrally and lung markings are mildly prominent. There is parti al opacification of lower lobe bronchi on the right and some minimal lateral right base airspace opac ification. No pleural effusion or pleural thickening. No mediastinal or hilar suspicious masses. No chest wall masses or abnormal axillary lymphadenopathy. Asymmetrical breast densities are present metallic density on the right may represent a biopsy clip. There is skin thickening on the left which may be post therapy treatment change. Port-A-Cath is in pl teresa. There is presumed to the patient's breast cancer history is well known and appropriate treatment s are already underway. IMPRESSION: No pulmonary emboli identified. Bronchial wall thickening in both lung figueroa centrally and partial bronchial tree opacification in t he right lower lobe. Patchy right base airspace opacification present. Overall lung parenchymal opacities are less prominent than seen August 24 and may represent remnant s of viral pneumonia or atypical pneumonia. Recurrent disease is possible as well. Findings of bilateral breast cancer findings with left breast skin thickening and left-sided Port-A-C ath. It is presumed that the patient's breast cancer history is well known and appropriate treatment already underway.
--- NOTE | 2021-09-08 23:14 | ER ---
Nurse's Notes [facility] [place], [place] Name: Martha Riojas Age: 55 yrs Sex: Female : 1965 Arrival Date: 09/08/2021 Time: 10:40 Bed 27 Private MD: Nikole Johnston H Diagnosis: Chest pain, unspecified;Edema, unspecified;Other pneumonia, unspecified organism Presentation: 09/08 11:00 Chief complaint: Patient states: Chest pressure, bilateral leg swelling x 3 days. jl7 Coronavirus screen: At this time, the client does not indicate any symptoms associated with coronavirus-19. Ebola Screen: No symptoms or risks identified at this time. Risk Assessment: Do you want to hurt yourself or someone else? Patient reports no desire to harm self or others. Onset of symptoms was September 05, 2021. 11:00 Method Of Arrival: Wheelchair jl7 11:00 Acuity: SOL 2 jl7 09/09 04:58 Initial Sepsis Screen: Does the patient meet any 2 criteria? No. Patient's initial guillermo sepsis screen is negative. Does the patient have a suspected source of infection? No. Patient's initial sepsis screen is negative. Triage Assessment: 09/08 11:05 General: Appears in no apparent distress. uncomfortable, Behavior is calm, cooperative, jl7 appropriate for age. Pain: Complains of pain in chest Pain currently is 8 out of 10 on a pain scale. Quality of pain is described as pressure. Neuro: Level of Consciousness is awake, alert, obeys commands, Oriented to person, place, time, situation. Cardiovascular: Patient's skin is warm and dry. Rhythm is regular. Respiratory: Airway is patent Respiratory effort is even, unlabored, Respiratory pattern is regular, symmetrical. Derm: Skin is pink, warm \\T\\ dry. 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 - Social history:: Smoking status: Patient denies any tobacco usage or history of. Screenin:30 Abuse screen: Denies threats or abuse. Nutritional screening: No deficits noted. bb Tuberculosis screening: No symptoms or risk factors identified. Fall Risk None identified. Assessment: 20:30 General: Appears in no apparent distress. uncomfortable, Behavior is cooperative. Pain: bb Complains of pain in chest Pain does not radiate. Pain began suddenly. Neuro: Level of Consciousness is awake, alert, obeys commands, Oriented to person, place, time, situation. Cardiovascular: Capillary refill < 3 seconds Patient's skin is warm and dry. Respiratory: Respiratory effort is labored, Respiratory pattern is tachypnea Breath sounds are coarse bilaterally. GI: Abdomen is round. Derm: Skin is dry, Skin is normal, Skin temperature is warm. Musculoskeletal: Circulation, motion, and sensation intact. 22:30 Reassessment: Patient is alert, oriented x 3, equal unlabored respirations, skin bb warm/dry/pink. awaiting diagnostic results. 09/09 00:30 Reassessment: Patient is alert, oriented x 3, equal unlabored respirations, skin bb warm/dry/pink. pt resting quietly awaiting room assignment. 03:05 General: The pt was transferred to the room \\T\\ 0145. She is AAOx3 and uses a bedside guillermo commode, with minimal assist, due to the monitor leads. She denies any pain and quickly "got comfortable" and was able to sleep. She is sleeping, at present, but does call for assist, as asked, to the bedside commode. . 04:56 Reassessment: Patient appears in no apparent distress at this time. guillermo 23:31 Reassessment: PT TOLERATING OXYGEN THERAPY. O2 94. SEEN SLEEPING IN BED, NO SIGNS OF kd3 DISTRESS. 09/10 03:02 Reassessment: Patient is alert, oriented x 3, equal unlabored respirations, skin kd3 warm/dry/pink. Vital Signs: 09/08 11:00 BP 119 / 44; Pulse 98; Resp 18; Temp 99.1(O); Pulse Ox 97% on R/A; dh3 11:05 Weight 72.57 kg; Height 5 ft. 3 in. (160.02 cm) (R); Pain 8/10; jl7 18:40 BP 127 / 83 LA Sitting (auto/reg); Resp 14 S; Pulse Ox 99% on R/A; mb4 21:07 BP 129 / 77; Pulse 77; Resp 20; Temp 97.8; Pulse Ox 100% on R/A; tt3 09/09 00:40 BP 115 / 63; Pulse 78; Resp 16 S; Pulse Ox 96% on R/A; bb 03:07 BP 131 / 75; Pulse 71; Resp 14; Pulse Ox 97% on R/A; guillermo 04:55 BP 114 / 78; Pulse 79; Resp 14; Temp 98.5; Pulse Ox 96% on R/A; Pain 0/10; guillermo 06:19 BP 100 / 73; Pulse 81; Resp 16; Pulse Ox 96% on R/A; Pain 0/10; guillermo 23:32 BP 136 / 87; Pulse 82; Resp 17; Pulse Ox 96% on NC; kd3 09/10 03:02 BP 134 / 87; Pulse 73; Resp 16; Pulse Ox 97% ; kd3 09/08 11:05 Body Mass Index 28.34 (72.57 kg, 160.02 cm) jl7 ED Course: 09/08 10:40 Patient arrived in ED. mr 10:41 Nikole Johnston DO is Private Physician. mr 10:55 EKG done, by ED staff, reviewed by Jeff Bobo MD. [facility] 11:01 Initial lab(s) drawn, by nv, sent to lab. Inserted saline lock: 20 gauge in right dh3 antecubital area, using aseptic technique. Blood collected. 11:05 Triage completed. jl7 11:05 Arm band placed on right wrist. 7 11:08 EKG completed in triage. Results shown to MD. jl7 11:44 X-ray completed. Portable x-ray completed in exam room. md1 11:53 XRAY Chest (1 view) In Process Unspecified. EDMS 20:01 Yuniel Garza MD is Attending Physician. 7 20:01 [facility]anc[facility]C [facility] kb 20:24 CT Chest For PE Angio In Process Unspecified. EDMS 20:30 Patient has correct armband on for positive identification. Pulse ox on. NIBP on. bb 20:30 No provider procedures requiring assistance completed. Patient maintains SpO2 bb saturation greater than 95% on room air. 22:01 US Extremity Venous W Compression Lamont In Process Unspecified. EDMS 22:01 UPPER EXTREMITY VENOUS UNILATE In Process Unspecified. EDMS 23:14 Ramez Lerner is Hospitalizing Provider. kb 09/09 01:30 Patient admitted, IV remains in place. bb 04:28 Crissy Swenson, RN is Primary Nurse. guillermo 04:56 Patient has correct armband on for positive identification. Placed in gown. Bed in low guillermo position. Call light in reach. Side rails up X 1. BSC at bedside and pt asked to call for assist. monitoring specialist on. Pulse ox on. NIBP on. Door closed. Noise minimized. Lights dimmed. Warm blanket given. Verbal reassurance given. 07:43 Assisted to bedside commode. mb4 Administered Medications: 09/08 20:30 Drug: Albuterol 2.5 mg Route: Inhalation; bb 21:30 Follow up: Response: Marked relief of symptoms bb 20:30 Drug: AtroVENT (ipratropium) Aerosol 0.5 mg Route: Inhalation; bb 21:30 Follow up: Response: Marked relief of symptoms bb 09/09 00:40 Drug: Lasix (furosemide) 40 mg Route: IVP; Site: right antecubital; bb 01:30 Follow up: Response: No adverse reaction bb 00:40 Drug: morphine 2 mg Route: IVP; Site: left antecubital; bb 01:30 Follow up: Response: No adverse reaction bb Outcome: 09/08 23:14 Decision to Hospitalize by Provider. kb 09/09 00:30 Admitted to ER Hold. Please see [facility] for further documentation. bb Condition: stable Instructed on the need for admit. 09/10 15:42 Patient left the ED. jd3 Signatures: Dispatcher [employer] EDMS Pam Blancas, WEBSITE PROGRAMMER-C WEBSITE PROGRAMMER-Ckb [employer] Licha duncan Crissy Stratton, RN RN bb Blas Maradiaga RN RN jl7 Shakila Yan 3 Jason Pollack RN RN jd3 Xiao Montero mb4 Tashia Hsu md1 Yuniel Garza MD MD mh7 Rip Dixon tt3 Danuta Johnson RN RN kd3 Crissy Swenson RN RN guillermo
--- NOTE | 2021-09-08 23:14 | EDPHYS ---
Physician Documentation [facility] Name: Martha Riojas Age: 55 yrs Sex: Female : 1965 Arrival Date: 09/08/2021 Time: 10:40 Bed 27 Private MD: Nikole Johnston H ED Physician Yuniel Garza HPI: 09/08 23:39 This 55 yrs old Black Female presents to ER via Wheelchair with complaints of Chest kb Pain, Trouble Walking, Hand Swelling. 23:39 The patient or guardian reports chest pain that is located primarily in the chest kb diffusely. Onset: 3 day(s) ago. The pain does not radiate. Associated signs and symptoms: Pertinent positives: lower extremity swelling, shortness of breath. The chest pain is described as aching. Duration: The patient or guardian reports a single episode, that is still ongoing. Modifying factors: The symptoms are alleviated by nothing. the symptoms are aggravated by nothing. Severity of pain: At its worst the pain was moderate a 8 / 10 in the emergency department the pain is unchanged. The patient has not experienced similar symptoms in the past. The patient has not recently seen a physician. Pt reports chest pain, lower extremity and left upper extremity swelling for 3 days. . 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 - Social history:: Smoking status: Patient denies any tobacco usage or history of. ROS: 23:38 Constitutional: Negative for fever, chills, and weight loss. kb 23:38 Cardiovascular: Positive for chest pain, edema. 23:38 Respiratory: Positive for dyspnea on exertion, shortness of breath. 23:38 All other systems are negative. Exam: 23:38 Constitutional: This is a well developed, well nourished patient who is awake, alert, kb and in no acute distress. Head/Face: Normocephalic, atraumatic. ENT: Moist Mucous membranes Abdomen/GI: Soft, non-tender. No distention Skin: Warm, dry with normal turgor. Normal color. MS/ Extremity: Pulses equal, no cyanosis. Neurovascular intact. Full, normal range of motion. Neuro: Awake and alert, GCS 15, oriented to person, place, time, and situation. Moves all extremities. Normal gait. Psych: Awake, alert, with orientation to person, place and time. Behavior, mood, and affect are within normal limits. 23:38 Cardiovascular: Rate: normal, Rhythm: regular, Edema: 2+ edema to level of left foot and right foot. 23:38 Respiratory: the patient does not display signs of respiratory distress, Respirations: normal, Breath sounds: wheezing: expiratory that is moderate, is heard diffusely. Vital Signs: 11:00 BP 119 / 44; Pulse 98; Resp 18; Temp 99.1(O); Pulse Ox 97% on R/A; dh3 11:05 Weight 72.57 kg; Height 5 ft. 3 in. (160.02 cm) (R); Pain 8/10; jl7 18:40 BP 127 / 83 LA Sitting (auto/reg); Resp 14 S; Pulse Ox 99% on R/A; mb4 21:07 BP 129 / 77; Pulse 77; Resp 20; Temp 97.8; Pulse Ox 100% on R/A; tt3 09/09 00:40 BP 115 / 63; Pulse 78; Resp 16 S; Pulse Ox 96% on R/A; bb 03:07 BP 131 / 75; Pulse 71; Resp 14; Pulse Ox 97% on R/A; guillermo 04:55 BP 114 / 78; Pulse 79; Resp 14; Temp 98.5; Pulse Ox 96% on R/A; Pain 0/10; guillermo 06:19 BP 100 / 73; Pulse 81; Resp 16; Pulse Ox 96% on R/A; Pain 0/10; guillermo 23:32 BP 136 / 87; Pulse 82; Resp 17; Pulse Ox 96% on NC; kd3 09/10 03:02 BP 134 / 87; Pulse 73; Resp 16; Pulse Ox 97% ; kd3 09/08 11:05 Body Mass Index 28.34 (72.57 kg, 160.02 cm) jl7 MDM: 09/08 20:01 Patient medically screened. kb 23:11 Data reviewed: vital signs, nurses notes. Data interpreted: Pulse oximetry: on room air kb is 100 %. Interpretation: normal. 23:39 Counseling: I had a detailed discussion with the patient and/or guardian regarding: the kb historical points, exam findings, and any diagnostic results supporting the discharge/admit diagnosis, lab results, radiology results, the need for further work-up and treatment in the hospital. Physician consultation: [place] regarding admission, to the telemetry unit. patient's condition, and will see patient in ED. 09/08 10:51 Order name: Basic Metabolic Panel [facility] 09/08 10:51 Order name: CBC with Diff [facility] 09/08 10:51 Order name: LFT's [facility] 09/08 10:51 Order name: Magnesium; Complete Time: 20: [facility] 09/08 10:51 Order name: NT PRO-BNP; Complete Time: 20: [facility] 09/08 10:51 Order name: PT-INR; Complete Time: 20: [facility] 09/08 10:51 Order name: Troponin (emerg Dept Use Only); Complete Time: 20: [facility] 09/08 10:51 Order name: Basic Metabolic Panel; Complete Time: 20: [facility] 09/08 10:51 Order name: CBC with Automated Diff; Complete Time: 20: [facility] 09/08 10:51 Order name: Liver (Hepatic) Function; Complete Time: 20: [facility] 09/08 23:12 Order name: COVID-19 SARS RT PCR (Document "Date of Onset" if Symptomatic); Complete kb Time: 00:31 09/09 11:15 Order name: Glucose, Ancillary Testing [facility] 09/09 12:19 Order name: Troponin I [facility] 09/09 12:19 Order name: NT PRO-BNP [facility] 09/09 12:19 Order name: C-Reactive Protein [facility] 09/09 12:19 Order name: Ferritin [facility] 09/09 12:28 Order name: Procalcitonin [facility] 09/09 15:57 Order name: Urinalysis [facility] 09/09 16:40 Order name: Glucose, Ancillary Testing [facility] 09/09 21:15 Order name: Glucose, Ancillary Testing [facility] 09/09 21:28 Order name: Troponin I [facility] 09/10 04:31 Order name: CBC with Automated Diff [facility] 09/10 04:46 Order name: Comprehensive Metabolic Panel [facility] 09/10 04:46 Order name: Phosphorus EDMS 09/10 04:46 Order name: Lipid Profile [facility] 09/10 04:46 Order name: T4 Free [facility] 09/10 04:46 Order name: Magnesium EDMS 09/10 04:46 Order name: Thyroid Stimulating Hormone [facility] 09/10 08:24 Order name: Glucose, Ancillary Testing [facility] 09/10 09:00 Order name: CBC Smear Scan [facility] 09/08 10:51 Order name: XRAY Chest (1 view); Complete Time: 20:01 [facility] 09/08 10:51 Order name: EKG; Complete Time: 10:51 [facility] 09/08 10:51 Order name: EKG - Nurse/Tech; Complete Time: 11:08 [facility] 09/08 10:51 Order name: IV Saline Lock; Complete Time: 11:08 [facility] 09/08 10:51 Order name: Labs collected and sent; Complete Time: 11:08 [facility] 09/08 10:51 Order name: O2 Per Protocol; Complete Time: 11: [facility] 09/08 10:51 Order name: O2 Sat Monitoring; Complete Time: 20:27 [facility] 09/08 20:13 Order name: CT Chest For PE Angio; Complete Time: 21:03 09/08 20:13 Order name: US Extremity Venous W Compression [facility] 09/08 20:57 Order name: UPPER EXTREMITY VENOUS UNILATE [facility] 09/10 11:36 Order name: Glucose, Ancillary Testing [facility] Administered Medications: 20:30 Drug: Albuterol 2.5 mg Route: Inhalation; bb 21:30 Follow up: Response: Marked relief of symptoms bb 20:30 Drug: AtroVENT (ipratropium) Aerosol 0.5 mg Route: Inhalation; bb 21:30 Follow up: Response: Marked relief of symptoms bb 09/09 00:40 Drug: Lasix (furosemide) 40 mg Route: IVP; Site: right antecubital; bb 01:30 Follow up: Response: No adverse reaction bb 00:40 Drug: morphine 2 mg Route: IVP; Site: left antecubital; bb 01:30 Follow up: Response: No adverse reaction bb Disposition: 19:01 Co-signature as Attending Physician, Yuniel Garza MD. mh7 Disposition Summary: 12/31/21 23:14 Hospitalization Ordered Hospitalization Status: Observation kb Provider: Ramez Lerner Condition: Stable kb Problem: new kb Symptoms: are unchanged kb Bed/Room Type: Standard kb [facility]: [facility] ER HOLD(09/08/21 23:41) Room Assignment: ERHOLD-(09/08/21 23:41) mw Diagnosis - Chest pain, unspecified kb - Edema, unspecified kb - Other pneumonia, unspecified organism kb Forms: - Medication Reconciliation Form kb - SBAR form kb Signatures: Dispatcher [employer] EDMS Pam Blancas, JANE-C MIGRATION AGENT-CkLisseth Dumont RN RN mw Crissy Stratton RN RN bb Blas Maradiaga RN RN jl7 Yuniel Garza MD MD mh7 Corrections: (The following items were deleted from the chart) 09/08 20:57 20:14 Extremity Venous Uni Ltd+US.RAD.BRZ ordered. [facility] 23:41 23:14 Telemetry/MedSurg (observation) kb 23:41 23:14 kb
[2021-09-09] MEDS ORDERED: MORPHINE 2 MG/ML SYR ONE ×3 (00:34→20:54)
[2021-09-09] MEDS ORDERED: FUROSEMIDE 40 MG/4 ML VIAL ONE (00:35)
--- NOTE | 2021-09-09 02:39 | P.HP ---
Certification for Inpatient Patient admitted to: Observation With expected LOS: <2 Midnights Patient will require the following post-hospital care: None Practitioner: I am a practitioner with admitting privileges, knowledge of patient current condition, hospital course, and medical plan of care. Services: Services provided to patient in accordance with Admission requirements found in Title 42 Section 412.3 of the Code of Federal Regulations <Franklin Perdomo - Last Filed: 09/09/21 02:32> Patient History Date of Service: 09/09/21 Reason for admission: copd exacerbation, covid, edema History of Present Illness: Ms. Riojas is a 55 yo F with breast cancer currently receiving chemotherapy, CHF, history of CVA, CAD, DM, HTN, HLD, COPD who presents with 10/10 intermittent squeezing sternal chest pain, shortness of breath. She says the pain moves down her left leg and left arm and is worse with movement. No relief with nitroglycerin. Denies cough, fever, nausea, vomiting and diarrhea. Found to be COVID+ in the ED. She has an audible wheeze and has had COPD exacerbation in the past. She also reports edema in her legs and her left arm for the last week. She says she is so swollen that she cannot walk. She was supposed to have chemotherapy today but when she called her oncologist, he told her to go to the ED. Venous ultrasound negative for DVT. CTPE negative for PE. CTPE IMPRESSION: No pulmonary emboli identified. Bronchial wall thickening in both lung figueroa centrally and partial bronchial tree opacification in the right lower lobe. Patchy right base airspace opacification present. Overall lung parenchymal opacities are less prominent than seen August 24 and may represent remnants of viral pneumonia or atypical pneumonia. Recurrent disease is possible as well. Findings of bilateral breast cancer findings with left breast skin thickening and left-sided Port-A-Cath. It is presumed that the patient's breast cancer history is well known and appropriate treatment already underway. CXR IMPRESSION: Moderate reticular opacities within the lungs may indicate an atypical pneumonia - Past Medical/Surgical History Diabetic: Yes -: Diastolic dysfunction -: HTN -: Diabetes mellitus type 2 -: COPD -: Previous AL -: Previous CVA -: Hyperlipidemia -: Asthma -: breast cancer -: CHF -: HLD -: Right arm cyst removed -: Back surgery -: Hernia repair Psychosocial/ Personal History: She is a , has 5 children. She does not work. - Family History Mother -: Heart disease, Lung disease Father -: Heart disease - Social History Smoking Status: Never smoker Alcohol use: No CD- Drugs: No Caffeine use: No Place of Residence: Home <Franklin Perdomo - Last Filed: 09/09/21 02:32> Date of Service: 09/09/21 <Renzo Mckeon - Last Filed: 09/10/21 23:46> Allergies Corticosteroids (Glucocorticoids) Adverse Reaction (Verified 09/09/21 11:31) Hives Home Medications: Albuterol Neb [Proventil 0.083% Neb Soln] 2.5 mg IH Q4H PRN 12/18/18 Furosemide [Lasix] 40 mg PO SEECOM 12/18/18 Levalbuterol HCl [Xopenex] 0.63 mg IH Q4H PRN 12/18/18 Metoprolol Tartrate [Lopressor] 100 mg PO DAILY 12/18/18 Potassium Chloride [Klor-Con M10] 10 meq PO DAILY 12/18/18 carvediloL [Coreg*] 6.25 mg PO BID 12/18/18 cloNIDine HCL [Catapres] 0.3 mg PO DAILY 12/18/18 Amlodipine [Norvasc*] 5 mg PO DAILY #30 tab 12/20/18 Fluticasone/Salmeterol [Advair 250-50 Diskus] 1 each IH BID #1 blst.w.dev 12/20/18 Nitroglycerin [Nitrostat] 0.25 mg SL BID PRN 12/20/18 metroNIDAZOLE [Flagyl*] 500 mg PO BID #28 tablet 12/20/18 predniSONE [Prednisone*] 20 mg PO BID #10 tab 12/20/18 Review of Systems 10-point ROS is otherwise unremarkable Respiratory: Shortness of Breath, SOB with Excertion, Wheezing Cardiovascular: Chest Pain, Edema <Franklin Perdomo - Last Filed: 09/09/21 02:32> Physical Examination - Physical Exam General: Alert, In no apparent distress HEENT: Atraumatic, PERRLA, Mucous membr. moist/pink, EOMI, Sclerae nonicteric Neck: Supple, 2+ carotid pulse no bruit, No LAD, Without JVD or thyroid abnormality Respiratory: Diminished, Expiratory wheezes Cardiovascular: Regular rate/rhythm, Normal S1 S2, Edema (edema on both legs, and left arm) Gastrointestinal: Normal bowel sounds, No tenderness Musculoskeletal: No tenderness Integumentary: No rashes Neurological: Normal speech, Normal strength at 5/5 x4 extr, Normal tone, Normal affect Lymphatics: No axilla or inguinal lymphadenopathy - Studies Laboratory Data (last 24 hrs) 09/08/21 11:01: PT 11.2, INR 0.97 09/08/21 11:01: WBC 3.10 L, Hgb 11.0 L, Hct 34.3 L, Plt Count 187 09/08/21 11:01: Sodium 137, Potassium 3.9, BUN 7, Creatinine 0.78, Glucose 91, Magnesium 2.1, Total Bilirubin 0.2, AST 21, ALT 23, Alkaline Phosphatase 46 <Franklin Perdomo - Last Filed: 09/09/21 02:32> Assessment and Plan - Problems (Diagnosis) (1) COVID Status: Acute (2) COPD exacerbation Onset Date: 05/15/16 Status: Acute (3) Chest pain Onset Date: 05/15/16 Status: Acute (4) Chronic anemia Status: Chronic (5) Dyspnea Onset Date: 11/23/15 Status: Acute Qualifiers: Dyspnea type: dyspnea on exertion Qualified Code(s): R06.09 - Other forms of dyspnea (6) CHF (congestive heart failure) Status: Chronic Qualifiers: Heart failure type: diastolic Heart failure chronicity: chronic Qualified Code(s): I50.32 - Chronic diastolic (congestive) heart failure (7) Coronary artery disease Onset Date: 10/19/16 Status: Chronic Qualifiers: Coronary Disease-Associated Artery/Lesion type: [place] artery [place] vs. transplanted heart: [place] heart Associated angina: without angina Qualified Code(s): I25.10 - Atherosclerotic heart disease of [place] coronary artery without angina pectoris (8) Diabetes mellitus, type II Status: Chronic Qualifiers: Diabetes mellitus nursing home insulin use: without rodent exterminator use Diabetes mellitus complication status: without complication Qualified Code(s): E11.9 - Type 2 diabetes mellitus without complications (9) Hyperlipidemia Onset Date: 10/19/16 Status: Chronic Qualifiers: Hyperlipidemia type: mixed hyperlipidemia Qualified Code(s): E78.2 - Mixed hyperlipidemia (10) Hypertension Status: Chronic Qualifiers: Hypertension type: primary hypertension Qualified Code(s): I10 - Essential (primary) hypertension - Plan continue IV steroids, inhalers, covid supplements, O2 as needed continue PO lasix pain management as needed reconcile and continue home medications repeat BNP and troponin DVT ppx Discharge Plan: Home Plan to discharge in: 24 Hours - Advance Directives Does patient have a Living Will: No Does patient have a Durable POA for Healthcare: No - Code Status/Comfort Care Code Status Assessed: Yes (full code ) Critical Care: No Time Spent Managing Pts Care (In Minutes): 70 <Franklin Perdomo - Last Filed: 09/09/21 02:32> Date of Service: 09/09/21 Subjective: Agree with HPI as mentioned above Physical Examination: Vitals: Afebrile vital signs are stable Physical exam: Cardiovascular: Within normal limits. Lungs: Within normal limits Abdomen: Within normal limits Neuro: Awake, alert, oriented to person place and time Assessment: 1. COVID-19 pneumonia Plan: 1. Continue with current plan of care <Renzo Mckeon - Last Filed: 09/10/21 23:46>
--- NOTE | 2021-09-09 08:11 | RAD REPORT ---
EXAM DESCRIPTION: US - Extrem Venous W Compress [place] - 09/08/2021 10:01 pm CLINICAL HISTORY: SWELLINGof both legs Preliminary findings provided at the time of the study COMPARISON: None. TECHNIQUE: Real-time sonographic evaluation of the bilateral lower extremity common femoral, superfi cial femoral, popliteal and posterior tibial veins was performed. FINDINGS: Normal compressibility, flow augmentation, phasic flow and spontaneous flow are identified in the left and right lower extremity common femoral, superficial femoral, popliteal and posterior t ibial veins. No intraluminal filling defects seen. IMPRESSION: No DVT in either lower extremity.
--- NOTE | 2021-09-09 08:12 | RAD REPORT ---
EXAM DESCRIPTION: US - UPPER EXTREMITY VENOUS UNILATE - 09/08/2021 10:01 pm CLINICAL HISTORY: Left arm pain and swelling Preliminary findings provided at the time of the study. COMPARISON: None. TECHNIQUE: Real-time sonographic evaluation of the left upper extremity deep venous systems was perf ormed. FINDINGS: Normal compressibility, flow augmentation, phasic flow and spontaneous flow are identified in the left upper extremity deep venous system. No intraluminal filling defects seen. Internal jugul ar and subclavian veins are normal as well. IMPRESSION: No DVT in the left upper extremity.
[2021-09-09] MEDS ORDERED: ALBUTEROL INHALER 60 PUFF/8 GM IH PRN (11:14)
[2021-09-09] MEDS ORDERED: ACETAMINOPHEN 500 MG TAB PO PRN (11:14)
[2021-09-09] MEDS: INSULIN -REGULAR HUMAN 50 UNIT/0.5 ML ML SQ SCH ×4 (11:14→21:00)
[2021-09-09] MEDS ORDERED: IPRATROPIUM 200 PUFF/12.9 GM INH IH SCH (11:14)
[2021-09-09] MEDS ORDERED: BENZONATATE 100 MG CAP PO PRN (11:14)
[2021-09-09] MEDS ORDERED: ASPIRIN EC 81 MG TAB PO ONE (12:08)
[2021-09-09] MEDS ORDERED: FUROSEMIDE 40 MG TABLET ONE (12:09)
[2021-09-09] MEDS ORDERED: FAMOTIDINE 20 MG TAB ONE ×3 (12:09→20:55)
[2021-09-09] MEDS ORDERED: ENOXAPARIN 40 MG/0.4 ML SQ ONE (12:10)
[2021-09-09] MEDS ORDERED: METHYLPREDNISOLONE 125 MG INJ ONE (12:10)
[2021-09-09] MEDS ORDERED: ASCORBIC ACID 500 MG TABLET ONE ×3 (12:13→20:53)
[2021-09-09] MEDS ORDERED: ZINC SULFATE 220 MG CAP ONE (12:13)
[2021-09-09] MEDS ORDERED: VITAMIN D 1000 UNIT TAB ONE (12:13)
[2021-09-09] MEDS ORDERED: BENZONATATE 100 MG CAP PO ONE (12:14)
[2021-09-09] MEDS ORDERED: ONDANSETRON 4 MG/2 ML VIAL ONE ×2 (12:15→20:54)
[2021-09-09 12:19] LABS: C-Reactive Protein 5.21 mg/L (<3.00); Ferritin 51.6 ng/mL (8-388); NT PRO-BNP 9 pg/mL (<125); Troponin I < 0.02 ng/mL (0.0-0.045)
[2021-09-09] MEDS: MORPHINE 2 MG/ML SYR IV PRN ×2 (12:42→21:12)
[2021-09-09] MEDS: ZINC SULFATE 220 MG CAP PO SCH (12:42)
[2021-09-09] MEDS: ASCORBIC ACID 500 MG TABLET PO SCH ×3 (12:42→21:00)
[2021-09-09] MEDS: ENOXAPARIN 40 MG/0.4 ML SQ SCH (12:42)
[2021-09-09] MEDS: FUROSEMIDE 40 MG TABLET PO SCH (12:43)
[2021-09-09] MEDS: ONDANSETRON 4 MG/2 ML VIAL IV PRN ×2 (12:43→21:12)
[2021-09-09] MEDS: FAMOTIDINE 20 MG TAB PO SCH ×2 (12:43→21:00)
[2021-09-09] MEDS: VITAMIN D 1000 UNIT TAB PO SCH (12:46)
[2021-09-09] MEDS: METHYLPREDNISOLONE 125 MG INJ IV SCH ×2 (12:47→21:00)
[2021-09-09] MEDS: ASPIRIN EC 81 MG TAB PO SCH (12:49)
[2021-09-09] MEDS: THIAMINE HCL 100 MG TABLET PO SCH (12:51)
[2021-09-09] MEDS ORDERED: THIAMINE HCL 100 MG TABLET ONE (12:52)
[2021-09-09 15:54] LABS: Urine Appearance CLEAR (Clear); Urine Bilirubin NEGATIVE (Negative); Urine Blood NEGATIVE (Negative); Urine Color YELLOW (Yellow); Urine Glucose NEGATIVE (Negative); Urine Protein NEGATIVE (Negative); Urine Specific Gravity 1.015 (1.005-1.030)
[2021-09-09 15:56] LABS: Urine Microscopic Reflex NO UMIC
[2021-09-09] MEDS: IPRATROPIUM BROM 0.5MG/2.5ML IH SCH ×2 (16:00→20:00)
[2021-09-09] MEDS ORDERED: METHYLPREDNISOLONE 40 MG INJ ONE (20:54)
[2021-09-10 04:25] LABS: Absolute Lymphocytes (CBC) 0.6 K/uL (0.7-4.9); Hematocrit 34.9 % (36.0-45.0); Lymphocytes % 45.9 % (15.3-44.8); MPV 7.6 fL (7.6-11.3); RBC Red Blood Cell Count 3.77 M/uL (3.86-4.86)
[2021-09-10 04:46] LABS: Albumin 2.8 g/dL (3.4-5.0); Bilirubin Total 0.2 mg/dL (0.2-1.0); Magnesium 2.3 mg/dL (1.8-2.4); Phosphorus 3.3 mg/dL (2.5-4.9); Potassium 4.3 mmol/L (3.5-5.1); Thyroid Stimulating Hormone 0.082 uIU/mL (0.360-3.740)
[2021-09-10] MEDS: INSULIN -REGULAR HUMAN 50 UNIT/0.5 ML ML SQ SCH ×2 (07:30→11:30)
[2021-09-10] MEDS ORDERED: ALBUTEROL INHALER 60 PUFF/8 GM IH ONE (07:40)
[2021-09-10] MEDS ORDERED: METHYLPREDNISOLONE 125 MG INJ ONE (08:25)
[2021-09-10] MEDS ORDERED: ASCORBIC ACID 500 MG TABLET ONE ×2 (08:26→12:04)
[2021-09-10] MEDS ORDERED: THIAMINE HCL 100 MG TABLET ONE (08:26)
[2021-09-10] MEDS ORDERED: FUROSEMIDE 40 MG TABLET ONE ×2 (08:26→09:23)
[2021-09-10] MEDS ORDERED: VITAMIN D 1000 UNIT TAB ONE (08:27)
[2021-09-10] MEDS ORDERED: ZINC SULFATE 220 MG CAP ONE (08:27)
[2021-09-10] MEDS ORDERED: ASPIRIN EC 81 MG TAB PO ONE (08:27)
[2021-09-10] MEDS ORDERED: ENOXAPARIN 40 MG/0.4 ML SQ ONE (08:28)
[2021-09-10] MEDS ORDERED: FAMOTIDINE 20 MG TAB ONE (08:28)
[2021-09-10] MEDS ORDERED: MORPHINE 2 MG/ML SYR ONE (08:29)
[2021-09-10 08:38] VITALS: TEMP 98.5
[2021-09-10 09:00] LABS: Blood Morphology Comment NOT SEEN (NOT SEEN); Platelet Estimate ADEQ; White Blood Cell Scan OK (OK)
[2021-09-10] MEDS: ASPIRIN EC 81 MG TAB PO SCH (09:00)
[2021-09-10] MEDS: ENOXAPARIN 40 MG/0.4 ML SQ SCH (09:00)
[2021-09-10] MEDS: VITAMIN D 1000 UNIT TAB PO SCH (09:00)
[2021-09-10] MEDS: FAMOTIDINE 20 MG TAB PO SCH (09:00)
[2021-09-10] MEDS: ZINC SULFATE 220 MG CAP PO SCH (09:00)
[2021-09-10] MEDS: METHYLPREDNISOLONE 125 MG INJ IV SCH (09:00)
[2021-09-10] MEDS: THIAMINE HCL 100 MG TABLET PO SCH (09:00)
[2021-09-10] MEDS: ASCORBIC ACID 500 MG TABLET PO SCH ×2 (09:00→13:00)
[2021-09-10] MEDS: FUROSEMIDE 40 MG TABLET PO SCH (09:00)
[2021-09-10] MEDS ORDERED: ONDANSETRON 4 MG/2 ML VIAL ONE (09:14)
[2021-09-10 09:18] VITALS: O2SAT 94
[2021-09-10] MEDS: MORPHINE 2 MG/ML SYR IV PRN (09:54)
[2021-09-10] MEDS: ONDANSETRON 4 MG/2 ML VIAL IV PRN (09:55)
[2021-09-10 12:11] VITALS: BP 135/92
[2021-09-10] MEDS ORDERED: predniSONE 20 MG TAB PO SCH (21:00)
--- NOTE | 2021-09-10 23:49 | P.DS ---
Discharge Date: 09/10/21 Disposition: ROUTINE DISCHARGE Discharge Condition: GOOD Reason for Admission: copd exacerbation, covid, edema Brief History of Present Illness: Ms. Riojas is a 55 yo F with breast cancer currently receiving chemotherapy, CHF, history of CVA, CAD, DM, HTN, HLD, COPD who presents with 10/10 intermittent squeezing sternal chest pain, shortness of breath. She says the pain moves down her left leg and left arm and is worse with movement. No relief with nitroglycerin. Denies cough, fever, nausea, vomiting and diarrhea. Found to be COVID+ in the ED. She has an audible wheeze and has had COPD exacerbation in the past. She also reports edema in her legs and her left arm for the last week. She says she is so swollen that she cannot walk. She was supposed to have chemotherapy today but when she called her oncologist, he told her to go to the ED. Venous ultrasound negative for DVT. CTPE negative for PE. Hospital Course: Patient has done well during hospital stay. Oxygenation is stable. Patient is clinically doing well. At this time, patient is stable for discharge at home. Vital Signs/Physical Exam: Temp Pulse Resp BP Pulse Ox 98.5 F 75 20 135/92 H 97 09/10/21 08:35 09/10/21 12:00 09/10/21 12:00 09/10/21 12:00 09/10/21 12:00 General: Alert, In no apparent distress, Oriented x3 Laboratory Data at Discharge: WBC 1.40 K/uL (4.3-10.9) L* D 09/10/21 04:02 Hgb 11.4 g/dL (12.0-15.0) L 09/10/21 04:02 Hct 34.9 % (36.0-45.0) L 09/10/21 04:02 Plt Count 226 K/uL (152-406) D 09/10/21 04:02 PT 11.2 SECONDS (9.5-12.5) 09/08/21 11:01 INR 0.97 09/08/21 11:01 Sodium 136 mmol/L (136-145) 09/10/21 04:02 Potassium 4.3 mmol/L (3.5-5.1) 09/10/21 04:02 BUN 12 mg/dL (7-18) 09/10/21 04:02 Creatinine 0.85 mg/dL (0.55-1.3) 09/10/21 04:02 Glucose 138 mg/dL (74-106) H 09/10/21 04:02 Phosphorus 3.3 mg/dL (2.5-4.9) 09/10/21 04:02 Magnesium 2.3 mg/dL (1.8-2.4) 09/10/21 04:02 Total Bilirubin 0.2 mg/dL (0.2-1.0) 09/10/21 04:02 AST 14 U/L (15-37) L 09/10/21 04:02 ALT 21 U/L (12-78) 09/10/21 04:02 Alkaline Phosphatase 43 U/L (45-117) L 09/10/21 04:02 Troponin I < 0.02 ng/mL (0.0-0.045) 09/09/21 20:54 Triglycerides 76 mg/dL (<150) 09/10/21 04:02 Cholesterol 193 mg/dL (<200) 09/10/21 04:02 HDL Cholesterol 57 mg/dL (40-60) 09/10/21 04:02 Cholesterol/HDL Ratio 3.39 09/10/21 04:02 Home Medications: Albuterol Neb [Proventil 0.083% Neb Soln] 2.5 mg IH Q4H PRN 12/18/18 Furosemide [Lasix] 40 mg PO SEECOM 12/18/18 Levalbuterol HCl [Xopenex] 0.63 mg IH Q4H PRN 12/18/18 Metoprolol Tartrate [Lopressor] 100 mg PO DAILY 12/18/18 Potassium Chloride [Klor-Con M10] 10 meq PO DAILY 12/18/18 carvediloL [Coreg*] 6.25 mg PO BID 12/18/18 cloNIDine HCL [Catapres] 0.3 mg PO DAILY 12/18/18 Amlodipine [Norvasc*] 5 mg PO DAILY #30 tab 12/20/18 Fluticasone/Salmeterol [Advair 250-50 Diskus] 1 each IH BID #1 blst.w.dev 12/20/18 Nitroglycerin [Nitrostat] 0.25 mg SL BID PRN 12/20/18 metroNIDAZOLE [Flagyl*] 500 mg PO BID #28 tablet 12/20/18 predniSONE [Prednisone*] 20 mg PO BID #10 tab 12/20/18 Pregabalin [Lyrica] 75 mg PO BID #60 cap 09/10/21 New Medications: Pregabalin [Lyrica] 75 mg PO BID #60 cap Physician Discharge Instructions: OK TO DC IV AND DC HOME FOLLOW-UP WITH PCP IN 1-2 WEEKS FOLLOW-UP WITH ONCOLOGY IN 2 WEEKS RETURN TO THE ER IF SYMPTOMS WORSENS CONTINUE ON TAPERING DOSE OF PREDNISONE FOR [address] WILLIAMSON AT [phone] IF ANY QUESTIONS RE: HOSPITAL STAY Diet: AHA Activity: Fall precautions Followup: Vickie STEPHEN,Nikole Vigil DO [Primary Care Provider] - Time spent managing pt's care (in minutes): 35
== END 2021-09-10 15:41 | disposition home or self-care (01) ==
LOC: ER 10:36 → ERHOLD 09-09 02:47
PROVIDERS: ADMIT Hospitalist; ATTEND Hospitalist
DX: U07.1 COVID-19 (principal); J44.1 Chronic obstructive pulmonary disease with (acute) exacerbation; I11.0 Hypertensive heart disease with heart failure; I50.32 Chronic diastolic (congestive) heart failure; E11.9 Type 2 diabetes mellitus without complications; I25.10 Atherosclerotic heart disease of native coronary artery without angina pectoris; I25.2 Old myocardial infarction; E78.5 Hyperlipidemia, unspecified; C50.919 Malignant neoplasm of unspecified site of unspecified female breast; D64.9 Anemia, unspecified; Z86.73 Personal history of transient ischemic attack (TIA), and cerebral infarction without residual deficits; Z88.8 Allergy status to other drugs, medicaments and biological substances; Z82.49 Family history of ischemic heart disease and other diseases of the circulatory system
CPT/HCPCS: 93005; 85025 ×2; 80048; 36415 ×2; 83735 ×2; 84100; 85610; 80061; 82947 ×5; 80076; 84443; 81003; 84484 ×3; 84439; 82728; 80053; 84145; 83880 ×2; 86140; 71275; 71045; 93971; 93970; 94760; 99285; U0003; Q9967; J1940; J1650 ×2; J2270 ×4; J2930 ×2; J2405 ×3; J2920; G0378 ×3

== ENCOUNTER 2024-02-10 13:12 | Inpatient (IN) | payer OTHER ==
--- OUTSIDE RECORDS SUMMARY | 2024-02-10 13:15 | XMS REPORT | Clinical Summary ---
Author Name Unknown Organization [facility] Address [address] [place] [address] Care Team Providers Care Wide Load Escort Name Role Phone Ginger Juárez MD Unavailable [phone] Social History Tobacco Use Types Packs/Day Years Used Date Smoking Tobacco: Never Assessed Sex and Gender Information Value Date Recorded Sex Assigned at Not on file Gender Identity Not on file Sexual Orientation Not on file Job Start Date Occupation Industry Not on file Not on file Not on file Plan of Treatment Health Maintenance Due Date Last Done Comments COVID-19 Vaccine ( season) 2023 Influenza Vaccine 05/10/2024 Care Teams Wide Load Escort Relationship Specialty Start Date End Date Ginger Juárez MD [address] [place] [id number] PCP - External Follow Up [facility] 02/02/21
[2024-02-10] MEDS ORDERED: NA CHLORIDE 0.9% 250 ML ONE (13:33)
[2024-02-10] MEDS ORDERED: AZITHROMYCIN 500 MG INJ IVPB ONE (13:33)
[2024-02-10] MEDS ORDERED: ALBUTEROL 2.5 MG/3 ML NEB SOL ONE (13:33)
[2024-02-10] MEDS ORDERED: CEFTRIAXONE 1000 MG/VIAL ONE (13:33)
[2024-02-10] MEDS ORDERED: METHYLPREDNISOLONE 125 MG INJ ONE (13:33)
[2024-02-10] MEDS ORDERED: Magnesium Sulfate 2gm IVPB 2 G/50 ML BAG IV ONE (13:33)
[2024-02-10] MEDS ORDERED: IPRATROPIUM BROM 0.5MG/2.5ML ONE (13:33)
[2024-02-10 13:56] LABS: Absolute Lymphocytes (CBC) 2.1 K/uL (0.7-4.9); Absolute Monocytes 0.6 K/uL (0.1-1.3); Absolute Neutrophil 4.7 K/uL (1.8-8.0); Basophils % 0.4 % (0-1.3); Eosinophils % 0.6 % (0-4.4); Hematocrit 38.8 % (36.0-45.0); Hemoglobin 12.1 g/dL (12.0-15.0); Lymphocytes % 27.9 % (15.3-44.8); MCH 29.3 pg (27.0-35.0); MCHC 31.1 g/dL (32.0-36.0); MPV 7.8 fL (7.6-11.3); Monocytes % 7.6 % (3.3-12.3); Neutrophils % 63.5 % (41.7-73.7); Platelets 251 thou/uL (152-406); RBC Red Blood Cell Count 4.12 M/uL (3.86-4.86); Red Cell Distribution Width 13.4 % (12.1-15.2)
[2024-02-10 14:03] LABS: PTT, Activated Partial Thromb 27.9 SECONDS (24.3-36.9)
[2024-02-10 14:15] LABS: Anion Gap 5.6 mEq/L (5.0-15.0); Potassium 3.6 mEq/L (3.5-5.1); Troponin High Sensitivity 6.1 pg/mL (<58.9)
--- NOTE | 2024-02-10 14:34 | RAD REPORT ---
EXAM DESCRIPTION: [place] Single View02/10/2024 1:47 pm CLINICAL HISTORY: DYSPNEA COMPARISON: Chest Single View dated 09/08/2021; Chest Single View dated 08/24/2021; Chest Single Vie w dated 12/18/2018; Chest Single View dated 04/06/2018 TECHNIQUE: Portable AP view of the chest. FINDINGS: Left Port-A-Cath in place, with catheter tip projecting at the mid SVC. The lungs are emerson r. No pneumothorax or effusion. The cardiomediastinal contours are unremarkable. IMPRESSION: No acute cardiopulmonary process.
[2024-02-10 16:42] LABS: INFLUENZA A NAA NEGATIVE (NEGATIVE); RESPIRATORY SYNCYTIAL VIR NAA NEGATIVE (NEGATIVE); SARS-COV-2 RT PCR NEGATIVE (NEGATIVE)
--- NOTE | 2024-02-10 16:48 | ER ---
Nurse's Notes [facility] Name: Martha Riojas Age: 58 yrs Sex: Female : 1965 Arrival Date: 02/10/2024 Time: 13:12 Bed 2 Private MD: Diagnosis: COPD/ Chronic obstructive pulmonary disease with (acute) exacerbation;Sepsis, unspecified organism Presentation: 02/09 13:20 Chief complaint: Patient states: SOB x2 WK, SEEN FOR SAME x2 IN ER, NO IMPROVEMENT S/S. bp Coronavirus screen: At this time, the client does not indicate any symptoms associated with coronavirus-19. Ebola Screen: No symptoms or risks identified at this time. Initial Sepsis Screen: Does the patient meet any 2 criteria? HR > 90 bpm. No. Patient's initial sepsis screen is negative. Does the patient have a suspected source of infection? No. Patient's initial sepsis screen is negative. Risk Assessment: Do you want to hurt yourself or someone else? Patient reports no desire to harm self or others. Note LAST CHEMO x2 WK. Onset of symptoms is unknown. 13:20 Method Of Arrival: Ambulatory bp 13:20 Acuity: SOL 3 bp Triage Assessment: 13:21 General: Appears distressed, Behavior is calm, cooperative, appropriate for age. Pain: bp Denies pain. EENT: No deficits noted. Neuro: No deficits noted. Cardiovascular: Rhythm is sinus tachycardia. Respiratory: Reports shortness of breath cough that is Breath sounds with wheezes bilaterally. Onset: The symptoms/episode began/occurred 2 WK, the patient has moderate shortness of breath. GI: No signs and/or symptoms were reported involving the gastrointestinal system. : No signs and/or symptoms were reported regarding the genitourinary system. Derm: No deficits noted. Musculoskeletal: No deficits noted. Historical: - Allergies: 13:29 No Known Allergies; bp - PMHx: 13:21 bilateral breast cancer; Hypertensive disorder; Congestive heart failure; bp - PSHx: 13:21 back; lumpectomy; bp - Immunization history:: Adult Immunizations up to date. - Infectious Disease History:: Denies. - Social history:: Smoking status: Patient denies any tobacco usage or history of. Screenin:22 [facility] ED Fall Risk Assessment (Adult) History of falling in the last 3 months, rs5 including since admission No falls in past 3 months (0 pts) Confusion or Disorientation No (0 pts) Intoxicated or Sedated No (0 pts) Impaired Gait No (0 pts) Mobility Assist Device Used No (0 pt) Altered Elimination No (0 pt) Score/Fall Risk Level 0 - 2 = Low Risk Oriented to surroundings, Maintained a safe environment. Abuse screen: Denies threats or abuse. Nutritional screening: No deficits noted. Tuberculosis screening: No symptoms or risk factors identified. Assessment: 13:22 General: Appears distressed, uncomfortable, Behavior is cooperative. Pain: Denies pain. rs5 Neuro: Level of Consciousness is awake, alert, obeys commands, Oriented to person, place, time, situation. Cardiovascular: Patient's skin is warm and dry. Rhythm is regular. Respiratory: Airway is patent Respiratory effort is labored, Respiratory pattern is symmetrical, hyperventilation. GI: Abdomen is round non-distended, Abd is soft and non tender X 4 quads. : No signs and/or symptoms were reported regarding the genitourinary system. EENT: No signs and/or symptoms were reported regarding the EENT system. Derm: Skin is intact, Skin is dry, Skin is normal, Skin temperature is warm. Musculoskeletal: Range of motion: intact in all extremities. 14:25 Reassessment: Patient and/or family updated on plan of care and expected duration. Pain rs5 level reassessed. Patient is alert, oriented x 3, equal unlabored respirations, skin warm/dry/pink. Respiratory: Respiratory effort is even, unlabored, Respiratory pattern is regular, symmetrical, 15:16 Reassessment: No changes from previously documented assessment. rs5 16:22 Reassessment: Patient and/or family updated on plan of care and expected duration. Pain rs5 level reassessed. Patient is alert, oriented x 3, equal unlabored respirations, skin warm/dry/pink. 17:49 Reassessment: No changes from previously documented assessment. rs5 Vital Signs: 13:20 BP 185 / 111; Pulse 102; Resp 28; Temp 98; Pulse Ox 83% on R/A; bp 14:28 BP 144 / 93; Pulse 77; Resp 20; Temp 97.1(TE); Pulse Ox 97% on 5 lpm NC; Weight 117.93 em1 kg; Height 5 ft. 3 in. (R); Pain 0/10; 15:17 BP 136 / 90; Pulse 80; Resp 18; Pulse Ox 97% on 4 lpm NC; rs5 16:45 BP 154 / 82; Pulse 72; Resp 16; Pulse Ox 100% ; ko1 19:10 BP 163 / 76; Pulse 73; Resp 16; Pulse Ox 97% on 5 lpm NC; vc1 14:28 Body Mass Index 46.06 (117.93 kg, 160.02 cm) em1 14:28 Pain Scale: Adult em1 ED Course: 13:16 Patient arrived in ED. mg5 13:18 Dashawn Linda MD is Attending Physician. ec2 13:21 Triage completed. bp 13:22 Patient has correct armband on for positive identification. Placed in gown. Bed in low rs5 position. Call light in reach. Side rails up X2. 13:22 No provider procedures requiring assistance completed. rs5 13:23 Arm band placed on. bp 13:30 Provided Education on: call light. Client placed on continuous cardiac and pulse ko1 oximetry monitoring. NIBP monitoring applied. potline monitor on. Door closed. Noise minimized. Lights dimmed. Warm blanket given. Pillow given. 13:40 X-ray completed. Portable x-ray completed in exam room. Patient tolerated procedure mh1 well. 13:41 Initial lab(s) drawn, by me, sent to lab. First set of blood cultures drawn by me. em1 Inserted saline lock: 20 gauge in right antecubital area, using aseptic technique. Blood collected. 13:49 XRAY Chest (1 view) In Process Unspecified. EDMS 13:54 Dave Soliman, OSITO is Primary Nurse. rs5 14:00 Second set of blood cultures drawn by me, EKG done, by ED staff, reviewed by Dashawn Linda MD. 16:48 Luis A Hamilton MD is Hospitalizing Provider. ec2 17:27 Chest For Pe Angio In Process Unspecified. EDMS 18:20 Patient admitted, IV remains in place. ko1 Administered Medications: 13:45 Drug: DuoNeb Nebulize (3:1) (2.5 mg - 0.5 mg) 3 ml Nebulizer once Route: Nebulizer; rs5 14:01 Follow up: Response: No adverse reaction rs5 13:45 Drug: Rocephin IV 1 grams IV at calculated rate once; Given slow IV push per pharmacy rs5 instructions Route: IV; Rate: calculated rate; Site: right antecubital; 14:01 Follow up: Response: No adverse reaction rs5 13:45 Drug: AZITHromycin IVPB 500 mg IVPB once over 1 hrs; (mix in 250 mL NS) Route: IVPB; rs5 Infused Over: 1 hrs; Site: right antecubital; 14:05 Follow up: Response: No adverse reaction rs5 13:45 Drug: Magnesium Sulfate IVPB 2 grams IVPB once over 30 mins Route: IVPB; Infused Over: rs5 30 mins; Site: right antecubital; 14:05 Follow up: Response: No adverse reaction rs5 13:45 Drug: MethylPrednisoLONE IVP 125 mg IVP once Route: IVP; Site: right antecubital; rs5 14:05 Follow up: Response: No adverse reaction rs5 Medication: 15:15 VIS not applicable for this client. rs5 Outcome: 16:48 Decision to Hospitalize by Provider. ec2 18:20 Admitted to Med/surg accompanied by tech, via wheelchair, room 211, with oxygen, with ko1 chart, 18:20 Condition: improved 18:20 Instructed on the need for admit, 19:10 Patient left the ED. vc1 Signatures: Dispatcher [employer] Lisseth Montes 1 Alberto Zambrano 1 Bakari Ashley RN RN bp Calcote, Vanessa, RN RN vc1 Soledad Jeffries RN RN ko1 Dave Soliman RN RN rs5 Mercedes Reyes 5 Dashawn Linda MD MD ec2 Corrections: (The following items were deleted from the chart) 13:29 13:21 Allergies: Corticosteroids (Glucocorticoids); bp bp 13:29 13:21 Allergies: "Steroids but I take them sometimes because I have to." [Inactive]; bp bp
--- NOTE | 2024-02-10 16:48 | EDPHYS ---
Physician Documentation [facility] Name: Martha Riojas Age: 58 yrs Sex: Female : 1965 Arrival Date: 02/10/2024 Time: 13:12 Bed 2 Private MD: ED Physician Dashawn Linda HPI: 02/09 13:59 This 58 yrs old Black Female presents to ER via Ambulatory with complaints of Breathing ec2 Difficulty. 13:59 Patient arrives today for evaluation of difficulty breathing. Patient reports that she ec2 been experiencing difficulty breathing worsening for the past several days. Patient reports occasional cough. Reports history of COPD. States that she takes inhalers at home as well as steroids however had minimal alleviation in symptoms. Patient reports no issues with vomiting or diarrhea. . Historical: - Allergies: 13:29 No Known Allergies; bp - PMHx: 13:21 bilateral breast cancer; Hypertensive disorder; Congestive heart failure; bp - PSHx: 13:21 back; lumpectomy; bp - Immunization history:: Adult Immunizations up to date. - Infectious Disease History:: Denies. - Social history:: Smoking status: Patient denies any tobacco usage or history of. ROS: 14:00 Constitutional: as per hpi ec2 Exam: 14:00 Constitutional: GEN: NAD Head: atraumatic Eyes: EOMI Ears: External ears are ec2 normal. CV: Tachycardia LUNGS: Tachypnea, scattered wheezes noted throughout all lung figueroa. ABD: non-distended SKIN: no evidence of rashes MSK: no evidence of trauma NEURO: moves all extremities equally Vital Signs: 13:20 BP 185 / 111; Pulse 102; Resp 28; Temp 98; Pulse Ox 83% on R/A; bp 14:28 BP 144 / 93; Pulse 77; Resp 20; Temp 97.1(TE); Pulse Ox 97% on 5 lpm NC; Weight 117.93 em1 kg; Height 5 ft. 3 in. (R); Pain 0/10; 15:17 BP 136 / 90; Pulse 80; Resp 18; Pulse Ox 97% on 4 lpm NC; rs5 16:45 BP 154 / 82; Pulse 72; Resp 16; Pulse Ox 100% ; ko1 19:10 BP 163 / 76; Pulse 73; Resp 16; Pulse Ox 97% on 5 lpm NC; vc1 14:28 Body Mass Index 46.06 (117.93 kg, 160.02 cm) em1 14:28 Pain Scale: Adult em1 MDM: 13:18 Patient medically screened. ec2 13:59 Data reviewed: vital signs. ED course: EKG independently reviewed and interpreted by ec2 , shows normal sinus rhythm, rate of 77, no acute ST segment elevations, intervals are nonconcerning. 14:00 ED course: Patient arrives today for evaluation of shortness of breath. Examination ec2 remarkable for tachypneic individual is slightly tachycardic along with scattered wheezes throughout all lung figueroa. Will obtain a septic workup, chest x-ray, empirically treat with antibiotics, steroids as well as DuoNeb. Differential diagnosis includes COPD exacerbation, pneumonia, viral infection.. 14:35 ED course: Metabolic profile with appropriate electrolytes and renal function, BNP ec2 within normal ranges, troponin within normal ranges, lactate within normal ranges. CBC is nonactionable. Chest x-ray independently reviewed and interpreted by me, shows no acute intrathoracic process. . 16:47 ED course: On reassessment patient with marked improvement in her symptoms, breathing ec2 more comfortably, improvement in aeration throughout all lung figueroa. Patient remains on oxygen, saturating in the mid to upper 90s. Will admit for COPD exacerbation. Discussed case with hospitalist, pending admission.. 16:48 ED course: MDM: Differential diagnosis as documented above in ED course; All lab tests ec2 ordered and reviewed as documented above; Independent interpretation of tests: EKG as above; I discussed the case with: Hospitalist . 02/09 13:18 Order name: Basic Metabolic Panel; Complete Time: 14:34 ec2 02/09 13:18 Order name: CBC with Diff; Complete Time: 14:01 ec2 02/09 13:18 Order name: NT PRO-BNP; Complete Time: 14:34 ec2 02/09 13:18 Order name: PT-INR ec2 02/09 13:18 Order name: Troponin HS; Complete Time: 14:34 ec2 02/09 13:22 Order name: Blood Culture Adult (2) ec2 02/09 13:22 Order name: Lactate w/ 2H reflex if indic.; Complete Time: 14:34 ec2 02/09 13:22 Order name: Ptt, Activated ec2 02/09 13:24 Order name: COVID-19/FLU A+B/RSV; Complete Time: 16:45 ec2 02/09 17:23 Order name: ABG Arterial Blood Gas EDMS 02/09 13:18 Order name: XRAY Chest (1 view); Complete Time: 14:35 ec2 02/09 17:10 Order name: Chest For Pe Angio EDMS 02/09 17:13 Order name: Echo with Doppler EDMS 02/09 17:17 Order name: Extrem Venous W Compress Lamont EDMS 02/09 13:18 Order name: EKG; Complete Time: 13:18 ec2 02/09 13:18 Order name: Cardiac monitoring; Complete Time: 14:11 ec2 02/09 13:18 Order name: EKG - Nurse/Tech; Complete Time: 14:11 ec2 02/09 13:18 Order name: IV Saline Lock; Complete Time: 13:48 ec2 02/09 13:18 Order name: Labs collected and sent; Complete Time: 13:48 ec2 02/09 13:18 Order name: O2 Per Protocol; Complete Time: 13:28 ec2 02/09 13:18 Order name: O2 Sat Monitoring; Complete Time: 13:28 ec2 02/09 13:22 Order name: Accucheck; Complete Time: 13:55 ec2 /03 13:22 Order name: IV Saline Lock - Large Bore; Complete Time: 13:48 ec2 03 13:22 Order name: Vital Signs; Complete Time: 13:55 ec2 03 14:11 Order name: Vital Signs; Complete Time: 14:27 ec2 Administered Medications: 13:45 Drug: DuoNeb Nebulize (3:1) (2.5 mg - 0.5 mg) 3 ml Nebulizer once Route: Nebulizer; rs5 14:01 Follow up: Response: No adverse reaction rs5 13:45 Drug: Rocephin IV 1 grams IV at calculated rate once; Given slow IV push per pharmacy rs5 instructions Route: IV; Rate: calculated rate; Site: right antecubital; 14:01 Follow up: Response: No adverse reaction rs5 13:45 Drug: AZITHromycin IVPB 500 mg IVPB once over 1 hrs; (mix in 250 mL NS) Route: IVPB; rs5 Infused Over: 1 hrs; Site: right antecubital; 14:05 Follow up: Response: No adverse reaction rs5 13:45 Drug: Magnesium Sulfate IVPB 2 grams IVPB once over 30 mins Route: IVPB; Infused Over: rs5 30 mins; Site: right antecubital; 14:05 Follow up: Response: No adverse reaction rs5 13:45 Drug: MethylPrednisoLONE IVP 125 mg IVP once Route: IVP; Site: right antecubital; rs5 14:05 Follow up: Response: No adverse reaction rs5 Disposition: 16:47 Critical Care:. ec2 Disposition Summary: 02/10/24 16:48 Hospitalization Ordered Notes: Hospitalization Status: Inpatient Admission ec2 Provider: Luis A Hamilton ec2 Location: Telemetry/MedSurg (Inpatient) ec2 Condition: Stable ec2 Problem: an acute exacerbation ec2 Symptoms: have improved ec2 Bed/Room Type: Standard ec2 Room Assignment: 211(02/10/24 17:39) bd Diagnosis - COPD/ Chronic obstructive pulmonary disease with (acute) exacerbation ec2 - Sepsis, unspecified organism ec2 Forms: - Medication Reconciliation Form ec2 - SBAR form ec2 - Leadership Thank You Letter ec2 Critical care time excluding procedures: 16:47 Critical care time: Bedside Care: 30 minutes, Consultation: 5 minutes. Total time: 35 ec2 minutes Signatures: Dispatcher [employer] EDJennifer Padilla Brian, RN RN bp Dave Soliman RN RN rs5 Dashawn Linda MD MD ec2 Corrections: (The following items were deleted from the chart) 13:25 13:24 COVID-19/FLU A+B/RSV+MOL.LAB.BRZ ordered. EDHI EDMS 13:29 13:21 Allergies: Corticosteroids (Glucocorticoids); bp bp 13:29 13:21 Allergies: "Steroids but I take them sometimes because I have to." [Inactive]; bp bp 17:39 16:48 ec2 bd
[2024-02-10] MEDS: APIXABAN 2.5 MG TABLET PO ONE (17:13)
--- NOTE | 2024-02-10 17:21 | P.HP ---
Certification for Inpatient With expected LOS: >2 Midnights Patient will require the following post-hospital care: None Practitioner: I am a practitioner with admitting privileges, knowledge of patient current condition, hospital course, and medical plan of care. Services: Services provided to patient in accordance with Admission requirements found in Title 42 Section 412.3 of the Code of Federal Regulations Patient History Date of Service: 02/10/24 Reason for admission: Shortness of breath hypoxemia History of Present Illness: Patient is 58 years of age has been having progressive dyspnea for the past 3 weeks patient has been to [facility] emergency room couple of times has been treated outpatient with steroids nebulizers and with no relief. History of breast cancer treated with chemo and lumpectomy last chemo was 2 weeks ago in [place] denies any lower extremity edema no fever or chills Allergies Corticosteroids (Glucocorticoids) Adverse Reaction (Verified 09/09/21 11:31) Hives Home Medications: Albuterol Neb [Proventil 0.083% Neb Soln] 2.5 mg IH Q4H PRN 12/18/18 Furosemide [Lasix] 40 mg PO SEECOM 12/18/18 Metoprolol Tartrate [Lopressor] 100 mg PO DAILY 12/18/18 Potassium Chloride [Klor-Con M10] 10 meq PO DAILY 12/18/18 carvediloL [Coreg*] 6.25 mg PO BID 12/18/18 cloNIDine HCL [Catapres] 0.3 mg PO DAILY 12/18/18 levalbuterol HCL [Xopenex] 0.63 mg IH Q4H PRN 12/18/18 Amlodipine [Norvasc*] 5 mg PO DAILY #30 tab 12/20/18 Fluticasone/Salmeterol [Advair 250-50 Diskus] 1 each IH BID #1 blst.w.dev 12/20/18 Nitroglycerin [Nitrostat] 0.25 mg SL BID PRN 12/20/18 metroNIDAZOLE [Flagyl*] 500 mg PO BID #28 tablet 12/20/18 predniSONE [Prednisone*] 20 mg PO BID #10 tab 12/20/18 Pregabalin [Lyrica] 75 mg PO BID #60 cap 09/10/21 - Past Medical/Surgical History Diabetic: Yes -: Diastolic dysfunction -: HTN -: Diabetes mellitus type 2 -: COPD -: Previous [place] -: Previous CVA -: Hyperlipidemia -: Asthma -: breast cancer -: CHF -: HLD -: Right arm cyst removed -: Back surgery -: Hernia repair Psychosocial/ Personal History: She is a , has 5 children. She does not work. - Family History Mother -: Heart disease, Lung disease Father -: Heart disease - Social History Alcohol use: No CD- Drugs: No Caffeine use: No Review of Systems 10-point ROS is otherwise unremarkable General: Weakness Respiratory: Shortness of Breath Physical Examination - Vital Signs Temperature: 98 F Blood Pressure: 144/93 Pulse: 77 Respirations: 28 Pulse Ox (%): 83 - Physical Exam General: Alert, In no apparent distress HEENT: Atraumatic Neck: Supple Respiratory: Clear to auscultation bilaterally, Diminished Cardiovascular: No edema, Regular rate/rhythm, Normal S1 S2 Gastrointestinal: Normal bowel sounds, Soft and benign, Non-distended Musculoskeletal: No clubbing, No swelling Integumentary: No rashes, No breakdown Neurological: Normal gait, Normal speech, Normal strength at 5/5 x4 extr - Studies Laboratory Data (last 24 hrs) 02/10/24 02/10/24 02/10/24 13:41 13:41 13:41 WBC 7.50 Hgb 12.1 Hct 38.8 Plt Count 251 APTT 27.9 Sodium 137 Potassium 3.6 BUN 8 Creatinine 0.80 Glucose 89 Assessment and Plan - Problems (Diagnosis) (1) Respiratory failure Current Visit: Yes Status: Acute Plan: Patient is 58 years of age with a history of just of heart failure possible underlying obstructive airways disease recently diagnosed with breast cancer undergoing chemo therapy last chemotherapy was 2 weeks ago has been complaining of progressive dyspnea chest x-ray is clear went to [facility] emergency room a couple of times again with no relief tried bronchodilators and steroids at home and PE is normal doubt CHF risk for thromboembolism I will do CT pulmonary angiogram empirically anticoagulate 1 dose of Lasix and spironolactone 2D echocardiogram with Solu-Medrol labs reviewed and normal chemistry is also normal also ordered arterial blood gases - Advance Directives Does patient have a Living Will: No Does patient have a Durable POA for Healthcare: No
[2024-02-10 17:46] LABS: Arterial Blood Carboxyhemoglob 0.9 % (0-1.5); Blood Gas Oxyhemoglobin 93.2 % (94-97); Blood Gas THB 12.8 g/dl (12-18); Blood O2 Saturation 96.1 % (92-98.5)
[2024-02-10 20:48] VITALS: BMI 46.0
[2024-02-10] MEDS: ARFORMOTEROL TARTRATE 15 MCG/2 ML VIAL.NEB NEB SCH (20:54)
[2024-02-10] MEDS: ALBUTEROL 2.5 MG/3 ML NEB SOL NEB SCH (20:54)
[2024-02-10] MEDS: IPRATROPIUM BROM 0.5MG/2.5ML NEB SCH (20:54)
[2024-02-10] MEDS: INSULIN REGULAR (HUMAN) 100 UNIT/ML SQ SCH (21:00)
[2024-02-10] MEDS: Enoxaparin 120 MG/0.8 ML SYR SQ SCH (21:41)
[2024-02-10] MEDS: SPIRONOLACTONE 25 MG TABLET PO SCH (21:41)
[2024-02-10] MEDS: METHYLPREDNISOLONE 125 MG INJ IV SCH (21:42)
[2024-02-10] MEDS: HYDROCODONE/APAP 5/325 MG TAB PO ONE (21:42)
[2024-02-10] MEDS: FUROSEMIDE 40 MG/4 ML VIAL IV SCH (21:42)
[2024-02-10 22:59] LABS: PT Prothrombin Time 10.6 SECONDS (9.5-12.5); Protime INR 0.96
--- NOTE | 2024-02-10 23:53 | RAD REPORT ---
EXAM DESCRIPTION: CT - Chest For Pe Angio - 02/10/2024 5:25 pm CLINICAL HISTORY: RO PE COMPARISON: Chest For Pe Angio dated 09/08/2021; Chest For Pe Angio dated 08/24/2021; Chest For Pe A ngio dated 01/16/2019; Chest For Pe Angio dated 02/28/2018 TECHNIQUE: Thin axial CT images of the chest were obtained following administration of iodinated co ntrast intravenous. Multiplanar reconstructions, and maximum intensity projection reconstructions wer e generated and reviewed. Exam utilizes a protocol for optimal evaluation of pulmonary arterial tree. All CT scans are performed using dose optimization technique as appropriate and may include automated exposure control or mA/KV adjustment according to patient size. FINDINGS: Left chest wall Port-A-Cath in place. Pulmonary arteries are normal. No emboli or other suspicious finding. No acute or significant aorta f indings. No mass or infiltrate in the lung parenchyma. Bibasilar atelectatic changes. No pleural thickening or pleural effusion. No pneumothorax. No abnormal mediastinal or hilar masses or lymphadenopathy seen. No chest wall mass or abnormal axill iary lymphadenopathy. Right breast 2.1 cm soft tissue density with adjacent clips, correlate with prior mammographic findin gs. IMPRESSION: No evidence of acute central pulmonary emboli. No other acute findings. Incidental findings as above.
--- NOTE | 2024-02-11 00:06 | RAD REPORT ---
EXAM DESCRIPTION: US - Extrem Venous W Compress Lamont - 02/10/2024 6:04 pm CLINICAL HISTORY: Shortness of breath. Rule out DVT COMPARISON: None. TECHNIQUE: Real-time sonographic evaluation of the bilateral lower extremity deep venous systems was performed. FINDINGS: Normal compressibility, flow augmentation, phasic flow and spontaneous flow is identified in both the left and right lower extremity deep venous systems. No intraluminal filling defects seen. IMPRESSION: No DVT in either lower extremity.
[2024-02-11] MEDS: HYDROCODONE/APAP 5/325 MG TAB PO ONE ×2 (05:01→23:05)
[2024-02-11 06:01] LABS: Absolute Lymphocytes (CBC) 0.8 K/uL (0.7-4.9); Absolute Monocytes 0.1 K/uL (0.1-1.3); Absolute Neutrophil 7.5 K/uL (1.8-8.0); Basophils % 0.3 % (0-1.3); Eosinophils % 0.1 % (0-4.4); Hematocrit 38.7 % (36.0-45.0); Hemoglobin 12.8 g/dL (12.0-15.0); Lymphocytes % 9.8 % (15.3-44.8); MCH 30.4 pg (27.0-35.0); MCV 92.3 fL (80-100); MPV 7.5 fL (7.6-11.3); Monocytes % 1.2 % (3.3-12.3); Neutrophils % 88.6 % (41.7-73.7); Nucleated Red Blood Cells % 0.1 % (0-0); Platelets 274 thou/uL (152-406); Red Cell Distribution Width 13.2 % (12.1-15.2)
[2024-02-11 06:17] LABS: Anion Gap 6.5 mEq/L (5.0-15.0); Magnesium 2.8 mg/dL (1.6-2.4); Potassium 4.5 mEq/L (3.5-5.1)
[2024-02-11 07:39] LABS: Blood Morphology Comment NOT SEEN (NOT SEEN); Platelet Estimate ADEQ; White Blood Cell Scan OK (OK)
--- NOTE | 2024-02-11 10:02 | P.PN ---
Date of Service: 02/11/24 Subjective: feels breathing is a little easier compared to yesterday feels breathing treatments temporarily helps for a few hours. dyspnea worsened with light activity / exertion has oxygen setup at home secondary to COPD/asthma. uses ~5L NC chronically for ~2 years thinks her legs have been more swollen than usual these past few weeks states she has been in/out ERs/Urgent cares / hospital for last 4-6 weeks due to this new/worsening breathing issues afebrile ROS: 10 point ROS as noted above, otherwise negative Physical Exam: GEN: Alert, oriented, NAD HEENT: Normal conjunctiva, sclera anicteric, CV: Regular rate and rhythm, 1+ lower extremity edema above ankles Pulm: Nonlabored respirations on 4L NC, diminished at bases b/l, rhonchi ABD: soft, nontender, nondistended Neuro: Normal speech, normal affect Problem List: Acute hypoxic respiratory failure secondary to acute COPD exacerbation chronic diastolic CHF (HFpEF) NIDDM2 Hypertension Hyperlipidemia hx prior CVA hx breast cancer s/p lumpectomy; on chemo/radiation acute hypoxic respiratory failure secondary to acute COPD exacerbation Reports progressively worsening dyspnea over the past 3-4 weeks. Minimal relief with steroids/nebs previously has oxygen setup at home secondary to COPD/asthma. uses ~5L NC chronically for ~2 years CTA chest (02/09): no PE. No other acute findings. Right breast 2.1 cm soft tissue density with adjacent clips. CXR (02/09): negative for any acute findings venous u/s (02/09): no DVT in either extremity continue duonebs, home inhalers continue IV steroids, IV lasix pt reports increased lower extremity edema lately, has been taking her 40mg furosemide at home, not missing doses pulm consulted echo ordered to eval EF / stenosis chronic diastolic CHF (HFpEF) pt reports increased lower extremity edema lately, has been taking her 40mg furosemide at home, not missing doses troponin negative, BNP 33 continue IV lasix today, PO spironolactone NIDDM2 accu-checks, SSI Hypertension Hyperlipidemia hx prior CVA confirm home meds, restart as appropriate hx breast cancer s/p lumpectomy; on chemo/radiation Diagnosed with cancer ~4 years ago. On chemo/radiation. Last chemo ~2 weeks ago in [place] confirm home meds, restart as appropriate continue supportive care. VTE: Lovenox Code: Full Dispo: Home, 1-2 days continue home O2
--- NOTE | 2024-02-11 12:32 | P.PN ---
Subjective Date of Service: 02/11/24 Chief Complaint: Shortness of breath hypoxemia Subjective: Improving, Other (No change in patient's condition still short of breath) Review of Systems General: Weakness Respiratory: Shortness of Breath Physical Examination - Vital Signs Temperature: 97.2 F Blood Pressure: 140/70 Pulse: 74 Respirations: 17 Pulse Ox (%): 97 - Physical Exam General: Alert, Oriented x3 Respiratory: Clear to auscultation bilaterally Cardiovascular: No edema, Regular rate/rhythm - Studies Laboratory Data (last 24 hrs) 02/10/24 02/10/24 02/10/24 13:41 13:41 13:41 WBC 7.50 Hgb 12.1 Hct 38.8 Plt Count 251 PT 10.6 INR 0.96 APTT 27.9 Sodium 137 Potassium 3.6 BUN 8 Creatinine 0.80 Glucose 89 02/10/24 13:18 WBC Hgb Hct Plt Count PT Cancelled INR Cancelled APTT Sodium Potassium BUN Creatinine Glucose Assessment And Plan - Current Problems (Diagnosis) (1) Respiratory failure Current Visit: Yes Status: Acute Plan: Patient admitted with respiratory distress no evidence of thromboembolism or DVT labs reviewed mildly hypercapnic continue with present therapy DC IV Lasix awaiting echo he has underlying obstructive airways disease ambulate with assist discharge planning
--- NOTE | 2024-02-11 12:54 | ECHO ---
HEIGHT: 5 ft 3 in WEIGHT: 260 lb 0 oz DATE OF STUDY: 02/11/[address]: Luis A Hamilton MD 2-DIMENSIONAL: YES M.MODE: YES DOPPLER: YES COLOR FLOW: YES TDS: YES PORTABLE: YES DEFINITY: BUBBLE STUDY: DIAGNOSIS: DYSPNEA CARDIAC HISTORY: CATHERIZATION: YES SURGERY: NO PROSTHETIC VALVE: NO PACEMAKER: NO MEASUREMENTS (cm) DIASTOLIC (NORMALS) SYSTOLIC (NORMALS) IVSd 1.2 (0.6-1.2) LA Diam 2.1 (1.9-4.0) LVEF 60-65% LVIDd 4.1 (3.5-5.7) LVIDs 2.9 (2.0-3.5) %FS 30% LVPWd 1.2 (0.6-1.2) Ao Diam 2.8 (2.0-3.7) 2 DIMENSIONAL ASSESSMENT: RIGHT ATRIUM: NORMAL LEFT ATRIUM: NORMAL RIGHT VENTRICLE: NORMAL LEFT VENTRICLE: MILD LEFT VENTRICULAR HYPERTROPHY TRICUSPID VALVE: MILD TRICUSPID REGURGITATION MITRAL VALVE: TRACE MITRAL REGURGITATION PULMONIC VALVE: NORMAL AORTIC VALVE: MILD AORTIC REGURGITATION PERICARDIAL EFFUSION: NONE AORTIC ROOT: NORMAL LEFT VENTRICULAR WALL MOTION: NORMAL DOPPLER/COLOR FLOW: DIASTOLIC DYSFUNCTION COMMENTS: 1. NORMAL LEFT VENTRICULAR SYSTOLIC FUNCTION, EJECTION FRACTION 60-65%, NORMAL WALL MOTION 2. DIASTOLIC DYSFUNCTION 3. MILD PULMONARY HYPERTENSION (RIGHT VENTRICULAR SYSTOLIC PRESSURE 30-35 mmHg) TECHNOLOGIST: [employer]HT[employer] ALFONSO
--- NOTE | 2024-02-11 13:21 | EKG ---
Test Date: 2024-02-10 Test Time: 13:56:42 Eating Disorder Specialist: DAO MEASUREMENT RESULTS: Intervals: Rate: 77 NH: 126 QRSD: 86 QT: 350 QTc: 396 [place]: P: 66 NH: 126 QRS: 68 T: 57 INTERPRETIVE STATEMENTS: Normal sinus rhythm Nonspecific T wave abnormality Abnormal ECG Compared to ECG 09/08/2021 10:49:18 T-wave abnormality now present Electronically Signed On 02-11-24 13:18:21 CDT by William Sun
[2024-02-11] MEDS: DULERA 200/5 (MOMETASONE/FORMOTEROL) INHALER IH SCH (21:00)
[2024-02-11] MEDS: METHYLPREDNISOLONE 40 MG INJ IV SCH (21:07)
[2024-02-11] MEDS: ALBUTEROL 2.5 MG/3 ML NEB SOL NEB SCH (22:31)
[2024-02-12 06:50] LABS: Hematocrit 39.6 % (36.0-45.0); Hemoglobin 12.5 g/dL (12.0-15.0); MCH 29.5 pg (27.0-35.0); MCHC 31.6 g/dL (32.0-36.0); MCV 93.4 fL (80-100); Platelets 274 thou/uL (152-406); RBC Red Blood Cell Count 4.24 M/uL (3.86-4.86); Red Cell Distribution Width 13.6 % (12.1-15.2)
[2024-02-12 07:05] LABS: Magnesium 2.7 mg/dL (1.6-2.4)
[2024-02-12] MEDS ORDERED: ALBUTEROL INHALER 200 PUFF/6.7 GM IH PRN (07:56)
--- NOTE | 2024-02-12 08:14 | P.PN ---
Date of Service: 02/12/24 Subjective: continues with dyspnea, worsened with light activity worked with PT yesterday. feels shes getting out of breath more quickly recently left side chest feels tight/heavy lower extremity edema improving afebrile ROS: 10 point ROS as noted above, otherwise negative Physical Exam: GEN: Alert, oriented, NAD HEENT: Normal conjunctiva, sclera anicteric, CV: Regular rate and rhythm, 1+ lower extremity edema above ankles Pulm: Nonlabored respirations on 4L NC, diminished at bases b/l, rhonchi ABD: soft, nontender, nondistended Neuro: Normal speech, normal affect Problem List: Acute hypoxic respiratory failure secondary to acute COPD exacerbation chronic diastolic CHF (HFpEF) NIDDM2 Hypertension Hyperlipidemia hx prior CVA hx breast cancer s/p lumpectomy; on chemo/radiation acute hypoxic respiratory failure secondary to acute COPD exacerbation Reports progressively worsening dyspnea over the past 3-4 weeks. Minimal relief with steroids/nebs previously has oxygen setup at home secondary to COPD/asthma. uses ~5L NC chronically for ~2 years CTA chest (02/09): no PE. No other acute findings. Right breast 2.1 cm soft tissue density with adjacent clips. Echo (02/10): 60-65%EF, diastolic dysfunction, mild pulmonary hypertension venous u/s (02/09): no DVT in either extremity continue duonebs, home inhalers continue IV steroids, IV lasix pt reports increased lower extremity edema lately, has been taking her 40mg furosemide at home, not missing doses pulm consulted CXR ordered to reeval suspect mild leukocytosis reactive to steroids chronic diastolic CHF (HFpEF) pt reports increased lower extremity edema lately, has been taking her 40mg furosemide at home, not missing doses troponin negative, BNP 33 continue IV lasix today, PO spironolactone NIDDM2 accu-checks, SSI Hypertension Hyperlipidemia hx prior CVA confirm home meds, restart as appropriate hx breast cancer s/p lumpectomy; on chemo/radiation Diagnosed with cancer ~4 years ago. On chemo/radiation. Last chemo ~2 weeks ago in [place] confirm home meds, restart as appropriate continue supportive care. VTE: Lovenox Code: Full Dispo: Home, 1-2 days continue home O2
[2024-02-12 08:39] VITALS: BP 171/87; TEMP 97.5
--- NOTE | 2024-02-12 08:42 | P.DS ---
Admission Date: 02/10/24 Discharge Date: 02/12/24 Disposition: ROUTINE DISCHARGE Reason for Admission: Shortness of breath hypoxemia Consultations: Pulmonology - Dr. Hamilton Brief History of Present Illness: 58 years of age has been having progressive dyspnea for the past 3 weeks patient has been to [facility] emergency room couple of times has been treated outpatient with steroids nebulizers and with no relief. History of breast cancer treated with chemo and lumpectomy last chemo was 2 weeks ago in [place] denies any lower extremity edema no fever or chills Hospital Course: Problem List: Acute hypoxic respiratory failure secondary to acute COPD exacerbation / mild diastolic CHF exacerbation (HFpEF) NIDDM2 Hypertension Hyperlipidemia hx prior CVA hx breast cancer s/p lumpectomy; on chemo/radiation Physician discharge instructions: Patient presented with worsening dyspnea over the past few weeks and was found to have an acute COPD exacerbation complicated by mild diastolic CHF exacerbation . CTA chest was negative for PE or any acute findings. Chest xray was without any acute findings. Echocardiogram this hospitalization with normal EF 60-65%, noted mild pulmonary hypertension and diastolic dysunction.. Pulmonology, Dr. Hamilton, was consulted. Patient had improvement of her breathing with steroids, diuretics, nebulizers, along with restarting her home meds/inhalers. Patient was feeling better, breathing more comfortable on her home oxygen settings, ambulated with PT with a few breaks and was deemed stable for discharge to resume her home inhalers - reported taking long acting /maintenance inhalers as well as short acting. Patient responded well to spironolactone while hospitalized and advised patient to continue spironolactone 25mg daily on discharge to assist with CHF optimization. Discussed natural progression of COPD. Uncertain if chemo/radiation could be contributing to her symptoms as well. Medications: Prednisone 10 mg twice daily for 7 days Spironolactone 25 mg daily continue other home medications/inhalers not listed as previously prescribed. Follow up: PCP 3-5 days Pulmonology 2-4 weeks Please call to schedule / confirm appointments Physical Exam: GEN: Alert, oriented, NAD HEENT: Normal conjunctiva, sclera anicteric, CV: Regular rate and rhythm, trace-1+ lower extremity edema above ankles Pulm: Nonlabored respirations on 4L NC, mildly diminished at bases b/l ABD: soft, nontender, nondistended Neuro: Normal speech, normal affect Vital Signs/Physical Exam: Temp Pulse Resp BP Pulse Ox 97.5 F 70 18 171/87 H 97 02/12/24 08:00 02/12/24 08:00 02/12/24 08:00 02/12/24 08:00 02/12/24 08:00 Laboratory Data at Discharge: WBC 14.10 thou/uL (4.3-10.9) H 02/12/24 06:29 Hgb 12.5 g/dL (12.0-15.0) 02/12/24 06:29 Hct 39.6 % (36.0-45.0) 02/12/24 06:29 Plt Count 274 thou/uL (152-406) 02/12/24 06:29 PT 10.6 SECONDS (9.5-12.5) 02/10/24 13:41 INR 0.96 02/10/24 13:41 APTT 27.9 SECONDS (24.3-36.9) 02/10/24 13:41 Sodium 135 mEq/L (136-145) L 02/12/24 06:29 Potassium 5.0 mEq/L (3.5-5.1) 02/12/24 06:29 BUN 19 mg/dL (7-18) H 02/12/24 06:29 Creatinine 0.87 mg/dL (0.55-1.02) 02/12/24 06:29 Glucose 134 mg/dL (74-106) H 02/12/24 06:29 Magnesium 2.7 mg/dL (1.6-2.4) H 02/12/24 06:29 Home Medications: Albuterol Neb [Proventil 0.083% Neb Soln] 2.5 mg IH Q4H PRN 12/18/18 Furosemide [Lasix] 40 mg PO SEECOM 12/18/18 carvediloL [Coreg*] 6.25 mg PO BID 12/18/18 Nitroglycerin [Nitrostat] 0.25 mg SL BID PRN 12/20/18 Amlodipine [Norvasc*] 10 mg PO DAILY 02/11/24 Famotidine 40 mg PO 02/11/24 Ferrous Sulfate [Feosol] 325 mg PO 02/11/24 Gabapentin 600 mg PO 02/11/24 Insulin Aspart Prot/Insuln Asp [Novolog Mix 70-30 Flexpen] 20 unit SQ BID 02/11/24 Spironolactone [Aldactone*] 25 mg PO DAILY 30 Days #30 tab 02/12/24 predniSONE [Deltasone*] 10 mg PO BID 7 Days #14 tab 02/12/24 New Medications: Spironolactone [Aldactone*] 25 mg PO DAILY 30 Days #30 tab predniSONE [Deltasone*] 10 mg PO BID 7 Days #14 tab Physician Discharge Instructions: Physician discharge instructions: Patient presented with worsening dyspnea over the past few weeks and was found to have an acute COPD exacerbation complicated by mild diastolic CHF exacerbation . CTA chest was negative for PE or any acute findings. Chest xray was without any acute findings. Echocardiogram this hospitalization with normal EF 60-65%, noted mild pulmonary hypertension and diastolic dysunction.. Pulmonology, Dr. Hamilton, was consulted. Patient had improvement of her breathing with steroids, diuretics, nebulizers, along with restarting her home meds/inhalers. Patient was feeling better, breathing more comfortable on her home oxygen settings, ambulated with PT with a few breaks and was deemed stable for discharge to resume her home inhalers - reported taking long acting /maintenance inhalers as well as short acting. Patient responded well to spironolactone while hospitalized and advised patient to continue spironolactone 25mg daily on discharge to assist with CHF optimization. Discussed natural progression of COPD. Uncertain if chemo/radiation could be contributing to her symptoms as well. Medications: Prednisone 10 mg twice daily for 7 days Spironolactone 25 mg daily continue other home medications/inhalers not listed as previously prescribed. Follow up: PCP 3-5 days Pulmonology 2-4 weeks Please call to schedule / confirm appointments Followup: Vickie STEPHEN,Nikole Vigil DO [Primary Care Provider] -
[2024-02-12] MEDS: carvediloL 6.25 MG TAB PO SCH (08:44)
[2024-02-12] MEDS: AMLODIPINE 10 MG TAB PO SCH (08:44)
[2024-02-12] MEDS: ENOXAPARIN 40 MG/0.4 ML SQ SCH (08:50)
[2024-02-12] MEDS: GABAPENTIN 300 MG CAP PO SCH (08:50)
[2024-02-12 10:01] VITALS: O2SAT 97
--- NOTE | 2024-02-12 12:45 | RAD REPORT ---
EXAM DESCRIPTION: RADChest Single View02/12/2024 9:49 am CLINICAL HISTORY: hypoxia, short of breath, eval opacities COMPARISON: Chest Single View dated 02/10/2024; Chest Single View dated 09/08/2021; Chest Single View dated 08/24/2021; Chest Single View dated 12/18/2018 TECHNIQUE: Portable AP view of the chest. FINDINGS: The lungs are clear. No pneumothorax or effusion. The cardiomediastinal contours are unre markable. IMPRESSION: No acute cardiopulmonary process.
== END 2024-02-12 10:04 | disposition home health service (06) | DRG 291 ==
LOC: ER 13:12 → ERHOLD 17:08 → 2ND 17:47
PROVIDERS: ADMIT Internal Medicine Sleep Medicine; ATTEND Hospitalist
PROC: 4A033R1 Measurement of Arterial Saturation, Peripheral, Percutaneous Approach (ICD-10-PCS; principal; 2024-02-10)
DX: I11.0 Hypertensive heart disease with heart failure (principal); I50.33 Acute on chronic diastolic (congestive) heart failure; J96.01 Acute respiratory failure with hypoxia; J44.1 Chronic obstructive pulmonary disease with (acute) exacerbation; C50.912 Malignant neoplasm of unspecified site of left female breast; C50.911 Malignant neoplasm of unspecified site of right female breast; E78.5 Hyperlipidemia, unspecified; E11.9 Type 2 diabetes mellitus without complications; I25.2 Old myocardial infarction; Z88.8 Allergy status to other drugs, medicaments and biological substances; Z11.52 Encounter for screening for COVID-19; Z99.81 Dependence on supplemental oxygen; Z79.52 Long term (current) use of systemic steroids; Z79.02 Long term (current) use of antithrombotics/antiplatelets; Z86.73 Personal history of transient ischemic attack (TIA), and cerebral infarction without residual deficits; Z79.899 Other long term (current) drug therapy
CPT/HCPCS: 0241U; 36415; 36600; 71045; 71275; 80048; 82805; 82947; 83605; 83735; 83880; 84484; 85025; 85027; 85610; 85730; 87040; 93005; 93306; 93970; 94640; 96374; 96375; 97116; 97161; 97530; 99285; J0696; J1650; J1940; J2919; J2920; J3475; J3535; J7050; J7605; J7613; J7644; Q9967